=== PATIENT | female | born 1970 | race Hispanic/Latino ===

== ENCOUNTER 2017-06-07 16:38 | Emergency (ER) | payer MEDICAID, OTHER ==
[2017-06-07 16:46] VITALS: BMI 33.3
[2017-06-07 16:51] VITALS: BP 142/89; PULSE 97; TEMP 98.2; O2SAT 99
--- NOTE | 2017-06-07 17:06 | C.PDOC ---
History Of Present Illness 47 y/o female presents to the ED stating she thinks a tampon is stuck in her vagina. Pt has been on her period x5 days. Denies fever, chills, abdominal/ pelvic pain or any other complaints. Time Seen by Provider: 06/07/17 16:56 Chief Complaint (Nursing): Female Genitourinary History Per: Patient History/Exam Limitations: no limitations Onset/Duration Of Symptoms: Hrs Current Symptoms Are (Timing): Still Present Severity: Mild Quality Of Discomfort: denies: "Pain" Associated Symptoms: denies: Fever, Chills Recent travel outside of the [place]: No Past Medical History Reviewed: Historical Data, Nursing Documentation, Vital Signs Vital Signs: Last Vital Signs Temp 98.2 F 06/07/17 16:46 Pulse 97 H 06/07/17 16:46 Resp 18 06/07/17 17:27 BP 142/89 06/07/17 16:46 Pulse Ox 99 06/07/17 18:11 - Medical History PMH: Anxiety, Asthma, Bipolar Disorder, Colonic Polyps, Depression, Diverticulitis Surgical History: Appendectomy, Endoscopy - [facility] Procedures OTHER SKIN & SUBQ I D (05/06/13) Family History: States: Unknown Family Hx - Social History Hx Tobacco Use: Yes Hx Alcohol Use: No Hx Substance Use: No - Immunization History Hx Tetanus Toxoid Vaccination: No Hx Influenza Vaccination: No Hx Pneumococcal Vaccination: No Review Of Systems Constitutional: Negative for: Fever, Chills Gastrointestinal: Negative for: Abdominal Pain Genitourinary: Negative for: Pelvic Pain Physical Exam - Physical Exam Appears: Non-toxic, No Acute Distress Skin: Warm, Dry, No Rash Head: Atraumatic, Normacephalic Chest: Symmetrical Cardiovascular: Rhythm Regular Respiratory: Normal Breath Sounds, No Rales, No Rhonchi, No Wheezing Gastrointestinal/Abdominal: Soft, No Tenderness Pelvic: Vaginal Bleeding, No Cervical Motion Tenderness, Other (no foreign body) Neurological/Psych: Oriented x3, Normal Speech ED Course And Treatment O2 Sat by Pulse Oximetry: 99 (room air) Pulse Ox Interpretation: Normal Medical Decision Making Medical Decision Making: Patient with complaint of thinking tampon stuck in her vagina. Exam showed mild blood in vaginal canal, no tampon or foreign body, no CMT. Patient to be discharged Disposition Counseled Patient/Family Regarding: Diagnosis, Need For Followup - [facility]position [facility] Disposition: HOME/ ROUTINE Disposition Time: 17:05 Condition: STABLE Additional Instructions: You have been evaluated and examined with no finding of foreign object in vagina. Please follow up with your placement specialist for any other concern Instructions: Normal Exam (ED) Forms: [employer] (Welsh) - POA Present On Arrival: None - Clinical Impression Clinical Impression: No foreign body found on evaluation - PA / FINANCIAL ASSOCIATE / Resident Statement MD/DO has reviewed & agrees with the documentation as recorded. - Scribe Statement The provider has reviewed the documentation as recorded by the Scribe Horacio Nelson All medical record entries made by the Tona were at my direction and personally dictated by me. I have reviewed the chart and agree that the record accurately reflects my personal performance of the history, physical exam, medical decision making, and the department course for this patient. I have also personally directed, reviewed, and agree with the discharge instructions and disposition.
[2017-06-07 17:28] VITALS: RESP 18
== END 2017-06-07 17:28 | disposition home or self-care (01) ==
LOC: C.ER 16:38
DX: Z03.89 Encounter for observation for other suspected diseases and conditions ruled out (principal)

== ENCOUNTER 2018-11-03 02:46 | Inpatient (IN) | payer MEDICAID ==
[2018-11-03 02:47] VITALS: BMI 33.3
[2018-11-03] MEDS ORDERED: Folic Acid 1 MG, Thiamine 100 MG, Multivitamin (MVI) 10 ML in Dextrose 5% In Water 1,00... IV SCH (04:00)
[2018-11-03 04:27] LABS: SQUAMOUS EPITHIAL 2 /hpf (0-5); URINE BACTERIA RARE (<OCC); URINE BILIRUBIN NEGATIVE (NEGATIVE); URINE BLOOD NEGATIVE (NEGATIVE); URINE CLARITY Clear (Clear); URINE COLOR Yellow (YELLOW); URINE GLUCOSE (UA) NORMAL (Normal); URINE LEUKOCYTE ESTERASE TRACE Leu/uL (Negative); URINE PROTEIN 1+ mg/dL (NEGATIVE)
[2018-11-03 04:30] LABS: BASO # 0.1 K/uL (0.0-0.2); BASO % 0.9 % (0.0-2.0); EOS # 0.1 K/uL (0.0-0.7); EOS % 1.3 % (0.0-4.0); HEMOGLOBIN 15.2 g/dL (11.0-16.0); LYMPH # 1.5 K/uL (1.0-4.3); LYMPH % 21.1 % (20.0-40.0); MEAN CELL VOLUME 97.7 fL (81.0-99.0); MEAN CORPUSCULAR HEMOGLOBIN 33.2 pg (27.0-31.0); MEAN CORPUSCULAR HGB CONC 33.9 g/dL (33.0-37.0); MEAN PLATELET VOLUME 7.2 fL (7.2-11.7); MONO # 0.7 K/uL (0.0-0.8); MONO % 10.1 % (0.0-10.0); NEUT # 4.8 K/uL (1.8-7.0); NEUT % 66.6 % (50.0-75.0); NRBC % 0.5 % (0.0-2.0); RBC 4.59 Mil/uL (3.80-5.20); RED CELL DISTRIBUTION WIDTH 15.2 % (11.5-14.5); WHITE BLOOD COUNT 7.2 K/uL (4.8-10.8)
[2018-11-03 04:33] LABS: HCG,QUALITATIVE URINE NEGATIVE (NEGATIVE)
[2018-11-03 04:38] LABS: BARBITURATES, UR NEGATIVE (NEGATIVE); BENZODIAZEPINES, UR NEGATIVE (NEGATIVE); OPIATES, UR NEGATIVE (NEGATIVE); PHENCYCLIDINE, UR NEGATIVE (NEGATIVE)
[2018-11-03] MEDS: Folic Acid 1 MG, Thiamine 100 MG, Multivitamin (MVI) 10 ML in Dextrose 5% In Water 1,00... IV SCH (04:38)
[2018-11-03 04:46] LABS: ALB/GLOB RATIO 1.3 (1.0-2.1); ALBUMIN 4.1 g/dL (3.5-5.0); ALT/SGPT 110 U/L (9-52); AST/SGOT 191 U/L (14-36); BLOOD UREA NITROGEN 3 mg/dL (7-17); CALCIUM 7.9 mg/dl (8.6-10.4); GFR NON-AFRICAN AMERICAN > 60; LIPASE 516 U/L (23-300)
[2018-11-03] MEDS ORDERED: Iodixanol 320 MG/ML 100 ML BOTTLE IV ONE (05:15)
--- NOTE | 2018-11-03 05:34 | C.PDOC ---
History Of Present Illness 48 y/o F c PMHx alcohol abuse p/w abdominal pain, vomiting x 2 weeks. States has been drinking daily for 2 months. Pain is epigastric, nonradiating, boring in quality, severe. Denies fever, chills, chest pain, dyspnea, dysuria. Time Seen by Provider: 11/03/18 03:01 Chief Complaint (Nursing): Substance Abuse Past Medical History Vital Signs: Last Vital Signs Temp 98.7 F 11/03/18 03:09 Pulse 103 H 11/03/18 03:09 Resp 16 11/03/18 03:09 BP 117/74 11/03/18 03:09 Pulse Ox 97 11/03/18 03:09 - Medical History PMH: Anxiety, Asthma, Bipolar Disorder, Colonic Polyps, Depression, Diverticulitis Denies: Chronic Kidney Disease Surgical History: Appendectomy, Endoscopy - [facility] Procedures OTHER SKIN & SUBQ I D (05/06/13) Family History: States: Unknown Family Hx - Social History Hx Tobacco Use: Yes Hx Alcohol Use: Yes Hx Substance Use: No - Immunization History Hx Tetanus Toxoid Vaccination: No Hx Influenza Vaccination: No Hx Pneumococcal Vaccination: No Review Of Systems Except As Marked, All Systems Reviewed And Found Negative. Constitutional: Negative for: Fever Cardiovascular: Negative for: Chest Pain Physical Exam - Physical Exam Appears: No Acute Distress Skin: Rash (Erythematous face) Head: Normacephalic Eye(s): bilateral: PERRL Oral Mucosa: Moist Neck: Supple Cardiovascular: Rhythm Regular Respiratory: Normal Breath Sounds Gastrointestinal/Abdominal: Tenderness (epigastric) Back: No CVA Tenderness Extremity: No Tenderness Pulses: Left Radial: Normal, Right Radial: Normal Neurological/Psych: Normal Speech Gait: Steady ED Course And Treatment - Laboratory Results Result Diagrams: 11/03/18 04:25 11/03/18 04:25 O2 Sat by Pulse Oximetry: 97 Medical Decision Making Medical Decision Making: CT abd/pel Results: COMMENTS: Small sliding hiatal hernia. Mild diffuse thickening of the wall of the colon. The liver is of decreased attenuation without mass or defect. There is no intra or extrahepatic biliary ductal dilatation. The spleen is normal. The gallbladder is within normal limits. The pancreas is of normal contour and attenuation characteristics. There is no evidence of adrenal mass. Both kidneys demonstrate prompt and equal nephrograms. The kidneys are normal in size, shape and configuration. There is no evidence of renal or ureteral mass. No renal or ureteral calculi are identified. There is no hydroureter or hydronephrosis. No evidence for appendicitis. There is no bowel wall thickening. No evidence for small or large bowel obstruction. There is no evidence of abdominal ascites or lymphadenopathy. There is no evidence of intrinsic or extrinsic bladder mass. There is no pelvic ascites or lymphadenopathy. Mild diffuse thickening of the bladder. Images of the lung bases show no evidence of pleural or parenchymal mass. There are no pleural effusions. The bony structures are free of lytic or blastic lesions. IMPRESSION: Mild diffuse thickening of the colon. Underdistention, spasm versus mild colitis. Mild diffuse thickening of the bladder. Underdistention versus mild cystitis. Crisis evaluated patient, accepted for admission by Dr. Luis. Disposition - Disposition Disposition: HOSPITALIZED Disposition Time: 06:00 Condition: GUARDED Forms: [employer] (Togolese) - Clinical Impression Clinical Impression: Bipolar disorder, Alcohol use disorder, severe, dependence
[2018-11-03] MEDS ORDERED: Albuterol-Ipratrop 3 mg / 0.5 (3 ml) UD IH STA (07:45)
[2018-11-03] MEDS ORDERED: Albuterol-Ipratrop 3 mg / 0.5 (3 ml) UD ONE (07:53)
[2018-11-03] MEDS ORDERED: Albuterol-Ipratrop 3 mg / 0.5 (3 ml) UD INH PRN ×2 (08:58→22:45)
--- NOTE | 2018-11-03 10:23 | CT ---
Date of service: 11/03/2018 PROCEDURE: CT Abdomen and Pelvis with contrast HISTORY: abd pain, vomiting COMPARISON: None. TECHNIQUE: Contrast dose: Radiation dose: Total exam DLP = 1060.15 mGy-cm. This CT exam was performed using one or more of the following dose reduction techniques: Automated exposure control, adjustment of the mA and/or kV according to patient size, and/or use of iterative reconstruction technique. FINDINGS: LOWER THORAX: Unremarkable. LIVER: Severe fatty infiltration of the liver. No gross lesion or ductal dilatation. GALLBLADDER AND BILE DUCTS: Unremarkable. PANCREAS: Unremarkable. No gross lesion or ductal dilatation. SPLEEN: Unremarkable. ADRENALS: Unremarkable. No mass. KIDNEYS AND URETERS: Unremarkable. No hydronephrosis. No solid mass. VASCULATURE: Unremarkable. No aortic aneurysm. No aortic atherosclerotic calcification or mural plaque present. BOWEL: Unremarkable. No obstruction. No gross mural thickening. APPENDIX: Normal appendix. PERITONEUM: Unremarkable. No free fluid. No free air. LYMPH NODES: Unremarkable. No enlarged lymph nodes. BLADDER: Unremarkable. REPRODUCTIVE: Unremarkable. BONES: No acute fracture. OTHER FINDINGS: None. IMPRESSION: Severe fatty liver.
[2018-11-03] MEDS: Multiple Vitamins Tab PO SCH (10:40)
[2018-11-03] MEDS: Pantoprazole 40 mg EC Tab PO SCH (10:40)
--- NOTE | 2018-11-03 10:54 | PCM.PSYCH ---
Initial Psychiatric Evaluation - Initial Psychiatric Evaluation Type of Admission: Voluntary Legal Status: Capacity Chief Complaint (in patient's own words): I was feeling depressed.' History of Present Illness and Precipitating Events: Patient is a 48 yo, female, who came to the ED because of depressed mood and suicidal ideation. Patient reports history of few inpatient psychiatric hospitalizations in the past. She also reports history of follow-up with a psychiatrist at [facility], as well as the methadone program, '[facility].' Patient reports that she is drinking increasing amount of liquor these days. Patient reports of drinking more than a pint of liquor daily. Pt's initial KJC=011. Patient reports that "I've been throwing up even when I do drink" Pt reports symptoms of "bloated" face, "throwing up", and "closing" of the throat. She reports that she is been feeling like that for the past "2 or 3 weeks". She reports that yesterday she became increasingly depressed and developed suicidal ideation with a plan to overdose on her pills. So she came to the hospital to get help. She reports depressed mood, feelings of hopelessness, helplessness and worthlessness. She reports poor sleep and poor appetite. She reports anhedonia and poor energy. She also reports withdrawal symptoms from drinking, including, shakes, tremors, nausea, vomiting, headaches, cramps, sweating and anxiety. However she denies any auditory hallucinations or any paranoia. She denies any other substance abuse. Pt has a prior history of an incomplete suicide attempt, when she stepped on her left arm, few years ago. Patient reports of drinking since age 8. She also reports family history of drinking. She is going to [facility] and her daily methadone dose is 140 mg. Past medical history Asthma Current Medications: Active Medications Generic Name Dose Route Start Last Admin Trade Name Freq PRN Reason Stop Dose Admin Albuterol 1 puff 11/03/18 09:30 Ventolin Hfa 90 Mcg/Actuation (8 G) INH RQ4 PRN SOB Albuterol/Ipratropium 3 ml 11/03/18 08:58 Duoneb 3 Mg/0.5 Mg (3 Ml) Ud INH RQ2 PRN Severe SOB or wheezing Clonidine HCl 0.1 mg 11/03/18 08:56 Catapres PO Q4H PRN Symptoms of alcohol withdrawl Escitalopram Oxalate 10 mg 11/03/18 10:00 11/03/18 10:40 Lexapro PO 10 mg DAILY BRODIE Administration Folic Acid 1 mg 11/03/18 10:00 11/03/18 10:40 Folic Acid PO 1 mg DAILY BRODIE Administration Folic Acid 1 mg/ Thiamine HCl 1,011.2 mls @ 250 mls/hr 11/03/18 04:30 11/03/18 04:38 100 mg/ Multivitamins/Vitamin IV 250 mls/hr C 10 ml/ Dextrose Q24H BRODIE Administration Lorazepam 1 mg 11/03/18 08:56 Ativan PO 11/07/18 08:57 Q4H PRN Symptoms of alcohol withdrawl Lorazepam 1 mg 11/03/18 10:00 11/03/18 10:40 Ativan PO 11/08/18 09:59 1 mg Q4H BRODIE Administration Taper Mirtazapine 15 mg 11/03/18 22:00 Remeron PO HS BRODIE Multivitamins 1 tab 11/03/18 10:00 11/03/18 10:40 Hexavitamin PO 1 tab DAILY BRODIE Administration Pantoprazole Sodium 40 mg 11/03/18 10:00 11/03/18 10:40 Protonix Ec Tab PO 40 mg DAILY BRODIE Administration Thiamine HCl 100 mg 11/03/18 10:00 11/03/18 10:44 Vitamin B1 Tab PO 100 mg DAILY BRODIE Administration Trazodone HCl 50 mg 11/03/18 08:56 Desyrel PO HS PRN Insomnia Past Psychiatric History - Past Psychiatric History Previous Treatment History: Inpatient Pertinent Medical Hx (Current Medical&Sleep Prob, Allergies): Allergies Allergy/AdvReac Type Severity Reaction Status Date / Time ciprofloxacin Allergy Verified 11/03/18 03:14 Escitalopram [Lexapro] 10 mg PO DAILY 08/08/15 Ziprasidone HCl [Geodon] 80 mg PO BID 08/08/15 clonazePAM [clonAZEPAM] 1 mg PO BID 08/08/15 traZODone [Desyrel] 200 mg PO HS 08/08/15 Fluticasone Propionate [Flovent Hfa] 0.22 mg IH DAILY 08/25/15 Pantoprazole Sodium 20 mg PO DAILY 08/25/15 Cyclobenzaprine [Cyclobenzaprine HCl] 10 mg PO TID 06/07/17 Ibuprofen [Motrin] 600 mg PO TID 06/07/17 Review of Systems - Review of Systems All systems: reviewed and no additional remarkable complaints except - Psychiatric Psychiatric: Anxiety, Irritability, Suicidal Ideation Mental Status Examination - Personal Presentation Personal Presentation: Looks stated age - Affect Affect: Constricted, Depressed - Motor Activity Motor Activity: Calm - Reliability in Providing Information Reliability in Providing Information: Fair - Speech Speech: Organized - Mood Mood: Depressed, Anxious - Formal Thought Process Formal Thought Process: No Impairment - Obsessions/Compulsions Obsessions: No Compulsions: No - Cognitive Functions Orientation: Person, Place, Situation, Time Sensorium: Alert Attention/Concentration: Attentive Abstract Thinking: Golf Estimate of Intelligence: Below average Judgement: Imparied, as evidence by: Poor judgement, Imparied, as evidence by: Lack of insight into illness - Risk Risk: Suicidal, Withdrawal, Diminished functioning - Limitations Limitations: Living alone DSM 5 DX - DSM 5 DSM 5 Diagnosis: Major depressive disorder recurrent severe without psychotic features Alcohol use disorder severe Alcohol withdrawal Opioid use disorder severe on Agonist therapy - Recommended/Plan of Treatment Treatment Recommendations and Plan of Treatment: Major depressive disorder recurrent severe without psychotic features Alcohol use disorder severe Alcohol withdrawal Opioid use disorder severe on Agonist therapy CBT Psychoeducation Supportive therapy and group therapy Trazodone 50 mg p.o. nightly Hydroxyzine 25 mg p.o. every 6 hours as needed Lexapro 10 mg p.o. daily Remeron 15 mg p.o. nightly Trazodone 200 mg p.o. nightly Ativan taper Methadone 140 mg p.o. daily
--- NOTE | 2018-11-03 11:16 | RAD ---
Date of service: 11/03/2018 PROCEDURE: CHEST RADIOGRAPH, 1 VIEW HISTORY: wheezing COMPARISON: 04/18/2018. FINDINGS: LUNGS: Clear. PLEURA: No pneumothorax or pleural fluid seen. CARDIOVASCULAR: No aortic atherosclerotic calcification present. Normal. OSSEOUS STRUCTURES: No significant abnormalities. VISUALIZED UPPER ABDOMEN: Normal. OTHER FINDINGS: None. IMPRESSION: No active disease.No significant interval change compared to the prior examination(s). Concordant results with the preliminary interpretation rendered by the emergency department physician procedure.
--- NOTE | 2018-11-03 11:42 | PCM.BM ---
<Gala Barkley - Last Filed: 11/03/18 11:39> Treatment Plan Problems - Problems identified on initial assessmt Bipolar disorder Date Initiated: 11/03/18 Time Initiated: 09:10 Assessment reference: NA Status: Active Alcohol Abuse Date Initiated: 11/03/18 Time Initiated: 09:10 Assessment reference: NA Status: Active Treatment assets and liabiliti Patient Assests: cooperative, resourceful (Pt. informe of the [facility] for methadone), physically healthy, good support system (Live near by mom), financial stabiity (Received social benefit.) Patient Liabilities: live alone ([address] substance abuse, medical problems (Obese) - Milieu Protocol Maintain good personal hygiene: daily Encourage regular showers, daily Remind patient to perform daily oral care, daily Assist patient to perform ADL's Maintain personal safety: every shift Educate patient to report safety concerns to staff, every shift Monitor environment for contraband/sharps Medication safety: Monitor for expected outcome, potential side effects: every shift, Assess barriers to learning: every shift, Assess readiness for medication education: every shift <Sekou Luis - Last Filed: 11/05/18 14:34> - Diagnosis (1) Alcohol use disorder, severe, dependence Status: Acute Interventions: 11/04/18 14:34 * Assess 7x/week regarding severity of withdrawal * Educate regarding risks, benefits, side effects and alternatives of medications * Use Motivational Interviewing for abstinence * Use CBT for relapse prevention * Medication management for withdrawal symptoms * Encourage medication assisted treatment * (2) Bipolar disorder Status: Acute Interventions: 11/04/18 14:34 * Assess/adjust medications daily and /or as needed * See patient on an individual basis 7x/week to assess level of manic behaviors and stability * Discuss risks, benefits, side effects and alternatives of medications *
[2018-11-03] MEDS ORDERED: Methadone 40 mg Tab PO SCH (11:45)
[2018-11-03] MEDS: Albuterol HFA 90 mcg/actuation (8 g) INH PRN (12:29)
[2018-11-03] MEDS ORDERED: Methadone 40 mg Tab PO ONE (13:30)
--- NOTE | 2018-11-03 16:12 | CP.PCM.CON ---
History of Present Illness - History of Present Illness History of Present Illness: PGY1 Consult Note for Dr. Berry Reason for Consult: lower extremity edema b/l Patient has a past medical history of asthma, depression, diverticulitis, bipolar disorder, opioid abuse (on methadone) and alcohol abuse. Medicine consu lted for unilateral R leg edema. Patient states that she noticed swelling of her right foot and ankle about 2-3 days ago which came on suddenly. The pain is 10/10 and does not radiate to proximal leg or foot. Patient notes increased numbness/tingling. States she has an allergy to Cipro, but has not taken recently. She denies any recent trauma to the area including cuts, scrapes, bruises, or walking barefoot. Denies history of DVT/PE. Pt is a 1/2 ppd smoker. Denies OCP use. She is currently unemployed and lives at home with her mother. Patient does also report facial swelling, though states she gets this from drinking. Denies facial pain, does report blurry vision though states she gets this from withdrawal. Denies shortness of breath out of proportion to her usual asthma. PMH: asthma, depression, diverticulitis, bipolar disorder, opioid abuse (on methadone) and alcohol abuse PSH: appendectomy, ovarian cystectomy, partial colectomy, multiple surgeries on R foot (ingrown toenail removal, unknown other) Family: Denies/unknown Social: opioid abuse (on methadone) and alcohol abuse. tobacco use. Denies any current IV drug use. Drinks 2 pints liquor/day. Last drink and cigarette yesterday. Unemployed, lives with mother. Allergies: Ciprofloxacin Meds: trazodone 200mg PO HS, clonazepam 1mg PO BID, geodon 80mg PO BID, Protonix 20mg PO daily, motrin 600mg PO TID, flovent 0.22mg IH daily, Lexapro 10mg PO daily, flexaril 10mg PO TID PMD: Dr. Adair Review of Systems - Constitutional Constitutional: absent: Chills, Fever - EENT Eyes: absent: Blurred Vision, Loss of Vision Ears: Dizziness. absent: Abnormal Hearing Nose/Mouth/Throat: absent: Nasal Congestion, Nasal Discharge - Cardiovascular Cardiovascular: absent: Chest Pain, Chest Pain at Rest, Claudication - Respiratory Respiratory: absent: Dyspnea - Gastrointestinal Gastrointestinal: absent: Constipation, Diarrhea - Musculoskeletal Musculoskeletal: Numbness, Tingling Additional comments: RLE numbnss/tingling - Integumentary Integumentary: absent: Pruritus - Neurological Neurological: Dizziness. absent: Headaches Past Patient History - Past Medical History & Family History Past Medical History?: Yes - Past Social History Smoking Status: Light Smoker < 10 Cigarettes Daily - CARDIAC Hx Cardiac Disorders: No Hx Hypertension: No - PULMONARY Hx Tuberculosis: No - NEUROLOGICAL HX Cerebrovascular Accident: No Hx Seizures: No - HEENT Hx HEENT Problems: No - RENAL Hx Chronic Kidney Disease: No - ENDOCRINE/METABOLIC Hx Endocrine Disorders: No - HEMATOLOGICAL/ONCOLOGICAL Hx Cancer: No Hx Human Immunodeficiency Virus (HIV): No - INTEGUMENTARY Hx Dermatological Problems: No - MUSCULOSKELETAL/RHEUMATOLOGICAL Hx Musculoskeletal Disorders: No - GASTROINTESTINAL Hx Diverticulitis: Yes - GENITOURINARY/GYNECOLOGICAL Hx Sexually Transmitted Disorders: No - PSYCHIATRIC Hx Anxiety: Yes Hx Bipolar Disorder: Yes Hx Depression: Yes Hx Substance Use: No - SURGICAL HISTORY Hx Appendectomy: Yes - ANESTHESIA Hx Anesthesia: Yes Hx Anesthesia Reactions: No Hx Malignant Hyperthermia: No Meds Allergies/Adverse Reactions: Allergies Allergy/AdvReac Type Severity Reaction Status Date / Time ciprofloxacin Allergy Verified 11/03/18 03:14 - Medications Medications: Current Medications Albuterol (Ventolin Hfa 90 Mcg/Actuation (8 G)) 1 puff INH RQ4 PRN PRN Reason: SOB Last Admin: 11/03/18 12:29 Dose: 1 puff Albuterol/Ipratropium (Duoneb 3 Mg/0.5 Mg (3 Ml) Ud) 3 ml INH RQ2 PRN PRN Reason: Severe SOB or wheezing Clonidine HCl (Catapres) 0.1 mg PO Q4H PRN PRN Reason: Symptoms of alcohol withdrawl Escitalopram Oxalate (Lexapro) 10 mg PO DAILY [facility] Last Admin: 11/03/18 10:40 Dose: 10 mg Folic Acid (Folic Acid) 1 mg PO DAILY [facility] Last Admin: 11/03/18 10:40 Dose: 1 mg Folic Acid 1 mg/ Thiamine HCl 100 mg/ Multivitamins/Vitamin C 10 ml/ Dextrose 1,011.2 mls @ 250 mls/hr IV Q24H [facility] Last Admin: 11/03/18 04:38 Dose: 250 mls/hr Lorazepam (Ativan) 1 mg PO Q4H PRN PRN Reason: Symptoms of alcohol withdrawl Stop: 11/07/18 08:57 Last Admin: 11/03/18 15:29 Dose: 1 mg Lorazepam (Ativan) 1 mg PO Q4H [facility]; Taper Stop: 11/08/18 09:59 Last Admin: 11/03/18 14:36 Dose: 1 mg Mirtazapine (Remeron) 15 mg PO HS [facility] Multivitamins (Hexavitamin) 1 tab PO DAILY [facility] Last Admin: 11/03/18 10:40 Dose: 1 tab Pantoprazole Sodium (Protonix Ec Tab) 40 mg PO DAILY [facility] Last Admin: 11/03/18 10:40 Dose: 40 mg Thiamine HCl (Vitamin B1 Tab) 100 mg PO DAILY [facility] Last Admin: 11/03/18 10:44 Dose: 100 mg Trazodone HCl (Desyrel) 50 mg PO HS PRN PRN Reason: Insomnia Physical Exam - Head Exam Head Exam: ATRAUMATIC Additional comments: mild facial erythema/swelling - Eye Exam Eye Exam: EOMI, Normal appearance - ENT Exam ENT Exam: Mucous Membranes Moist - Respiratory Exam Respiratory Exam: Clear to Auscultation Bilateral, NORMAL BREATHING PATTERN. absent: Rhonchi, Wheezes - Cardiovascular Exam Cardiovascular Exam: REGULAR RHYTHM, +S1, +S2 - GI/Abdominal Exam GI & Abdominal Exam: Normal Bowel Sounds, Soft. absent: Tenderness - Extremities Exam Extremities exam: Positive for: pedal edema Additional comments: B/l pitting edema. R lower extremity erythema and tenderness. Tenderness with calf squeeze. Healed scar 2/2 told foot surgery. - Back Exam Back exam: absent: vertebral tenderness - Neurological Exam Neurological exam: Alert, CN II-XII Intact, Normal Gait, Oriented x3 - Psychiatric Exam Psychiatric exam: Normal Affect - Skin Skin Exam: Dry, Intact Additional comments: Erythematic RLE near ankle/calf Results - Vital Signs Recent Vital Signs: Last Vital Signs Temp 98.4 F 11/03/18 14:56 Pulse 103 H 11/03/18 14:56 Resp 19 11/03/18 14:56 BP 112/66 11/03/18 14:56 Pulse Ox 95 11/03/18 08:14 - Labs Result Diagrams: 11/03/18 04:25 11/03/18 04:25 Labs: Laboratory Results - last 24 hr 11/03/18 11/03/18 11/03/18 04:18 04:18 04:25 WBC 7.2 D RBC 4.59 Hgb 15.2 Hct 44.9 MCV 97.7 D MCH 33.2 H MCHC 33.9 RDW 15.2 H Plt Count 169 MPV 7.2 Neut % (Auto) 66.6 Lymph % (Auto) 21.1 [place] % (Auto) 10.1 H Eos % (Auto) 1.3 Baso % (Auto) 0.9 Neut # (Auto) 4.8 Lymph # (Auto) 1.5 [place] # (Auto) 0.7 Eos # (Auto) 0.1 Baso # (Auto) 0.1 Sodium Potassium Chloride Carbon Dioxide Anion Gap BUN Creatinine Est GFR ( Amer) Est GFR (Non-Af Amer) Random Glucose Calcium Phosphorus Magnesium Total Bilirubin AST ALT Alkaline Phosphatase Total Protein Albumin Globulin Albumin/Globulin Ratio Lipase Urine Color Yellow Urine Clarity Clear Urine pH 8.0 Ur Specific [place] 1.006 Urine Protein 1+ H Urine Glucose (UA) Normal Urine Ketones Negative Urine Blood Negative Urine Nitrate Negative Urine Bilirubin Negative Urine Urobilinogen 2.0 H Ur Leukocyte Esterase Trace Urine WBC (Auto) 1 Urine RBC (Auto) 1 Ur Squamous Epith Cells 2 Urine Bacteria Rare Urine HCG, Qual Negative Urine Opiates Screen Negative Urine Methadone Screen Positive H Ur Barbiturates Screen Negative Ur Phencyclidine Scrn Negative Ur Amphetamines Screen Negative U Benzodiazepines Scrn Negative U Oth Cocaine Metabols Negative U Cannabinoids Screen Negative Alcohol, Quantitative 11/03/18 04:25 WBC RBC Hgb Hct MCV MCH MCHC RDW Plt Count MPV Neut % (Auto) Lymph % (Auto) [place] % (Auto) Eos % (Auto) Baso % (Auto) Neut # (Auto) Lymph # (Auto) [place] # (Auto) Eos # (Auto) Baso # (Auto) Sodium 138 Potassium 3.9 Chloride 95 L Carbon Dioxide 34 H Anion Gap 13 BUN 3 L Creatinine 0.5 L Est GFR ( Amer) > 60 Est GFR (Non-Af Amer) > 60 Random Glucose 107 H Calcium 7.9 L Phosphorus 2.7 Magnesium 1.4 L Total Bilirubin 0.4 AST 191 H ALT 110 H Alkaline Phosphatase 120 Total Protein 7.1 Albumin 4.1 Globulin 3.0 Albumin/Globulin Ratio 1.3 Lipase 516 H Urine Color Urine Clarity Urine pH Ur Specific [place] Urine Protein Urine Glucose (UA) Urine Ketones Urine Blood Urine Nitrate Urine Bilirubin Urine Urobilinogen Ur Leukocyte Esterase Urine WBC (Auto) Urine RBC (Auto) Ur Squamous Epith Cells Urine Bacteria Urine HCG, Qual Urine Opiates Screen Urine Methadone Screen Ur Barbiturates Screen Ur Phencyclidine Scrn Ur Amphetamines Screen U Benzodiazepines Scrn U Oth Cocaine Metabols U Cannabinoids Screen Alcohol, Quantitative 212 H Assessment & Plan - Assessment and Plan (Free Text) Assessment: 48 yo F with past medical history of asthma, depression, diverticulitis, bipolar disorder, opioid abuse (on methadone) and alcohol abuse, admitted to psychiatry unit for bipolar disorder and alcohol abuse. Medicine consulted for evaluation of b/l lower extremity edema. Plan: Lower Extremity Edema, r/o DVT - follow up b/l LE dopplers - f/u D Dimer - R foot Xray -f/u Asthma - continue duonebs 3ml INH q2h PRN - continue ventolin 1 puff q2h PRN - Mucinex PO prn - Duoneb Q2 prn Bipolar Disorder Management per Primary Team - continue lexapro 10mg PO daily - continue mirtazapine 15mg PO HS - continue trazodone 50mg PO HS PRN Alcohol Use Disorder Management per Primary Team - continue clonidine 0.1mg PO q4h PRN - continue folic acid 1mg PO daily - continue ativan 1mg PO q4h PRN - continue multivitamin 1 tab PO daily - continue thiamine 100mg PO daily - F/u echo r/o alcoholic cardiomyopathy - F/u pro-BNP - F/u abd US assess cirrhosis/ascites Anxiety/ Depression Management per Primary Team - continue lexapro 10mg PO daily - continue mirtazapine 15mg PO HS - continue trazodone 50mg PO HS PRN PPX GI: continue protonix Patient seen and case reviewed with Dr. Kristi White, PGY-1
--- NOTE | 2018-11-03 18:09 | US ---
Date of service: 11/03/2018 HISTORY: assess for cirrhosis/ascites COMPARISON: 11/03/2018 CT abdomen and pelvis TECHNIQUE: Sonographic evaluation of the abdomen. FINDINGS: LIVER: Measures 22.8 cm. Hepatopedal blood flow. Fatty infiltration manifest ultrasonographically as increased echogenicity of the liver parenchyma. No mass. No intrahepatic bile duct dilatation. GALLBLADDER: Unremarkable. No gallstones. COMMON BILE DUCT: Measures 5.1 mm. No stones. No dilatation. PANCREAS: Unremarkable as visualized. No mass. No ductal dilatation. RIGHT KIDNEY: Measures 4.4 x 12.0cm. Normal echogenicity. No calculus, mass, or hydronephrosis. LEFT KIDNEY: Measures 5.5 x 12.5cm. Normal echogenicity. No calculus, mass, or hydronephrosis. SPLEEN: Normal in size and contour. No mass. AORTA: No aneurysmal dilatation. IVC: Unremarkable. OTHER FINDINGS: None. IMPRESSION: Hepatomegaly/hepatic steatosis. This confirms findings identified on concurrent CT of the abdomen and pelvis. Otherwise unremarkable study.
[2018-11-03] MEDS: guaiFENesin 600 mg ER Tab PO SCH (18:30)
[2018-11-04] MEDS: Folic Acid 1 MG, Thiamine 100 MG, Multivitamin (MVI) 10 ML in Dextrose 5% In Water 1,00... IV SCH (05:25)
[2018-11-04] MEDS: Albuterol HFA 90 mcg/actuation (8 g) INH PRN (06:57)
--- NOTE | 2018-11-04 08:33 | RAD ---
Date of service: 11/03/2018 PROCEDURE: Right Foot Radiographs. HISTORY: foot swelling COMPARISON: None. FINDINGS: BONES: No acute fracture or destructive bony lesion identified. Postoperative changes are appreciated likely from prior bunionectomy at the distal 1st metatarsal bone. Navicular accessory ossicles are identified. JOINTS: No subluxation or dislocation. Advanced degenerative changes seen at the 1st metatarsophalangeal joint as well as the interphalangeal joint of the great toe lesser degenerative changes appreciated in the remaining interphalangeal joints diffusely. SOFT TISSUES: Moderate forefoot/midfoot dorsal soft tissue edema appreciated without emphysematous change or retained radiodense foreign body evident. Ossification of the insertion of the Achilles tendon is appreciated minimally. OTHER FINDINGS: None. IMPRESSION: No acute fracture dislocation right foot. Moderate edema is seen at the forefoot/midfoot dorsal soft tissues. Prior post bunionectomy changes are suspected at the 1st metatarsal bone with advanced degenerative joint disease at the great toe and 1st metatarsophalangeal joint. Lesser degenerative changes are seen throughout the remaining digits.
[2018-11-04] MEDS: Multiple Vitamins Tab PO SCH (09:10)
[2018-11-04] MEDS: Pantoprazole 40 mg EC Tab PO SCH (09:10)
[2018-11-04] MEDS: guaiFENesin 600 mg ER Tab PO SCH ×2 (09:10→17:56)
[2018-11-04] MEDS ORDERED: Iodixanol 320 MG/ML 100 ML BOTTLE IV ONE (10:26)
[2018-11-04] MEDS ORDERED: Methadone 40 mg Tab PO ONE (11:45)
--- NOTE | 2018-11-04 14:18 | CT ---
Date of service: 11/04/2018 PROCEDURE: CT Chest with contrast (Pulmonary Angiogram) HISTORY: SOB with elevatged d-dimer r/o PE COMPARISON: None available. TECHNIQUE: Axial computed tomography images were obtained of the chest in the pulmonary arterial phase of enhancement. Coronal and sagittal reformatted images were created and reviewed. Intravenous contrast dose: Visipaque 320, 100 cc Radiation dose: Total exam DLP = 628.99 mGy-cm. This CT exam was performed using one or more of the following dose reduction techniques: Automated exposure control, adjustment of the mA and/or kV according to patient size, and/or use of iterative reconstruction technique. FINDINGS: PULMONARY ARTERIES: Unremarkable. No pulmonary embolism. AORTA: No acute findings. No thoracic aortic aneurysm. No aortic atherosclerotic calcification or mural plaque present. LUNGS: No infiltrate or central airway mass is identified. No suspicious parenchymal mass bilaterally. Trace linear atelectasis or fibrosis seen at the bilateral lung bases at the lower lobes and in a couple of calcified granulomata are seen at the left upper and right middle lobes. PLEURAL SPACES: Unremarkable. No effusion or pneumothorax. HEART: Unremarkable thoracic inlet. Unremarkable. No cardiomegaly. No significant pericardial effusion. LYMPH NODES: No significant lymphadenopathy. BONES, CHEST WALL: Unremarkable. No fracture or destructive lesion OTHER FINDINGS: A mild amount of fluid is seen in the mid to distal esophagus with limited mural thickening seen distally. Clinically correlate for potential esophagitis. IMPRESSION: 1. No CT evidence of pulmonary embolus as per above. 2. No acute infiltrate, pleural or pericardial effusion. No pulmonary vascular congestion or cardiomegaly. 3. Minimal post granulomatous change right middle and upper lobes with linear atelectasis or fibrosis bilateral lower lobe bases. 4. Incidental prominent hepatic steatosis reiterated as demonstrated in prior abdomen pelvis CT 11/03/2018.
--- NOTE | 2018-11-04 15:37 | CP.PCM.PN ---
Subjective - Date & Time of Evaluation Date of Evaluation: 11/04/18 Time of Evaluation: 15:40 - Subjective Subjective: PGY-[address] Berry Patient seen and examined on . Overnight resident was paged because patient was desaturating when off 02 nasal canula. On NC patient is satting in low 90s but in no acute distress. Nursing asking for patient to be transferred to [facility] because of need for 02 nasal canula. Psych has arranged to patient transfer to [facility] Objective - Vital Signs/Intake and Output Vital Signs (last 24 hours): Temp Pulse Resp BP Pulse Ox 98.4 F 81 18 129/84 88 L 11/04/18 06:51 11/04/18 06:58 11/04/18 06:58 11/04/18 06:58 11/04/18 06:58 - Medications Medications: Current Medications Albuterol (Ventolin Hfa 90 Mcg/Actuation (8 G)) 1 puff INH RQ4 PRN PRN Reason: SOB Last Admin: 11/04/18 06:57 Dose: 1 puff Albuterol/Ipratropium (Duoneb 3 Mg/0.5 Mg (3 Ml) Ud) 3 ml INH RQ2 PRN PRN Reason: Severe SOB or wheezing Clonidine HCl (Catapres) 0.1 mg PO Q4H PRN PRN Reason: Symptoms of alcohol withdrawl Escitalopram Oxalate (Lexapro) 10 mg PO DAILY [facility] Last Admin: 11/04/18 09:10 Dose: 10 mg Folic Acid (Folic Acid) 1 mg PO DAILY [facility] Last Admin: 11/04/18 09:11 Dose: 1 mg Guaifenesin (Mucinex La) 600 mg PO BID [facility] Last Admin: 11/04/18 09:10 Dose: 600 mg Heparin Sodium (Porcine) (Heparin) 5,000 units SC Q8 [facility] Last Admin: 11/04/18 13:59 Dose: 5,000 units Folic Acid 1 mg/ Thiamine HCl 100 mg/ Multivitamins/Vitamin C 10 ml/ Dextrose 1,011.2 mls @ 250 mls/hr IV Q24H [facility] Last Admin: 11/04/18 05:25 Dose: Not Given Ibuprofen (Motrin Tab) 600 mg PO Q6H PRN PRN Reason: Pain, moderate (4-7) Last Admin: 11/04/18 06:56 Dose: 600 mg Lorazepam (Ativan) 1 mg PO Q4H PRN PRN Reason: Symptoms of alcohol withdrawl Stop: 11/07/18 08:57 Last Admin: 11/03/18 15:29 Dose: 1 mg Lorazepam (Ativan) 1 mg PO Q6H [facility]; Taper Stop: 11/08/18 09:59 Last Admin: 11/04/18 09:11 Dose: Not Given Methadone HCl (Methadose) 120 mg PO DAILY [facility] Methadone HCl (Methadone) 20 mg PO DAILY [facility] Mirtazapine (Remeron) 15 mg PO HS [facility] Last Admin: 11/03/18 22:28 Dose: 15 mg Multivitamins (Hexavitamin) 1 tab PO DAILY [facility] Last Admin: 11/04/18 09:10 Dose: 1 tab Ondansetron HCl (Zofran Inj) 4 mg IM Q6H PRN PRN Reason: Nausea/Vomiting Last Admin: 11/03/18 21:52 Dose: 4 mg Pantoprazole Sodium (Protonix Ec Tab) 40 mg PO DAILY [facility] Last Admin: 11/04/18 09:10 Dose: 40 mg Thiamine HCl (Vitamin B1 Tab) 100 mg PO DAILY [facility] Last Admin: 11/04/18 09:10 Dose: 100 mg Trazodone HCl (Desyrel) 200 mg PO HS PRN PRN Reason: Insomnia - Labs Labs: 11/03/18 04:25 11/03/18 04:25 - Constitutional Appears: Non-toxic, No Acute Distress, Other (drowsy) - Head Exam Head Exam: ATRAUMATIC Additional comments: mild facial erythema/swelling - Eye Exam Eye Exam: EOMI, Normal appearance - ENT Exam ENT Exam: Mucous Membranes Moist - Respiratory Exam Respiratory Exam: Clear to Ausculation Bilateral, NORMAL BREATHING PATTERN. absent: Rhonchi, Wheezes Additional comments: Coughing productive with mucous - Cardiovascular Exam Cardiovascular Exam: REGULAR RHYTHM - GI/Abdominal Exam GI & Abdominal Exam: Soft, Normal Bowel Sounds. absent: Tenderness - Extremities Exam Additional comments: B/l pitting edema. R lower extremity erythema and tenderness. Tenderness with calf squeeze. Healed scar 2/2 told foot surgery. - Neurological Exam Neurological Exam: Alert, Awake, Oriented x3 - Psychiatric Exam Psychiatric exam: Agitated (Agitated asking for methadone), Normal Affect - Skin Skin Exam: Dry, Intact Assessment and Plan - Assessment and Plan (Free Text) Assessment: 48 yo F with past medical history of asthma, depression, diverticulitis, bipolar disorder, opioid abuse (on methadone) and alcohol abuse, admitted to psychiatry unit for bipolar disorder and alcohol abuse. Medicine consulted for evaluation of b/l lower extremity edema. Plan: Lower Extremity Edema with Elevated D-dimer - follow up b/l LE dopplers - Mildly elevated D-Dimer - 302 - R foot Xray - 11/03: NO acute fracture or dislocation of right foot. Moderate edema is seen at the forefoot/midfoot dorsal soft tissues. Prior post bunionectomy changes are suspected at the 1st metatarsal bone with advanced degenerative joint disease at the great toe and 1st metatarsophalangeal joint. Lesser degenerative changes are seen throughout the remaining digits. Oxygen desaturation in presence of elevated D-dimer with LE dopplers pending - CT angio ordered for SOB and O2 de-saturation when off NC while dopplers are pending. No evidence of PE as below: - --CT angiogram 11/04: No CT evidence of PE. No acute infiltrate, pleural or pericardial effusion. No pulmonary vascular congestion or cardiomegaly. Minimal post granulomatous change right middle and upper lobes with linear atelectasis or fibrosis bilateral lower lobe bases. Incidental prominent hepatic steatosis reiterated as demonstrated in prior abdomen pelvis CT . Asthma - Duonebs 3ml INH q2h PRN - Ventolin 1 puff q2h PRN - Mucinex PO prn Bipolar Disorder Management per Primary Team - Continue home meds - Lexapro 10mg PO daily - Mirtazapine 15mg PO HS - Trazodone 50mg PO HS PRN Alcohol Use Disorder Management per Primary Team - CT abdomen and pelvis 11/03: Severe fatty liver - Abdominal US 11/03: Hepatomegal/hepatic steatosis. This confirms findings identified on concurrent CT of the abdomen and pelvis. Otherwise unremarkable study - Clonidine 0.1mg PO q4h PRN - Folic acid 1mg PO daily - Ativan 1mg PO q4h PRN - Multivitamin 1 tab PO daily - Thiamine 100mg PO daily - F/u echo r/o alcoholic cardiomyopathy - pro-BNP WNL Anxiety/ Depression Management per Primary Team - Lexapro 10mg PO daily - Mirtazapine 15mg PO HS - Trazodone 50mg PO HS PRN PPX GI: Protonix DVT: Heparin 5000 U SC Q8 Patient seen and case reviewed with Dr. Kristi White, PGY-1
--- NOTE | 2018-11-04 16:18 | PCM.PYCHPN ---
Psychiatric Progress Note - Psychiatric Progress Note Patient seen today, length of contact: 15 min Patient Chief Complaint: I was feeling depressed.' Problems Identified/Issues Discussed: Patient seen and evaluated, chart reviewed and discussed the staff. Patient still reports depressed mood and at times feelings of hopelessness and helplessness. She still reports withdrawal symptoms from drinking drinking including sweating, headaches, shakes. She also reports nausea and vomiting. She reports poor sleep and poor appetite. Denies any auditory hallucination or any paranoia. She is taking medication but denies any side effects. Supportive therapy was given PN: Per staff her pulse ox is low and she is on continuous oxygen monitoring Medication Change: Yes Medical Record Reviewed: Yes Mental Status Examination - Cognitive Function Orientation: Person, Place, Situation, Time Memory: Intact Attention: WNL Concentration: Poor Association: Loose Fund of Knowledge: Poor - Mood Mood: Depressed, Anxious - Affect Affect: Constricted, Depressed - Speech Speech: Soft - Formal Thought Process Formal Thought Process: No Impairment - Suicidal Ideation Suicidal Ideation: No - Homicidal Ideation Homicidal Ideation: No Goal/Treatment Plan - Goal/Treatment Plan Need for Continued Stay: Severe depression anxiety, Severe functional impairment Progress Toward Problem(s) and Goals/Treatment Plan: Major depressive disorder recurrent severe without psychotic features Alcohol use disorder severe Alcohol withdrawal Opioid use disorder severe on Agonist therapy CBT Psychoeducation Supportive therapy and group therapy Trazodone 50 mg p.o. nightly Hydroxyzine 25 mg p.o. every 6 hours as needed Lexapro 10 mg p.o. daily Remeron 15 mg p.o. nightly Trazodone 200 mg p.o. nightly Ativan taper Methadone 140 mg p.o. daily Medicine consulted because of low pulse ox, and leg swellings.
[2018-11-05] MEDS: Folic Acid 1 MG, Thiamine 100 MG, Multivitamin (MVI) 10 ML in Dextrose 5% In Water 1,00... IV SCH (05:30)
[2018-11-05 07:30] LABS: URIC ACID 6.9 mg/dL (2.2-7.5)
[2018-11-05] MEDS: Methadone 40 mg Tab PO SCH (09:58)
[2018-11-05] MEDS: Pantoprazole 40 mg EC Tab PO SCH (10:00)
[2018-11-05] MEDS: Multiple Vitamins Tab PO SCH (10:00)
[2018-11-05] MEDS: guaiFENesin 600 mg ER Tab PO SCH ×2 (10:01→18:00)
--- NOTE | 2018-11-05 10:02 | CP.PCM.PN ---
<Pam Gaming - Last Filed: 11/05/18 16:54> Subjective - Date & Time of Evaluation Date of Evaluation: 11/05/18 Time of Evaluation: 10:00 - Subjective Subjective: PGY-1 Medicine Progress Note for Dr. Phuong Mckeon Patient was seen and examined today at bedside in no acute distress. Nurse reports no overnight events. Patient has no new complaints. Patient still requires O2 via NC for security. Denies chest pain, headache, n/v/c/d. Objective - Vital Signs/Intake and Output Vital Signs (last 24 hours): Temp Pulse Resp BP Pulse Ox 98.5 F 79 20 123/79 95 11/05/18 07:00 11/05/18 07:00 11/05/18 07:00 11/05/18 07:00 11/05/18 07:00 - Medications Medications: Current Medications Albuterol (Ventolin Hfa 90 Mcg/Actuation (8 G)) 1 puff INH RQ4 PRN PRN Reason: SOB Last Admin: 11/04/18 06:57 Dose: 1 puff Albuterol/Ipratropium (Duoneb 3 Mg/0.5 Mg (3 Ml) Ud) 3 ml INH RQ2 PRN PRN Reason: Severe SOB or wheezing Clonidine HCl (Catapres) 0.1 mg PO Q4H PRN PRN Reason: Symptoms of alcohol withdrawl Escitalopram Oxalate (Lexapro) 10 mg PO DAILY [facility] Last Admin: 11/04/18 09:10 Dose: 10 mg Folic Acid (Folic Acid) 1 mg PO DAILY [facility] Last Admin: 11/04/18 09:11 Dose: 1 mg Guaifenesin (Mucinex La) 600 mg PO BID [facility] Last Admin: 11/04/18 17:56 Dose: 600 mg Heparin Sodium (Porcine) (Heparin) 5,000 units SC Q8 [facility] Last Admin: 11/05/18 05:55 Dose: 5,000 units Ibuprofen (Motrin Tab) 600 mg PO Q6H PRN PRN Reason: Pain, moderate (4-7) Last Admin: 11/04/18 06:56 Dose: 600 mg Influenza Virus Vaccine (Fluzone Quad [id number]) 60 mcg IM .ONCE ONE Stop: 11/06/18 10:01 Lorazepam (Ativan) 1 mg PO Q4H PRN PRN Reason: Symptoms of alcohol withdrawl Stop: 11/07/18 08:57 Last Admin: 11/03/18 15:29 Dose: 1 mg Lorazepam (Ativan) 1 mg PO Q6H [facility]; Taper Stop: 11/08/18 09:59 Last Admin: 11/05/18 04:41 Dose: 1 mg Methadone HCl (Methadose) 120 mg PO DAILY [facility] Methadone HCl (Methadone) 20 mg PO DAILY [facility] Mirtazapine (Remeron) 15 mg PO HS [facility] Last Admin: 11/04/18 22:13 Dose: 15 mg Multivitamins (Hexavitamin) 1 tab PO DAILY [facility] Last Admin: 11/04/18 09:10 Dose: 1 tab Ondansetron HCl (Zofran Inj) 4 mg IM Q6H PRN PRN Reason: Nausea/Vomiting Last Admin: 11/03/18 21:52 Dose: 4 mg Pantoprazole Sodium (Protonix Ec Tab) 40 mg PO DAILY [facility] Last Admin: 11/04/18 09:10 Dose: 40 mg Pneumococcal Polyvalent Vaccine (Pneumovax 23 Vaccine) 0.5 ml IM .ONCE ONE Stop: 11/06/18 10:01 Thiamine HCl (Vitamin B1 Tab) 100 mg PO DAILY [facility] Last Admin: 11/04/18 09:10 Dose: 100 mg Trazodone HCl (Desyrel) 200 mg PO HS PRN PRN Reason: Insomnia - Labs Labs: 11/03/18 04:25 11/03/18 04:25 - Constitutional Appears: Non-toxic, No Acute Distress - Head Exam Head Exam: ATRAUMATIC Additional comments: generalized erythema - Eye Exam Eye Exam: EOMI - ENT Exam ENT Exam: Mucous Membranes Moist - Respiratory Exam Respiratory Exam: Clear to Ausculation Bilateral, NORMAL BREATHING PATTERN. absent: Rales, Rhonchi, Wheezes Additional comments: productive cough with mucus - Cardiovascular Exam Cardiovascular Exam: REGULAR RHYTHM, +S1, +S2 - GI/Abdominal Exam GI & Abdominal Exam: Soft, Normal Bowel Sounds. absent: Tenderness - Extremities Exam Extremities Exam: Normal Capillary Refill. absent: Calf Tenderness Additional comments: bilateral 1+ pitting edema. bilateral LE erythema. no tenderness to palpation or calf squeeze today. Healed scar 2/2 to old foot surgery. - Back Exam Back Exam: absent: CVA tenderness (L), CVA tenderness (R) - Neurological Exam Neurological Exam: Alert, Awake, Oriented x3 - Psychiatric Exam Psychiatric exam: Agitated, Normal Affect - Skin Skin Exam: Dry, Intact, Normal Color, Warm Assessment and Plan - Assessment and Plan (Free Text) Assessment: 48 yo F with past medical history of asthma, depression, diverticulitis, bipolar disorder, opioid abuse (on methadone) and alcohol abuse, admitted to psychiatry unit for bipolar disorder and alcohol abuse. Medicine consulted for evaluation of b/l lower extremity edema. Plan: Lower Extremity Edema with Elevated D-dimer - follow up b/l LE dopplers. prelim read neg - Mildly elevated D-Dimer - 302 - R foot Xray - 11/03: NO acute fracture or dislocation of right foot. Moderate edema is seen at the forefoot/midfoot dorsal soft tissues. Prior post bunionectomy changes are suspected at the 1st metatarsal bone with advanced degenerative joint disease at the great toe and 1st metatarsophalangeal joint. Lesser degenerative changes are seen throughout the remaining digits. Oxygen desaturation in presence of elevated D-dimer with LE dopplers pending - CT angio ordered for SOB and O2 de-saturation when off NC while dopplers are pending. No evidence of PE as below: - --CT angiogram 11/04: No CT evidence of PE. No acute infiltrate, pleural or pericardial effusion. No pulmonary vascular congestion or cardiomegaly. Minimal post granulomatous change right middle and upper lobes with linear atelectasis or fibrosis bilateral lower lobe bases. Incidental prominent hepatic steatosis reiterated as demonstrated in prior abdomen pelvis CT . - patient failed 6 min pre- post- walk. Was 95% pre-walk, Desat down to 77% after 4.5 min walk. Patient will require supplemental O2 for the time being. - Pulm consulted: Dr. Krueger - help appreciated - d/c with home O2? Asthma - Duonebs 3ml INH q2h PRN - Ventolin 1 puff q2h PRN - Mucinex PO prn Bipolar Disorder Management per Primary Team - Continue home meds - Lexapro 10mg PO daily - Mirtazapine 15mg PO HS - Trazodone 50mg PO HS PRN Alcohol Use Disorder Management per Primary Team - CT abdomen and pelvis 11/03: Severe fatty liver - Abdominal US 11/03: Hepatomegal/hepatic steatosis. This confirms findings identified on concurrent CT of the abdomen and pelvis. Otherwise unremarkable study - Clonidine 0.1mg PO q4h PRN - Folic acid 1mg PO daily - Ativan 1mg PO q4h PRN - Multivitamin 1 tab PO daily - Thiamine 100mg PO daily - F/u echo r/o alcoholic cardiomyopathy: done, pending read - pro-BNP WNL Anxiety/ Depression Management per Primary Team - Lexapro 10mg PO daily - Mirtazapine 15mg PO HS - Trazodone 50mg PO HS PRN PPX GI: Protonix DVT: Heparin 5000 U SC Q8 d/w Dr. Phuong Gaming PGY-1 <Waldemar Mckeon - Last Filed: 11/12/18 02:05> Objective - Vital Signs/Intake and Output Vital Signs (last 24 hours): Temp Pulse Resp BP Pulse Ox 98.0 F 62 20 111/63 96 11/12/18 00:00 11/12/18 00:00 11/12/18 00:00 11/12/18 00:00 11/12/18 00:00 Intake and Output: 11/11/18 11/12/18 18:59 06:59 Intake Total 300 Balance 300 - Medications Medications: Current Medications Albuterol (Ventolin Hfa 90 Mcg/Actuation (8 G)) 1 puff INH RQ4 PRN PRN Reason: SOB Last Admin: 11/04/18 06:57 Dose: 1 puff Albuterol/Ipratropium (Duoneb 3 Mg/0.5 Mg (3 Ml) Ud) 3 ml INH RQ2 PRN PRN Reason: Severe SOB or wheezing Last Admin: 11/07/18 08:20 Dose: 3 ml Clonazepam (Klonopin) 1 mg PO BID [facility] Clonidine HCl (Catapres) 0.1 mg PO Q4H PRN PRN Reason: Symptoms of alcohol withdrawl Last Admin: 11/11/18 09:58 Dose: 0.1 mg Escitalopram Oxalate (Lexapro) 10 mg PO DAILY [facility] Last Admin: 11/11/18 09:37 Dose: 10 mg Fluticasone/Vilanterol (Breo Ellipta 100-25 Mcg Inh) 1 puff INH RQD [facility] Last Admin: 11/11/18 08:54 Dose: Not Given Folic Acid (Folic Acid) 1 mg PO DAILY [facility] Last Admin: 11/11/18 09:37 Dose: 1 mg Guaifenesin (Mucinex La) 600 mg PO BID [facility] Last Admin: 11/11/18 19:36 Dose: 600 mg Guaifenesin (Robitussin) 100 mg PO Q4H PRN PRN Reason: Cough Last Admin: 11/09/18 10:05 Dose: 100 mg Heparin Sodium (Porcine) (Heparin) 5,000 units SC Q8 [facility] Last Admin: 11/11/18 22:03 Dose: 5,000 units Ibuprofen (Motrin Tab) 600 mg PO Q6H PRN PRN Reason: Pain, moderate (4-7) Last Admin: 11/05/18 10:00 Dose: 600 mg Methadone HCl (Methadose) 120 mg PO DAILY [facility] Last Admin: 11/11/18 09:36 Dose: 120 mg Methadone HCl (Methadone) 20 mg PO DAILY [facility] Last Admin: 11/11/18 09:37 Dose: 20 mg Mirtazapine (Remeron) 30 mg PO HS [facility] Last Admin: 11/11/18 22:07 Dose: 30 mg Multivitamins (Hexavitamin) 1 tab PO DAILY [facility] Last Admin: 11/11/18 09:37 Dose: 1 tab Nicotine (Nicoderm Cq) 1 patch TD DAILY [facility] Last Admin: 11/11/18 09:59 Dose: 1 patch Ondansetron HCl (Zofran Inj) 4 mg IM Q6H PRN PRN Reason: Nausea/Vomiting Last Admin: 11/09/18 09:45 Dose: 4 mg Pantoprazole Sodium (Protonix Ec Tab) 40 mg PO DAILY [facility] Last Admin: 11/11/18 09:37 Dose: 40 mg Thiamine HCl (Vitamin B1 Tab) 100 mg PO DAILY [facility] Last Admin: 11/11/18 09:37 Dose: 100 mg Trazodone HCl (Desyrel) 200 mg PO HS PRN PRN Reason: Insomnia Last Admin: 11/11/18 22:07 Dose: 200 mg - Labs Labs: 11/11/18 07:40 11/11/18 07:40 Attending/Attestation - Attestation I have personally seen and examined this patient.: Yes I have fully participated in the care of the patient.: Yes I have reviewed all pertinent clinical information, including history, physical exam and plan: Yes Notes (Text): 11/12/18 02:05 This is a late entry. Care of this patient was gone over with resident Dr. Luh Gaming. Jose LawsonO
[2018-11-05 10:03] LABS: HEMOGLOBIN 14.2 g/dL (11.0-16.0); MEAN CORPUSCULAR HEMOGLOBIN 33.6 pg (27.0-31.0)
[2018-11-05 10:08] LABS: MEAN CORPUSCULAR HGB CONC 33.5 g/dL (33.0-37.0); MEAN PLATELET VOLUME 8.4 fL (7.2-11.7); RBC 4.21 Mil/uL (3.80-5.20); RED CELL DISTRIBUTION WIDTH 15.4 % (11.5-14.5); WHITE BLOOD COUNT 5.5 K/uL (4.8-10.8)
[2018-11-05 10:10] LABS: MEAN CELL VOLUME 100.3 fL (81.0-99.0)
[2018-11-05 10:27] LABS: ALB/GLOB RATIO 1.2 (1.0-2.1); ALBUMIN 3.3 g/dL (3.5-5.0); ALT/SGPT 118 U/L (9-52); AST/SGOT 205 U/L (14-36); BLOOD UREA NITROGEN 9 mg/dL (7-17); CALCIUM 7.3 mg/dl (8.6-10.4); GFR NON-AFRICAN AMERICAN > 60
[2018-11-05] MEDS ORDERED: Potassium Chloride 20 mEq ER Tab PO ONE (13:30)
[2018-11-05] MEDS: Magnesium Sulfate 1 gm in D5W 1 GM/100 ML BAG IVPB SCH ×4 (16:00→18:30)
--- NOTE | 2018-11-05 20:37 | CARD ---
APPROVED REPORT Date of service: 11/05/2018 EXAM: Two-dimensional and M-mode echocardiogram with Doppler and color Doppler. INDICATION COPD R/o alcoholic cardiomyopathy 2D DIMENSIONS IVSd0.7 (0.7-1.1cm)LVDd5.1 (3.9-5.9cm) PWd0.7 (0.7-1.1cm)LA Vdimer18 (18-58mL) LVDs3.5 (2.5-4.0cm)FS (%) 31.8 % LVEF (%)59.5 (>50%)LVEF (Tavares's)60.59 % IVC0.00 cm M-Mode DIMENSIONS RVDd2.91 (2.1-3.2cm)Left Atrium (MM)3.87 (2.5-4.0cm) IVSd0.64 (0.7-1.1cm)Aortic Root3.66 (2.2-3.7cm) LVDd5.08 (4.0-5.6cm)Aortic Cusp Exc.2.43 (1.5-2.0cm) PWd0.77 (0.7-1.1cm)FS (%) 35 % LVDs3.30 (2.0-3.8cm)TAPSE27.90 cm LVEF (%)64 (>50%) Mitral Valve MV E Igdpmuev77.5cm/sMV A Votxjzei09.3cm/sE/A ratio1.3 TDI Lateral E' Peak V12.35cm/sMedial E' Peak V7.71cm/sE/Lateral E'7.4 E/Medial E'11.9 Tricuspid Valve TR Peak [id number]/sTR Peak Gr.[id number] LEFT VENTRICLE The left ventricle is normal size. There is normal left ventricular wall thickness. The left ventricular function is normal. The left ventricular ejection fraction is within the normal range. 61% No regional wall motion abnormalities noted. The left ventricular diastolic function is normal. No left ventricle thrombus noted on this study. There is no ventricular septal defect visualized. There is no left ventricular aneurysm. There is no mass noted in the left ventricle. RIGHT VENTRICLE The right ventricle is normal size. There is normal right ventricular wall thickness. The right ventricular systolic function is normal. ATRIA The left atrium size is normal. The right atrium size is normal. The interatrial septum is intact with no evidence for an atrial septal defect. AORTIC VALVE The aortic valve is normal in structure and function. No aortic regurgitation is present. There is no aortic valvular stenosis. There is no aortic valvular vegetation. MITRAL VALVE The mitral valve is normal in structure and function. There is no evidence of mitral valve prolapse. There is no mitral valve stenosis. There is mild mitral valve regurgitation noted. TRICUSPID VALVE The tricuspid valve is normal in structure and function. There is mild tricuspid valve regurgitation noted. Estimated PA systolic pressure is 33 mm Hg. There is no tricuspid valve prolapse or vegetation. There is no tricuspid valve stenosis. PULMONIC VALVE The pulmonary valve is normal in structure and function. There is no pulmonic valvular regurgitation. There is no pulmonic valvular stenosis. GREAT VESSELS The aortic root is normal in size. The ascending aorta is normal in size. The pulmonary artery is normal. The IVC is normal in size and collapses ,50% with inspiration. PERICARDIAL EFFUSION The pericardium appears normal. There is no pleural effusion. <Conclusion> Normal LV systolic function. Normal Doppler.
[2018-11-06 07:34] LABS: HEMOGLOBIN 14.4 g/dL (11.0-16.0); MEAN CELL VOLUME 101.3 fL (81.0-99.0); MEAN CORPUSCULAR HEMOGLOBIN 33.5 pg (27.0-31.0); MEAN CORPUSCULAR HGB CONC 33.1 g/dL (33.0-37.0); MEAN PLATELET VOLUME 7.9 fL (7.2-11.7); RBC 4.3 Mil/uL (3.80-5.20); RED CELL DISTRIBUTION WIDTH 15.7 % (11.5-14.5); WHITE BLOOD COUNT 4.8 K/uL (4.8-10.8)
[2018-11-06 08:49] LABS: ALB/GLOB RATIO 1.3 (1.0-2.1); ALBUMIN 3.4 g/dL (3.5-5.0); ALT/SGPT 110 U/L (9-52); AST/SGOT 161 U/L (14-36); BLOOD UREA NITROGEN 6 mg/dL (7-17); CALCIUM 7.6 mg/dl (8.6-10.4); GFR NON-AFRICAN AMERICAN > 60
[2018-11-06] MEDS: Pantoprazole 40 mg EC Tab PO SCH (09:36)
[2018-11-06] MEDS: Multiple Vitamins Tab PO SCH (09:36)
[2018-11-06] MEDS: Methadone 40 mg Tab PO SCH (09:36)
[2018-11-06] MEDS: guaiFENesin 600 mg ER Tab PO SCH ×2 (09:37→17:41)
[2018-11-06] MEDS ORDERED: Pneumococcal 23-Valent Vaccine IM ONE (10:00)
[2018-11-06] MEDS ORDERED: Influenza Vaccine 60 MCG/0.5 ML SYR (3 yr & up) IM ONE (10:00)
--- NOTE | 2018-11-06 14:25 | CP.PCM.PN ---
<Pam Gaming Y - Last Filed: 11/06/18 15:40> Subjective - Date & Time of Evaluation Date of Evaluation: 11/06/18 Time of Evaluation: 09:45 - Subjective Subjective: PGY-1 Medicine Progress Note for Dr. Phuong Mckeon Patient was seen and examined today sitting up at bedside in no acute distress. Nurse reports no overnight events. Patient has no new complaints. Continues to want NC for supplemental O2 since she becomes SOB within minutes without it. Denies chest pain, n/v/c/d, abdominal pain, headache. Requested permission to go outside to smoke, and seemed amendable to nicotine patch instead. Objective - Vital Signs/Intake and Output Vital Signs (last 24 hours): Temp Pulse Resp BP Pulse Ox 98.6 F 68 20 134/77 95 11/06/18 08:00 11/06/18 08:00 11/06/18 08:00 11/06/18 08:00 11/06/18 08:00 Intake and Output: 11/06/18 11/06/18 06:59 18:59 Intake Total 600 Balance 600 - Medications Medications: Current Medications Albuterol (Ventolin Hfa 90 Mcg/Actuation (8 G)) 1 puff INH RQ4 PRN PRN Reason: SOB Last Admin: 11/04/18 06:57 Dose: 1 puff Albuterol/Ipratropium (Duoneb 3 Mg/0.5 Mg (3 Ml) Ud) 3 ml INH RQ2 PRN PRN Reason: Severe SOB or wheezing Clonidine HCl (Catapres) 0.1 mg PO Q4H PRN PRN Reason: Symptoms of alcohol withdrawl Escitalopram Oxalate (Lexapro) 10 mg PO DAILY [facility] Last Admin: 11/06/18 09:36 Dose: 10 mg Fluticasone/Vilanterol (Breo Ellipta 100-25 Mcg Inh) 1 puff INH RQD [facility] Folic Acid (Folic Acid) 1 mg PO DAILY [facility] Last Admin: 11/06/18 09:37 Dose: 1 mg Guaifenesin (Mucinex La) 600 mg PO BID [facility] Last Admin: 11/06/18 09:37 Dose: 600 mg Heparin Sodium (Porcine) (Heparin) 5,000 units SC Q8 [facility] Last Admin: 11/06/18 13:35 Dose: 5,000 units Ibuprofen (Motrin Tab) 600 mg PO Q6H PRN PRN Reason: Pain, moderate (4-7) Last Admin: 11/05/18 10:00 Dose: 600 mg Lorazepam (Ativan) 1 mg PO Q4H PRN PRN Reason: Symptoms of alcohol withdrawl Stop: 11/07/18 08:57 Last Admin: 11/03/18 15:29 Dose: 1 mg Lorazepam (Ativan) 1 mg PO Q12H [facility]; Taper Stop: 11/08/18 09:59 Last Admin: 11/06/18 09:37 Dose: 1 mg Methadone HCl (Methadose) 120 mg PO DAILY [facility] Last Admin: 11/06/18 09:36 Dose: 120 mg Methadone HCl (Methadone) 20 mg PO DAILY [facility] Last Admin: 11/06/18 09:37 Dose: 20 mg Mirtazapine (Remeron) 15 mg PO HS [facility] Last Admin: 11/05/18 21:46 Dose: 15 mg Multivitamins (Hexavitamin) 1 tab PO DAILY [facility] Last Admin: 11/06/18 09:36 Dose: 1 tab Nicotine (Nicoderm Cq) 1 patch TD DAILY [facility] Last Admin: 11/06/18 10:21 Dose: 1 patch Ondansetron HCl (Zofran Inj) 4 mg IVP Q6H PRN PRN Reason: Nausea/Vomiting Pantoprazole Sodium (Protonix Ec Tab) 40 mg PO DAILY [facility] Last Admin: 11/06/18 09:36 Dose: 40 mg Thiamine HCl (Vitamin B1 Tab) 100 mg PO DAILY [facility] Last Admin: 11/06/18 09:37 Dose: 100 mg Trazodone HCl (Desyrel) 200 mg PO HS PRN PRN Reason: Insomnia - Labs Labs: 11/06/18 07:25 11/06/18 07:25 - Constitutional Appears: Non-toxic, No Acute Distress - Head Exam Head Exam: ATRAUMATIC, NORMOCEPHALIC - Eye Exam Eye Exam: EOMI - ENT Exam ENT Exam: Mucous Membranes Moist - Respiratory Exam Respiratory Exam: Clear to Ausculation Bilateral, NORMAL BREATHING PATTERN. absent: Rales, Rhonchi, Wheezes - Cardiovascular Exam Cardiovascular Exam: REGULAR RHYTHM, +S1, +S2 - GI/Abdominal Exam GI & Abdominal Exam: Soft, Normal Bowel Sounds. absent: Tenderness - Extremities Exam Extremities Exam: Normal Capillary Refill. absent: Calf Tenderness Additional comments: bilateral LE erythema. no tenderness to palpation or calf squeeze today. Healed scar 2/2 to old foot surgery. - Neurological Exam Neurological Exam: Alert, Awake, Normal Gait, Oriented x3 - Psychiatric Exam Psychiatric exam: Anxious - Skin Skin Exam: Dry, Intact, Normal Color, Warm Assessment and Plan - Assessment and Plan (Free Text) Assessment: 48 yo F with past medical history of asthma, depression, diverticulitis, bipolar disorder, opioid abuse (on methadone) and alcohol abuse, admitted to psychiatry unit for bipolar disorder and alcohol abuse. Medicine consulted for evaluation of b/l lower extremity edema, which has now resolved. She is still having SOB and desaturating when not on supplemental O2. Plan: Oxygen desaturation with elevated d-dimer likely bilateral pulmonary fibrosis - patient snorted heroin for years prior to quitting. continues to smoke tobacco daily - CTA (11/04): neg for PE - patient failed 6 min pre- post- walk on 11/05. Was 95% pre-walk, Desat down to 77% after 4.5 min walk. - patient again failed on 11/06. Was taken off oxygen and interviewed. Desat down to 76% prior to walk. - Patient will require supplemental O2 for the time being. - Pulm consulted: Dr. Pond - recs appreciated - agree to d/c with home O2 LE Edema with elevated d-dimer - resolved - d-dimer: 302 - LE Doppler (11/03): neg for DVT - XR R Foot (11/03): No acute Fx or dislocation Asthma - Duonebs 3ml INH q2h PRN - Ventolin 1 puff q4h PRN - Mucinex 600mg po bid - Breo Ellipta 1 puff daily Mood Disorder: Bipolar Depression with Anxiety - management per Psych - Lexapro 10mg PO daily - Mirtazapine 15mg PO HS - Trazodone 200mg PO HS PRN Alcohol Use Disorder - management per Psych - CT A/P (11/03): severe fatty liver - US Abd (11/03): hepatomegaly/hepatic steatosis - ECHO (11/03): LVEF: 59.5% - ProBNP 37.7 - Clonidine 0.1mg PO q4h PRN - Folic acid 1mg PO daily - Ativan 1mg PO q12 [facility] with q4h PRN - Multivitamin 1 tab PO daily - Thiamine 100mg PO daily - Zofran 1mg IVP q6 prn Opioid Use Disorder - management per Psych - Methadone 140mg po daily Nicotine Use Disorder - Nicotine patch 14mg/day td daily PPX - DVT: Heparin 5000 U SC Q8 - GI: Protonix 40mg po daily - Diet: Regular - Ibuprofen 600mg po q6 prn d/w Dr. Phuong Gaming PGY-1 <Waldemar Mckeon - Last Filed: 11/12/18 02:04> Objective - Vital Signs/Intake and Output Vital Signs (last 24 hours): Temp Pulse Resp BP Pulse Ox 98.0 F 62 20 111/63 96 11/12/18 00:00 11/12/18 00:00 11/12/18 00:00 11/12/18 00:00 11/12/18 00:00 Intake and Output: 11/11/18 11/12/18 18:59 06:59 Intake Total 300 Balance 300 - Medications Medications: Current Medications Albuterol (Ventolin Hfa 90 Mcg/Actuation (8 G)) 1 puff INH RQ4 PRN PRN Reason: SOB Last Admin: 11/04/18 06:57 Dose: 1 puff Albuterol/Ipratropium (Duoneb 3 Mg/0.5 Mg (3 Ml) Ud) 3 ml INH RQ2 PRN PRN Reason: Severe SOB or wheezing Last Admin: 11/07/18 08:20 Dose: 3 ml Clonazepam (Klonopin) 1 mg PO BID [facility] Clonidine HCl (Catapres) 0.1 mg PO Q4H PRN PRN Reason: Symptoms of alcohol withdrawl Last Admin: 11/11/18 09:58 Dose: 0.1 mg Escitalopram Oxalate (Lexapro) 10 mg PO DAILY [facility] Last Admin: 11/11/18 09:37 Dose: 10 mg Fluticasone/Vilanterol (Breo Ellipta 100-25 Mcg Inh) 1 puff INH RQD [facility] Last Admin: 11/11/18 08:54 Dose: Not Given Folic Acid (Folic Acid) 1 mg PO DAILY [facility] Last Admin: 11/11/18 09:37 Dose: 1 mg Guaifenesin (Mucinex La) 600 mg PO BID [facility] Last Admin: 11/11/18 19:36 Dose: 600 mg Guaifenesin (Robitussin) 100 mg PO Q4H PRN PRN Reason: Cough Last Admin: 11/09/18 10:05 Dose: 100 mg Heparin Sodium (Porcine) (Heparin) 5,000 units SC Q8 [facility] Last Admin: 11/11/18 22:03 Dose: 5,000 units Ibuprofen (Motrin Tab) 600 mg PO Q6H PRN PRN Reason: Pain, moderate (4-7) Last Admin: 11/05/18 10:00 Dose: 600 mg Methadone HCl (Methadose) 120 mg PO DAILY [facility] Last Admin: 11/11/18 09:36 Dose: 120 mg Methadone HCl (Methadone) 20 mg PO DAILY [facility] Last Admin: 11/11/18 09:37 Dose: 20 mg Mirtazapine (Remeron) 30 mg PO HS [facility] Last Admin: 11/11/18 22:07 Dose: 30 mg Multivitamins (Hexavitamin) 1 tab PO DAILY [facility] Last Admin: 11/11/18 09:37 Dose: 1 tab Nicotine (Nicoderm Cq) 1 patch TD DAILY [facility] Last Admin: 11/11/18 09:59 Dose: 1 patch Ondansetron HCl (Zofran Inj) 4 mg IM Q6H PRN PRN Reason: Nausea/Vomiting Last Admin: 11/09/18 09:45 Dose: 4 mg Pantoprazole Sodium (Protonix Ec Tab) 40 mg PO DAILY [facility] Last Admin: 11/11/18 09:37 Dose: 40 mg Thiamine HCl (Vitamin B1 Tab) 100 mg PO DAILY [facility] Last Admin: 11/11/18 09:37 Dose: 100 mg Trazodone HCl (Desyrel) 200 mg PO HS PRN PRN Reason: Insomnia Last Admin: 11/11/18 22:07 Dose: 200 mg - Labs Labs: 11/11/18 07:40 11/11/18 07:40 Attending/Attestation - Attestation I have personally seen and examined this patient.: Yes I have fully participated in the care of the patient.: Yes I have reviewed all pertinent clinical information, including history, physical exam and plan: Yes Notes (Text): 11/12/18 02:04 This is a late entry. Care of this patient was gone over with resident Dr. Luh Gaming. Waldemar Mckeon D.O
--- NOTE | 2018-11-06 14:35 | VASCLAB ---
Date of service: 11/05/2018 PROCEDURE: Lower Extremity Venous Duplex Exam. HISTORY: b/l leg swelling PRIORS: None. TECHNIQUE: Bilateral common femoral, femoral, popliteal and posterior tibial, peroneal and great saphenous veins were evaluated. Flow was assessed with color Doppler, compressibility, assessment of phasic flow and augmentation response. Report prepared by Kalyan Gardiner, BS, RVT FINDINGS: RIGHT: 1. Common Femoral Vein: 1.1. Compressibility - Fully compressible: Thrombus - None : Flow - Phasic: Augmentation -Normal: Reflux - None. 2. Femoral Vein: 2.1. Compressibility - Fully compressible: Thrombus - None : Flow - Phasic: Augmentation -Normal: Reflux - None. 3. Popliteal Vein: 3.1. Compressibility - Fully compressible: Thrombus - None : Flow - Phasic: Augmentation -Normal: Reflux - None. 4. Posterior Tibial Vein: 4.1. Compressibility - Fully compressible: Thrombus - None: Flow - Phasic: Augmentation -Normal: Reflux - None. 5. Peroneal Vein: 5.1. Compressibility - Fully compressible: Thrombus - None: Flow - Phasic: Augmentation -Normal: Reflux - None. 6. Great Saphenous Vein: 6.1. Compressibility - Fully compressible: Thrombus - None: Flow - Phasic: Augmentation - Normal: Reflux - None. LEFT: 1. Common Femoral Vein: 1.1. Compressibility - Fully compressible: Thrombus - None: Flow - Phasic: Augmentation -Normal: Reflux - None. 2. Femoral Vein: 2.1. Compressibility - Fully compressible: Thrombus - None: Flow - Phasic: Augmentation -Normal: Reflux - None. 3. Popliteal Vein: 3.1. Compressibility - Fully compressible: Thrombus - None : Flow - Phasic: Augmentation -Normal: Reflux - None. 4. Posterior Tibial Vein: 4.1. Compressibility - Fully compressible: Thrombus - None: Flow - Phasic: Augmentation -Normal: Reflux - None. 5. Peroneal Vein: 5.1. Compressibility - Fully compressible: Thrombus - None: Flow - Phasic: Augmentation -Normal: Reflux - None. 6. Great Saphenous Vein: 6.1. Compressibility - Fully compressible: Thrombus - None: Flow - Phasic: Augmentation - Normal: Reflux - None. OTHER FINDINGS: Right: None significant. Left: None significant. IMPRESSION: Right: No evidence of deep or superficial vein thrombosis of the right lower extremity. Normal valve function noted of the right side. Left: No evidence of deep or superficial vein thrombosis of the left lower extremity. Normal valve function noted of the left side.
[2018-11-06] MEDS: Fluticasone-Vilanterol 100/25mcg Diskus INH SCH (21:47)
--- NOTE | 2018-11-06 23:04 | CP.PCM.CON ---
History of Present Illness - History of Present Illness History of Present Illness: Pulmonary Consult, Covering Dr Damon The patient was Seen/interviewed and examined by me at the bedside, Medical records reviewed and Management issues were discussed and formulated with the house staff. 48 year old female with PMH asthma, bipolar, anxiety, depression, GERD, diverticulitis. Initially presented to ED with epigastric pain and vomiting x2 weeks and daily alcohol use x2 months, admitted to psychiatric inpatient for bipolar and alcohol abuse. Patient had shortness of breath and lower leg swelling that was evaluated by medicine team. Swelling resolved, SOB and desaturations continue. Patient states that she has had cough for the last month with some yellow, green, and white sputum. No hemoptysis. No fever, chills, chest pain, palpitations, syncope. PSH- endoscopy 2 years ago Medications- trazodone 200mg, clonazepam 1mg bid, ziprasidone 80mg bid, pantoprazole 20mg, ibuprofen 600 tid, flovent 0.22mg IH dialy, Lexapro 10mg daily, cyclobenzaprine 10mg po tid Allergies- ciprofloxacin and seafood- anaphylaxis social- smoked 1/2ppd [id number], history of alcohol, heroin, marijuana, and pcp use. ROS- positive for sweating (day and night, attributed to menopause), muscle aches, fatigue, dysphagia (on liquid diet) Patient sitting on bed, no acute distress breathing comfortably on 2LPM NC lungs CTA bilaterally, no wheeze, rales, or rhonchi 11/06 WBC 4.8, Cl 95, CO2 40 11/03 d-dimer 302 11/03 UDS positive for methadone, alcohol quantitative 212 11/[address] angiogram- no PE, no acute infiltrates,minimal post granulomatous changes in right middle and upper lobes with trace atelectasis or fibrosis Pulmonary fibrosis Asthma Continue supplemental oxygen Continue nebulizer Continue ventolin Continue medical management Past Patient History - Past Medical History & Family History Past Medical History?: Yes - Past Social History Smoking Status: Heavy Smoker > 10 Cigarettes Daily - CARDIAC Hx Cardiac Disorders: No Hx Hypertension: No - PULMONARY Hx Tuberculosis: No - NEUROLOGICAL HX Cerebrovascular Accident: No Hx Seizures: No - HEENT Hx HEENT Problems: No - RENAL Hx Chronic Kidney Disease: No - ENDOCRINE/METABOLIC Hx Endocrine Disorders: No - HEMATOLOGICAL/ONCOLOGICAL Hx Cancer: No Hx Human Immunodeficiency Virus (HIV): No - INTEGUMENTARY Hx Dermatological Problems: No - MUSCULOSKELETAL/RHEUMATOLOGICAL Hx Falls: No - GASTROINTESTINAL Hx Diverticulitis: Yes - GENITOURINARY/GYNECOLOGICAL Hx Sexually Transmitted Disorders: No - PSYCHIATRIC Hx Substance Use: No - SURGICAL HISTORY Hx Appendectomy: Yes - ANESTHESIA Hx Anesthesia: Yes Hx Anesthesia Reactions: No Hx Malignant Hyperthermia: No Meds Home Medications: Home Medication List Medication Instructions Recorded Confirmed Type RX: Escitalopram [Lexapro] 10 mg PO DAILY #30 tab 11/07/18 Rx RX: Mirtazapine [Remeron] 30 mg PO HS #30 tab 11/07/18 Rx RX: traZODone [Desyrel] 100 mg PO HS PRN #60 tab 11/07/18 Rx Allergies/Adverse Reactions: Allergies Allergy/AdvReac Type Severity Reaction Status Date / Time ciprofloxacin Allergy Verified 11/03/18 03:14 - Medications Medications: Current Medications Albuterol (Ventolin Hfa 90 Mcg/Actuation (8 G)) 1 puff INH RQ4 PRN PRN Reason: SOB Last Admin: 11/04/18 06:57 Dose: 1 puff Albuterol/Ipratropium (Duoneb 3 Mg/0.5 Mg (3 Ml) Ud) 3 ml INH RQ2 PRN PRN Reason: Severe SOB or wheezing Clonidine HCl (Catapres) 0.1 mg PO Q4H PRN PRN Reason: Symptoms of alcohol withdrawl Escitalopram Oxalate (Lexapro) 10 mg PO DAILY [facility] Last Admin: 11/06/18 09:36 Dose: 10 mg Fluticasone/Vilanterol (Breo Ellipta 100-25 Mcg Inh) 1 puff INH RQD [facility] Last Admin: 11/06/18 21:47 Dose: Not Given Folic Acid (Folic Acid) 1 mg PO DAILY [facility] Last Admin: 11/06/18 09:37 Dose: 1 mg Guaifenesin (Mucinex La) 600 mg PO BID [facility] Last Admin: 11/06/18 17:41 Dose: 600 mg Heparin Sodium (Porcine) (Heparin) 5,000 units SC Q8 [facility] Last Admin: 11/06/18 21:34 Dose: 5,000 units Ibuprofen (Motrin Tab) 600 mg PO Q6H PRN PRN Reason: Pain, moderate (4-7) Last Admin: 11/05/18 10:00 Dose: 600 mg Lorazepam (Ativan) 1 mg PO Q4H PRN PRN Reason: Symptoms of alcohol withdrawl Stop: 11/07/18 08:57 Last Admin: 11/06/18 17:41 Dose: 1 mg Lorazepam (Ativan) 1 mg PO Q12H [facility]; Taper Stop: 11/08/18 09:59 Last Admin: 11/06/18 21:39 Dose: 1 mg Methadone HCl (Methadose) 120 mg PO DAILY [facility] Last Admin: 11/06/18 09:36 Dose: 120 mg Methadone HCl (Methadone) 20 mg PO DAILY [facility] Last Admin: 11/06/18 09:37 Dose: 20 mg Mirtazapine (Remeron) 15 mg PO HS [facility] Last Admin: 11/06/18 21:33 Dose: 15 mg Multivitamins (Hexavitamin) 1 tab PO DAILY [facility] Last Admin: 11/06/18 09:36 Dose: 1 tab Nicotine (Nicoderm Cq) 1 patch TD DAILY [facility] Last Admin: 11/06/18 10:21 Dose: 1 patch Ondansetron HCl (Zofran Inj) 4 mg IVP Q6H PRN PRN Reason: Nausea/Vomiting Pantoprazole Sodium (Protonix Ec Tab) 40 mg PO DAILY [facility] Last Admin: 11/06/18 09:36 Dose: 40 mg Thiamine HCl (Vitamin B1 Tab) 100 mg PO DAILY [facility] Last Admin: 11/06/18 09:37 Dose: 100 mg Trazodone HCl (Desyrel) 200 mg PO HS PRN PRN Reason: Insomnia Last Admin: 11/06/18 21:32 Dose: 200 mg Physical Exam - Constitutional Appears: Well, No Acute Distress - Head Exam Head Exam: ATRAUMATIC, NORMAL INSPECTION - Eye Exam Eye Exam: absent: Conjunctival injection - ENT Exam ENT Exam: Mucous Membranes Moist - Neck Exam Neck exam: Positive for: Full Rom - Respiratory Exam Respiratory Exam: Prolonged Expiratory Phase, Wheezes. absent: Chest Wall Ten derness, Clear to Auscultation Bilateral, Rhonchi, Respiratory Distress - Cardiovascular Exam Cardiovascular Exam: REGULAR RHYTHM Results - Vital Signs Recent Vital Signs: Last Vital Signs Temp 98.6 F 11/06/18 17:27 Pulse 75 11/06/18 17:27 Resp 20 11/06/18 17:27 BP 124/83 11/06/18 17:27 Pulse Ox 94 L 12/27/18 17:27 - Labs Result Diagrams: 11/11/18 07:40 11/11/18 07:40 Labs: Laboratory Results - last 24 hr 11/06/18 11/06/18 07:25 07:25 WBC 4.8 RBC 4.30 Hgb 14.4 Hct 43.6 MCV 101.3 H MCH 33.5 H MCHC 33.1 RDW 15.7 H Plt Count 133 MPV 7.9 Sodium 139 Potassium 3.8 Chloride 95 L Carbon Dioxide 40 H* Anion Gap 8 L BUN 6 L Creatinine 0.5 L Est GFR ( Amer) > 60 Est GFR (Non-Af Amer) > 60 Random Glucose 91 D Calcium 7.6 L Phosphorus 2.7 Magnesium 2.0 Total Bilirubin 0.6 AST 161 H D ALT 110 H Alkaline Phosphatase 124 Total Protein 6.0 L Albumin 3.4 L Globulin 2.7 Albumin/Globulin Ratio 1.3
--- NOTE | 2018-11-07 00:10 | PCM.PYCHPN ---
Psychiatric Progress Note - Psychiatric Progress Note Patient seen today, length of contact: 15 min Patient Chief Complaint: I m feeling better.' Problems Identified/Issues Discussed: Patient seen and evaluated, chart reviewed and discussed the staff. Pt was seen on a medical floor. Patient reports improvement in the depressed mood and improvement in the feelings of hopelessness and helplessness. She reports improvement in the withdrawal symptoms. She denies any auditory hallucination or any paranoia. She is taking medication but denies any side effects. Supportive therapy was given Medication Change: Yes Medical Record Reviewed: Yes Mental Status Examination - Cognitive Function Orientation: Person, Place, Situation, Time Memory: Intact Attention: WNL Concentration: WNL Association: WNL Fund of Knowledge: WNL - Mood Mood: Anxious - Affect Affect: Constricted, Depressed - Speech Speech: Soft - Formal Thought Process Formal Thought Process: No Impairment - Suicidal Ideation Suicidal Ideation: No - Homicidal Ideation Homicidal Ideation: No Goal/Treatment Plan - Goal/Treatment Plan Need for Continued Stay: Other Progress Toward Problem(s) and Goals/Treatment Plan: Major depressive disorder recurrent severe without psychotic features Alcohol use disorder severe Alcohol withdrawal Opioid use disorder severe on Agonist therapy CBT Psychoeducation Supportive therapy and group therapy Trazodone 50 mg p.o. nightly Hydroxyzine 25 mg p.o. every 6 hours as needed Lexapro 10 mg p.o. daily Remeron 15 mg p.o. nightly Trazodone 200 mg p.o. nightly Ativan taper Methadone 140 mg p.o. daily Pt psychiatrically stable and cleared - Smoking Cessation Smoking Cessation Initiated: No
[2018-11-07 07:19] LABS: HEMOGLOBIN 14.7 g/dL (11.0-16.0); MEAN CELL VOLUME 99.9 fL (81.0-99.0); MEAN CORPUSCULAR HEMOGLOBIN 33.6 pg (27.0-31.0); MEAN CORPUSCULAR HGB CONC 33.7 g/dL (33.0-37.0); MEAN PLATELET VOLUME 7.5 fL (7.2-11.7); RBC 4.37 Mil/uL (3.80-5.20); RED CELL DISTRIBUTION WIDTH 15.2 % (11.5-14.5); WHITE BLOOD COUNT 4.8 K/uL (4.8-10.8)
[2018-11-07] MEDS: Fluticasone-Vilanterol 100/25mcg Diskus INH SCH (08:20)
[2018-11-07 08:32] LABS: ALB/GLOB RATIO 1.2 (1.0-2.1); ALBUMIN 3.5 g/dL (3.5-5.0); ALT/SGPT 122 U/L (9-52); AST/SGOT 190 U/L (14-36); BLOOD UREA NITROGEN 5 mg/dL (7-17); CALCIUM 7.8 mg/dl (8.6-10.4); GFR NON-AFRICAN AMERICAN > 60
[2018-11-07] MEDS ORDERED: Potassium Chloride 20 mEq ER Tab PO ONE (08:52)
[2018-11-07] MEDS: Methadone 40 mg Tab PO SCH (09:14)
[2018-11-07] MEDS: Multiple Vitamins Tab PO SCH (09:15)
[2018-11-07] MEDS: guaiFENesin 600 mg ER Tab PO SCH ×2 (09:15→17:26)
[2018-11-07] MEDS: Pantoprazole 40 mg EC Tab PO SCH (09:15)
--- NOTE | 2018-11-07 18:20 | CP.PCM.PN ---
<Pam Gaming Y - Last Filed: 11/07/18 18:03> Subjective - Date & Time of Evaluation Date of Evaluation: 11/07/18 Time of Evaluation: 10:30 - Subjective Subjective: PGY-1 Medicine Progress Note for Dr. Phuong Mckeon Patient was seen and examined today at bedside in no acute distress. Patient did vomit after co-administration of Methadone and K-dur. She was given another dose of Methadone to supplement the whole pill that was noted in the vomitus. Patient was also threatening to AMA but decided to stay after explaining her need for home O2 as she immediately desaturates upon exertion or prolonged talking. It was noted that she is going through withdrawals and she admits that it may be a cause for her anxiety to go home. Denies chest pain, shortness of breath, abdominal pain, c/d, fever, chills. Objective - Vital Signs/Intake and Output Vital Signs (last 24 hours): Temp Pulse Resp BP Pulse Ox 98.2 F 66 20 120/66 94 L 11/07/18 16:00 11/07/18 16:00 11/07/18 16:00 11/07/18 16:00 11/07/18 16:00 Intake and Output: 11/07/18 11/07/18 06:59 18:59 Intake Total 300 Balance 300 - Medications Medications: Current Medications Albuterol (Ventolin Hfa 90 Mcg/Actuation (8 G)) 1 puff INH RQ4 PRN PRN Reason: SOB Last Admin: 11/04/18 06:57 Dose: 1 puff Albuterol/Ipratropium (Duoneb 3 Mg/0.5 Mg (3 Ml) Ud) 3 ml INH RQ2 PRN PRN Reason: Severe SOB or wheezing Last Admin: 11/07/18 08:20 Dose: 3 ml Clonidine HCl (Catapres) 0.1 mg PO Q4H PRN PRN Reason: Symptoms of alcohol withdrawl Escitalopram Oxalate (Lexapro) 10 mg PO DAILY [facility] Last Admin: 11/07/18 09:15 Dose: 10 mg Fluticasone/Vilanterol (Breo Ellipta 100-25 Mcg Inh) 1 puff INH RQD [facility] Last Admin: 11/07/18 08:20 Dose: 1 puff Folic Acid (Folic Acid) 1 mg PO DAILY [facility] Last Admin: 11/07/18 09:15 Dose: 1 mg Guaifenesin (Mucinex La) 600 mg PO BID [facility] Last Admin: 11/07/18 17:26 Dose: 600 mg Heparin Sodium (Porcine) (Heparin) 5,000 units SC Q8 [facility] Last Admin: 11/07/18 13:10 Dose: 5,000 units Ibuprofen (Motrin Tab) 600 mg PO Q6H PRN PRN Reason: Pain, moderate (4-7) Last Admin: 11/05/18 10:00 Dose: 600 mg Lorazepam (Ativan) 1 mg PO Q24H [facility]; Taper Stop: 11/08/18 09:59 Last Admin: 11/07/18 10:06 Dose: 1 mg Methadone HCl (Methadose) 120 mg PO DAILY [facility] Last Admin: 11/07/18 09:14 Dose: 120 mg Methadone HCl (Methadone) 20 mg PO DAILY [facility] Last Admin: 11/07/18 09:15 Dose: 20 mg Mirtazapine (Remeron) 30 mg PO HS [facility] Multivitamins (Hexavitamin) 1 tab PO DAILY [facility] Last Admin: 11/07/18 09:15 Dose: 1 tab Nicotine (Nicoderm Cq) 1 patch TD DAILY [facility] Last Admin: 11/07/18 09:14 Dose: 1 patch Ondansetron HCl (Zofran Inj) 4 mg IVP Q6H PRN PRN Reason: Nausea/Vomiting Pantoprazole Sodium (Protonix Ec Tab) 40 mg PO DAILY [facility] Last Admin: 11/07/18 09:15 Dose: 40 mg Thiamine HCl (Vitamin B1 Tab) 100 mg PO DAILY [facility] Last Admin: 11/07/18 09:14 Dose: 100 mg Trazodone HCl (Desyrel) 200 mg PO HS PRN PRN Reason: Insomnia Last Admin: 11/06/18 21:32 Dose: 200 mg - Labs Labs: 11/07/18 07:10 11/07/18 07:10 - Constitutional Appears: Non-toxic, No Acute Distress - Head Exam Head Exam: ATRAUMATIC, NORMOCEPHALIC - Eye Exam Eye Exam: EOMI - ENT Exam ENT Exam: Mucous Membranes Moist - Respiratory Exam Respiratory Exam: Clear to Ausculation Bilateral, NORMAL BREATHING PATTERN. absent: Rales, Rhonchi, Wheezes Additional comments: 2L O2 via NC - Cardiovascular Exam Cardiovascular Exam: REGULAR RHYTHM, +S1, +S2 - GI/Abdominal Exam GI & Abdominal Exam: Soft, Normal Bowel Sounds. absent: Tenderness - Extremities Exam Extremities Exam: Normal Capillary Refill. absent: Calf Tenderness, Pedal Edema Additional comments: bilateral LE erythema. no tenderness to palpation or calf squeeze today. Healed scar 2/2 to old foot surgery. - Neurological Exam Neurological Exam: Alert, Awake, Normal Gait, Oriented x3 - Psychiatric Exam Psychiatric exam: Anxious - Skin Skin Exam: Dry, Intact, Normal Color, Warm Additional comments: generalized rubor Assessment and Plan - Assessment and Plan (Free Text) Assessment: 48 yo F with past medical history of asthma, depression, diverticulitis, bipolar disorder, opioid abuse (on methadone) and alcohol abuse, admitted to psychiatry unit for bipolar disorder and alcohol abuse. Medicine consulted for evaluation of b/l lower extremity edema, which has now resolved. She is still having SOB and desaturating when not on supplemental O2. Plan: Oxygen desaturation with elevated d-dimer likely bilateral pulmonary fibrosis - patient snorted heroin for years prior to quitting. continues to smoke tobacco daily - CTA (11/04): neg for PE - patient failed 6 min pre- post- walk on 11/05. Was 95% pre-walk, Desat down to 77% after 4.5 min walk. - patient again failed on 11/06. Was taken off oxygen and interviewed. Desat d own to 76% prior to walk. - Pulm consulted: Dr. Pond - recs appreciated - agree to d/c with home O2 LE Edema with elevated d-dimer - resolved - d-dimer: 302 - LE Doppler (11/03): neg for DVT - XR R Foot (11/03): No acute Fx or dislocation Asthma - Duonebs 3ml INH q2h PRN - Ventolin 1 puff q4h PRN - Mucinex 600mg po bid - Breo Ellipta 1 puff daily Mood Disorder: Bipolar Depression with Anxiety - management per Psych - Lexapro 10mg PO daily - Mirtazapine 15mg PO HS - Trazodone 200mg PO HS PRN Alcohol Use Disorder - management per Psych - CT A/P (11/03): severe fatty liver - US Abd (11/03): hepatomegaly/hepatic steatosis - ECHO (11/03): LVEF: 59.5% - ProBNP 37.7 - Clonidine 0.1mg PO q4h PRN - Folic acid 1mg PO daily - Ativan 1mg PO q12 [facility] - Multivitamin 1 tab PO daily - Thiamine 100mg PO daily - Zofran 1mg IVP q6 prn Opioid Use Disorder - management per Psych - Methadone 140mg po daily Nicotine Use Disorder - Nicotine patch 14mg/day td daily PPX - DVT: Heparin 5000 U SC Q8 - GI: Protonix 40mg po daily - Diet: Regular - Ibuprofen 600mg po q6 prn Dispo: Patient will require home O2 upon discharge. SW/CM is on the case. Patient is clear for discharge per Psych and Pulm (once obtaining home O2). d/w Dr. Phuong Gaming PGY-1 <Waldemar Mckeon - Last Filed: 11/12/18 02:04> Objective - Vital Signs/Intake and Output Vital Signs (last 24 hours): Temp Pulse Resp BP Pulse Ox 98.0 F 62 20 111/63 96 11/12/18 00:00 11/12/18 00:00 11/12/18 00:00 11/12/18 00:00 11/12/18 00:00 Intake and Output: 11/11/18 11/12/18 18:59 06:59 Intake Total 300 Balance 300 - Medications Medications: Current Medications Albuterol (Ventolin Hfa 90 Mcg/Actuation (8 G)) 1 puff INH RQ4 PRN PRN Reason: SOB Last Admin: 11/04/18 06:57 Dose: 1 puff Albuterol/Ipratropium (Duoneb 3 Mg/0.5 Mg (3 Ml) Ud) 3 ml INH RQ2 PRN PRN Reason: Severe SOB or wheezing Last Admin: 11/07/18 08:20 Dose: 3 ml Clonazepam (Klonopin) 1 mg PO BID [facility] Clonidine HCl (Catapres) 0.1 mg PO Q4H PRN PRN Reason: Symptoms of alcohol withdrawl Last Admin: 11/11/18 09:58 Dose: 0.1 mg Escitalopram Oxalate (Lexapro) 10 mg PO DAILY [facility] Last Admin: 11/11/18 09:37 Dose: 10 mg Fluticasone/Vilanterol (Breo Ellipta 100-25 Mcg Inh) 1 puff INH RQD [facility] Last Admin: 11/11/18 08:54 Dose: Not Given Folic Acid (Folic Acid) 1 mg PO DAILY [facility] Last Admin: 11/11/18 09:37 Dose: 1 mg Guaifenesin (Mucinex La) 600 mg PO BID [facility] Last Admin: 11/11/18 19:36 Dose: 600 mg Guaifenesin (Robitussin) 100 mg PO Q4H PRN PRN Reason: Cough Last Admin: 11/09/18 10:05 Dose: 100 mg Heparin Sodium (Porcine) (Heparin) 5,000 units SC Q8 [facility] Last Admin: 11/11/18 22:03 Dose: 5,000 units Ibuprofen (Motrin Tab) 600 mg PO Q6H PRN PRN Reason: Pain, moderate (4-7) Last Admin: 11/05/18 10:00 Dose: 600 mg Methadone HCl (Methadose) 120 mg PO DAILY [facility] Last Admin: 11/11/18 09:36 Dose: 120 mg Methadone HCl (Methadone) 20 mg PO DAILY [facility] Last Admin: 11/11/18 09:37 Dose: 20 mg Mirtazapine (Remeron) 30 mg PO HS [facility] Last Admin: 11/11/18 22:07 Dose: 30 mg Multivitamins (Hexavitamin) 1 tab PO DAILY [facility] Last Admin: 11/11/18 09:37 Dose: 1 tab Nicotine (Nicoderm Cq) 1 patch TD DAILY [facility] Last Admin: 11/11/18 09:59 Dose: 1 patch Ondansetron HCl (Zofran Inj) 4 mg IM Q6H PRN PRN Reason: Nausea/Vomiting Last Admin: 11/09/18 09:45 Dose: 4 mg Pantoprazole Sodium (Protonix Ec Tab) 40 mg PO DAILY [facility] Last Admin: 11/11/18 09:37 Dose: 40 mg Thiamine HCl (Vitamin B1 Tab) 100 mg PO DAILY [facility] Last Admin: 11/11/18 09:37 Dose: 100 mg Trazodone HCl (Desyrel) 200 mg PO HS PRN PRN Reason: Insomnia Last Admin: 11/11/18 22:07 Dose: 200 mg - Labs Labs: 11/11/18 07:40 11/11/18 07:40 Attending/Attestation - Attestation I have personally seen and examined this patient.: Yes I have fully participated in the care of the patient.: Yes I have reviewed all pertinent clinical information, including history, physical exam and plan: Yes Notes (Text): 11/12/18 02:04 This is a late entry. Care of this patient was gone over with resident Dr. Luh Gaming. Waldemar Mckeon D.O.
--- NOTE | 2018-11-08 00:20 | CP.PCM.PN ---
<Sudeep Ling - Last Filed: 11/08/18 00:18> Subjective - Date & Time of Evaluation Date of Evaluation: 11/08/18 Time of Evaluation: 00:18 - Subjective Subjective: Sudeep Ling PGY1 Progress Note for Dr. Mckeon Pt was examined at bedside. She has no complaints. She denies any chest pain, shortness of breath, abdominal pain, nausea, vomiting, diarrhea, dysuria. Objective - Vital Signs/Intake and Output Vital Signs (last 24 hours): Temp Pulse Resp BP Pulse Ox 98.2 F 66 20 120/66 94 L 11/07/18 16:00 11/07/18 16:00 11/07/18 16:00 11/07/18 16:00 11/07/18 16:00 Intake and Output: 11/07/18 11/08/18 18:59 06:59 Intake Total 300 Balance 300 - Medications Medications: Current Medications Albuterol (Ventolin Hfa 90 Mcg/Actuation (8 G)) 1 puff INH RQ4 PRN PRN Reason: SOB Last Admin: 11/04/18 06:57 Dose: 1 puff Albuterol/Ipratropium (Duoneb 3 Mg/0.5 Mg (3 Ml) Ud) 3 ml INH RQ2 PRN PRN Reason: Severe SOB or wheezing Last Admin: 11/07/18 08:20 Dose: 3 ml Clonidine HCl (Catapres) 0.1 mg PO Q4H PRN PRN Reason: Symptoms of alcohol withdrawl Escitalopram Oxalate (Lexapro) 10 mg PO DAILY [facility] Last Admin: 11/07/18 09:15 Dose: 10 mg Fluticasone/Vilanterol (Breo Ellipta 100-25 Mcg Inh) 1 puff INH RQD [facility] Last Admin: 11/07/18 08:20 Dose: 1 puff Folic Acid (Folic Acid) 1 mg PO DAILY [facility] Last Admin: 11/07/18 09:15 Dose: 1 mg Guaifenesin (Mucinex La) 600 mg PO BID [facility] Last Admin: 11/07/18 17:26 Dose: 600 mg Heparin Sodium (Porcine) (Heparin) 5,000 units SC Q8 [facility] Last Admin: 11/07/18 21:21 Dose: 5,000 units Ibuprofen (Motrin Tab) 600 mg PO Q6H PRN PRN Reason: Pain, moderate (4-7) Last Admin: 11/05/18 10:00 Dose: 600 mg Lorazepam (Ativan) 1 mg PO Q24H [facility]; Taper Stop: 11/08/18 09:59 Last Admin: 11/07/18 10:06 Dose: 1 mg Methadone HCl (Methadose) 120 mg PO DAILY [facility] Last Admin: 11/07/18 09:14 Dose: 120 mg Methadone HCl (Methadone) 20 mg PO DAILY [facility] Last Admin: 11/07/18 09:15 Dose: 20 mg Mirtazapine (Remeron) 30 mg PO HS [facility] Last Admin: 11/07/18 21:22 Dose: 30 mg Multivitamins (Hexavitamin) 1 tab PO DAILY [facility] Last Admin: 11/07/18 09:15 Dose: 1 tab Nicotine (Nicoderm Cq) 1 patch TD DAILY [facility] Last Admin: 11/07/18 09:14 Dose: 1 patch Ondansetron HCl (Zofran Inj) 4 mg IVP Q6H PRN PRN Reason: Nausea/Vomiting Pantoprazole Sodium (Protonix Ec Tab) 40 mg PO DAILY [facility] Last Admin: 11/07/18 09:15 Dose: 40 mg Thiamine HCl (Vitamin B1 Tab) 100 mg PO DAILY [facility] Last Admin: 11/07/18 09:14 Dose: 100 mg Trazodone HCl (Desyrel) 200 mg PO HS PRN PRN Reason: Insomnia Last Admin: 11/07/18 21:32 Dose: 200 mg - Labs Labs: 11/07/18 07:10 11/07/18 07:10 - Additional Findings Additional findings: - Constitutional Appears: Non-toxic, No Acute Distress - Head Exam Head Exam: ATRAUMATIC, NORMOCEPHALIC - Eye Exam Eye Exam: EOMI - ENT Exam ENT Exam: Mucous Membranes Moist - Respiratory Exam Respiratory Exam: Clear to Ausculation Bilateral, NORMAL BREATHING PATTERN. absent: Rales, Rhonchi, Wheezes Additional comments: 2L O2 via NC - Cardiovascular Exam Cardiovascular Exam: REGULAR RHYTHM, +S1, +S2 - GI/Abdominal Exam GI & Abdominal Exam: Soft, Normal Bowel Sounds. absent: Tenderness - Extremities Exam Extremities Exam: Normal Capillary Refill. absent: Calf Tenderness, Pedal Edema Additional comments: bilateral LE erythema. no tenderness to palpation or calf squeeze today. Healed scar 2/2 to old foot surgery. - Neurological Exam Neurological Exam: Alert, Awake, Normal Gait, Oriented x3 - Psychiatric Exam Psychiatric exam: Anxious - Skin Skin Exam: Dry, Intact, Normal Color, Warm Additional comments: generalized rubor Assessment and Plan - Assessment and Plan (Free Text) Assessment: Assessment: 48 yo F with past medical history of asthma, depression, diverticulitis, bipolar disorder, opioid abuse (on methadone) and alcohol abuse, admitted to psychiatry unit for bipolar disorder and alcohol abuse. Medicine consulted for evaluation of b/l lower extremity edema, which has now resolved. She is still having SOB and desaturating when not on supplemental O2. Plan: Oxygen desaturation with elevated d-dimer likely bilateral pulmonary fibrosis - patient snorted heroin for years prior to quitting. continues to smoke tobacco daily - CTA (11/04): neg for PE - patient failed 6 min pre- post- walk on 11/05. Was 95% pre-walk, Desat down to 77% after 4.5 min walk. - patient again failed on 11/06. Was taken off oxygen and interviewed. Desat down to 76% prior to walk. - Pulm consulted: Dr. Pond - recs appreciated - agree to d/c with home O2 LE Edema with elevated d-dimer - resolved - d-dimer: 302 - LE Doppler (11/03): neg for DVT - XR R Foot (11/03): No acute Fx or dislocation Asthma - Duonebs 3ml INH q2h PRN - Ventolin 1 puff q4h PRN - Mucinex 600mg po bid - Breo Ellipta 1 puff daily Mood Disorder: Bipolar Depression with Anxiety - management per Psych - Lexapro 10mg PO daily - Mirtazapine 15mg PO HS - Trazodone 200mg PO HS PRN Alcohol Use Disorder - management per Psych - CT A/P (11/03): severe fatty liver - US Abd (11/03): hepatomegaly/hepatic steatosis - ECHO (11/03): LVEF: 59.5% - ProBNP 37.7 - Clonidine 0.1mg PO q4h PRN - Folic acid 1mg PO daily - Ativan 1mg PO q12 [facility] - Multivitamin 1 tab PO daily - Thiamine 100mg PO daily - Zofran 1mg IVP q6 prn Opioid Use Disorder - management per Psych - Methadone 140mg po daily Nicotine Use Disorder - Nicotine patch 14mg/day td daily PPX - DVT: Heparin 5000 U SC Q8 - GI: Protonix 40mg po daily - Diet: Regular - Ibuprofen 600mg po q6 prn Dispo: Patient will require home O2 upon discharge. SW/CM is on the case. Patient is clear for discharge per Psych and Pulm (once obtaining home O2). <Waldemar Mckeon - Last Filed: 11/12/18 02:03> Objective - Vital Signs/Intake and Output Vital Signs (last 24 hours): Temp Pulse Resp BP Pulse Ox 98.0 F 62 20 111/63 96 11/12/18 00:00 11/12/18 00:00 11/12/18 00:00 11/12/18 00:00 11/12/18 00:00 Intake and Output: 11/11/18 11/12/18 18:59 06:59 Intake Total 300 Balance 300 - Medications Medications: Current Medications Albuterol (Ventolin Hfa 90 Mcg/Actuation (8 G)) 1 puff INH RQ4 PRN PRN Reason: SOB Last Admin: 11/04/18 06:57 Dose: 1 puff Albuterol/Ipratropium (Duoneb 3 Mg/0.5 Mg (3 Ml) Ud) 3 ml INH RQ2 PRN PRN Reason: Severe SOB or wheezing Last Admin: 11/07/18 08:20 Dose: 3 ml Clonazepam (Klonopin) 1 mg PO BID [facility] Clonidine HCl (Catapres) 0.1 mg PO Q4H PRN PRN Reason: Symptoms of alcohol withdrawl Last Admin: 11/11/18 09:58 Dose: 0.1 mg Escitalopram Oxalate (Lexapro) 10 mg PO DAILY [facility] Last Admin: 11/11/18 09:37 Dose: 10 mg Fluticasone/Vilanterol (Breo Ellipta 100-25 Mcg Inh) 1 puff INH RQD [facility] Last Admin: 11/11/18 08:54 Dose: Not Given Folic Acid (Folic Acid) 1 mg PO DAILY [facility] Last Admin: 11/11/18 09:37 Dose: 1 mg Guaifenesin (Mucinex La) 600 mg PO BID [facility] Last Admin: 11/11/18 19:36 Dose: 600 mg Guaifenesin (Robitussin) 100 mg PO Q4H PRN PRN Reason: Cough Last Admin: 11/09/18 10:05 Dose: 100 mg Heparin Sodium (Porcine) (Heparin) 5,000 units SC Q8 [facility] Last Admin: 11/11/18 22:03 Dose: 5,000 units Ibuprofen (Motrin Tab) 600 mg PO Q6H PRN PRN Reason: Pain, moderate (4-7) Last Admin: 11/05/18 10:00 Dose: 600 mg Methadone HCl (Methadose) 120 mg PO DAILY [facility] Last Admin: 11/11/18 09:36 Dose: 120 mg Methadone HCl (Methadone) 20 mg PO DAILY [facility] Last Admin: 11/11/18 09:37 Dose: 20 mg Mirtazapine (Remeron) 30 mg PO HS [facility] Last Admin: 11/11/18 22:07 Dose: 30 mg Multivitamins (Hexavitamin) 1 tab PO DAILY [facility] Last Admin: 11/11/18 09:37 Dose: 1 tab Nicotine (Nicoderm Cq) 1 patch TD DAILY [facility] Last Admin: 11/11/18 09:59 Dose: 1 patch Ondansetron HCl (Zofran Inj) 4 mg IM Q6H PRN PRN Reason: Nausea/Vomiting Last Admin: 11/09/18 09:45 Dose: 4 mg Pantoprazole Sodium (Protonix Ec Tab) 40 mg PO DAILY [facility] Last Admin: 11/11/18 09:37 Dose: 40 mg Thiamine HCl (Vitamin B1 Tab) 100 mg PO DAILY [facility] Last Admin: 11/11/18 09:37 Dose: 100 mg Trazodone HCl (Desyrel) 200 mg PO HS PRN PRN Reason: Insomnia Last Admin: 11/11/18 22:07 Dose: 200 mg - Labs Labs: 11/11/18 07:40 11/11/18 07:40 Attending/Attestation - Attestation I have personally seen and examined this patient.: Yes I have fully participated in the care of the patient.: Yes I have reviewed all pertinent clinical information, including history, physical exam and plan: Yes
[2018-11-08 08:03] LABS: HEMOGLOBIN 14.6 g/dL (11.0-16.0); MEAN CELL VOLUME 100.2 fL (81.0-99.0); MEAN CORPUSCULAR HEMOGLOBIN 33.6 pg (27.0-31.0); MEAN CORPUSCULAR HGB CONC 33.5 g/dL (33.0-37.0); MEAN PLATELET VOLUME 7.9 fL (7.2-11.7); RBC 4.36 Mil/uL (3.80-5.20); RED CELL DISTRIBUTION WIDTH 15.6 % (11.5-14.5)
[2018-11-08 08:18] LABS: ALB/GLOB RATIO 1.2 (1.0-2.1); ALBUMIN 3.3 g/dL (3.5-5.0); ALT/SGPT 119 U/L (9-52); AST/SGOT 138 U/L (14-36); BLOOD UREA NITROGEN 8 mg/dL (7-17); CALCIUM 8.2 mg/dl (8.6-10.4); GFR NON-AFRICAN AMERICAN > 60
[2018-11-08] MEDS: Fluticasone-Vilanterol 100/25mcg Diskus INH SCH (08:24)
[2018-11-08] MEDS: Methadone 40 mg Tab PO SCH (09:19)
[2018-11-08] MEDS: guaiFENesin 600 mg ER Tab PO SCH ×2 (09:21→17:17)
[2018-11-08] MEDS: Multiple Vitamins Tab PO SCH (09:21)
[2018-11-08] MEDS: Pantoprazole 40 mg EC Tab PO SCH (09:21)
--- NOTE | 2018-11-09 00:06 | CP.PCM.PN ---
<Sudeep Ling - Last Filed: 11/09/18 00:04> Subjective - Date & Time of Evaluation Date of Evaluation: 11/09/18 Time of Evaluation: 00:04 - Subjective Subjective: Sudeep Ling PGY1 Progress Note for Dr. Mckeon Pt was examined at bedside. She has no complaints. She denies any chest pain, shortness of breath, abdominal pain, nausea, vomiting, diarrhea, dysuria. Of note, PCP reported overhearing pt's speak to her about bringing unknown "substance" tomorrow morning. Objective - Vital Signs/Intake and Output Vital Signs (last 24 hours): Temp Pulse Resp BP Pulse Ox 98.3 F 76 20 105/68 95 11/08/18 15:00 11/08/18 15:00 11/08/18 15:00 11/08/18 15:00 11/08/18 15:00 Intake and Output: 11/08/18 11/09/18 18:59 06:59 Intake Total 480 400 Balance 480 400 - Medications Medications: Current Medications Albuterol (Ventolin Hfa 90 Mcg/Actuation (8 G)) 1 puff INH RQ4 PRN PRN Reason: SOB Last Admin: 11/04/18 06:57 Dose: 1 puff Albuterol/Ipratropium (Duoneb 3 Mg/0.5 Mg (3 Ml) Ud) 3 ml INH RQ2 PRN PRN Reason: Severe SOB or wheezing Last Admin: 11/07/18 08:20 Dose: 3 ml Clonidine HCl (Catapres) 0.1 mg PO Q4H PRN PRN Reason: Symptoms of alcohol withdrawl Last Admin: 11/08/18 21:50 Dose: 0.1 mg Escitalopram Oxalate (Lexapro) 10 mg PO DAILY [facility] Last Admin: 11/08/18 09:21 Dose: 10 mg Fluticasone/Vilanterol (Breo Ellipta 100-25 Mcg Inh) 1 puff INH RQD [facility] Last Admin: 11/08/18 08:24 Dose: 1 puff Folic Acid (Folic Acid) 1 mg PO DAILY [facility] Last Admin: 11/08/18 09:21 Dose: 1 mg Guaifenesin (Mucinex La) 600 mg PO BID [facility] Last Admin: 11/08/18 17:17 Dose: 600 mg Heparin Sodium (Porcine) (Heparin) 5,000 units SC Q8 [facility] Last Admin: 11/08/18 21:50 Dose: 5,000 units Ibuprofen (Motrin Tab) 600 mg PO Q6H PRN PRN Reason: Pain, moderate (4-7) Last Admin: 11/05/18 10:00 Dose: 600 mg Methadone HCl (Methadose) 120 mg PO DAILY [facility] Last Admin: 11/08/18 09:19 Dose: 120 mg Methadone HCl (Methadone) 20 mg PO DAILY [facility] Last Admin: 11/08/18 09:20 Dose: 20 mg Mirtazapine (Remeron) 30 mg PO HS [facility] Last Admin: 11/08/18 21:50 Dose: 30 mg Multivitamins (Hexavitamin) 1 tab PO DAILY [facility] Last Admin: 11/08/18 09:21 Dose: 1 tab Nicotine (Nicoderm Cq) 1 patch TD DAILY [facility] Last Admin: 11/08/18 09:22 Dose: 1 patch Ondansetron HCl (Zofran Inj) 4 mg IM Q6H PRN PRN Reason: Nausea/Vomiting Last Admin: 11/08/18 19:15 Dose: 4 mg Pantoprazole Sodium (Protonix Ec Tab) 40 mg PO DAILY [facility] Last Admin: 11/08/18 09:21 Dose: 40 mg Thiamine HCl (Vitamin B1 Tab) 100 mg PO DAILY [facility] Last Admin: 11/08/18 09:21 Dose: 100 mg Trazodone HCl (Desyrel) 200 mg PO HS PRN PRN Reason: Insomnia Last Admin: 11/07/18 21:32 Dose: 200 mg - Labs Labs: 11/08/18 07:50 11/08/18 07:50 - Additional Findings Additional findings: - Constitutional Appears: Non-toxic, No Acute Distress - Head Exam Head Exam: ATRAUMATIC, NORMOCEPHALIC - Eye Exam Eye Exam: EOMI - ENT Exam ENT Exam: Mucous Membranes Moist - Respiratory Exam Respiratory Exam: Clear to Ausculation Bilateral, NORMAL BREATHING PATTERN. absent: Rales, Rhonchi, Wheezes Additional comments: 2L O2 via NC - Cardiovascular Exam Cardiovascular Exam: REGULAR RHYTHM, +S1, +S2 - GI/Abdominal Exam GI & Abdominal Exam: Soft, Normal Bowel Sounds. absent: Tenderness - Extremities Exam Extremities Exam: Normal Capillary Refill. absent: Calf Tenderness, Pedal Edema Additional comments: bilateral LE erythema. no tenderness to palpation or calf squeeze today. Healed scar 2/2 to old foot surgery. - Neurological Exam Neurological Exam: Alert, Awake, Normal Gait, Oriented x3 - Psychiatric Exam Psychiatric exam: Anxious - Skin Skin Exam: Dry, Intact, Normal Color, Warm Additional comments: generalized rubor Assessment and Plan - Assessment and Plan (Free Text) Assessment: 48 yo F with past medical history of asthma, depression, diverticulitis, bipolar disorder, opioid abuse (on methadone) and alcohol abuse, admitted to psychiatry unit for bipolar disorder and alcohol abuse. Medicine consulted for evaluation of b/l lower extremity edema, which has now resolved. She is still having SOB and desaturating when not on supplemental O2. Plan: Oxygen desaturation with elevated d-dimer likely bilateral pulmonary fibrosis - patient snorted heroin for years prior to quitting. continues to smoke tobacco daily - CTA (11/04): neg for PE - patient failed 6 min pre- post- walk on 11/05. Was 95% pre-walk, Desat down to 77% after 4.5 min walk. - patient again failed on 11/06. Was taken off oxygen and interviewed. Desat down to 76% prior to walk. - Pulm consulted: Dr. Pond - recs appreciated - agree to d/c with home O2 LE Edema with elevated d-dimer - resolved - d-dimer: 302 - LE Doppler (11/03): neg for DVT - XR R Foot (11/03): No acute Fx or dislocation Asthma - Duonebs 3ml INH q2h PRN - Ventolin 1 puff q4h PRN - Mucinex 600mg po bid - Breo Ellipta 1 puff daily Mood Disorder: Bipolar Depression with Anxiety - management per Psych - Lexapro 10mg PO daily - Mirtazapine 15mg PO HS - Trazodone 200mg PO HS PRN Alcohol Use Disorder - management per Psych - CT A/P (11/03): severe fatty liver - US Abd (11/03): hepatomegaly/hepatic steatosis - ECHO (11/03): LVEF: 59.5% - ProBNP 37.7 - Clonidine 0.1mg PO q4h PRN - Folic acid 1mg PO daily - Ativan 1mg PO q12 [facility] - Multivitamin 1 tab PO daily - Thiamine 100mg PO daily - Zofran 1mg IVP q6 prn Opioid Use Disorder - management per Psych - Methadone 140mg po daily - f/u UDS Nicotine Use Disorder - Nicotine patch 14mg/day td daily PPX - DVT: Heparin 5000 U SC Q8 - GI: Protonix 40mg po daily - Diet: Regular - Ibuprofen 600mg po q6 prn Dispo: Patient will require home O2 upon discharge. SW/CM is on the case. Patient is clear for discharge per Psych and Pulm (once obtaining home O2). <Waldemar Mckeon - Last Filed: 11/12/18 02:03> Objective - Vital Signs/Intake and Output Vital Signs (last 24 hours): Temp Pulse Resp BP Pulse Ox 98.0 F 62 20 111/63 96 11/12/18 00:00 11/12/18 00:00 11/12/18 00:00 11/12/18 00:00 11/12/18 00:00 Intake and Output: 11/11/18 11/12/18 18:59 06:59 Intake Total 300 Balance 300 - Medications Medications: Current Medications Albuterol (Ventolin Hfa 90 Mcg/Actuation (8 G)) 1 puff INH RQ4 PRN PRN Reason: SOB Last Admin: 11/04/18 06:57 Dose: 1 puff Albuterol/Ipratropium (Duoneb 3 Mg/0.5 Mg (3 Ml) Ud) 3 ml INH RQ2 PRN PRN Reason: Severe SOB or wheezing Last Admin: 11/07/18 08:20 Dose: 3 ml Clonazepam (Klonopin) 1 mg PO BID [facility] Clonidine HCl (Catapres) 0.1 mg PO Q4H PRN PRN Reason: Symptoms of alcohol withdrawl Last Admin: 11/11/18 09:58 Dose: 0.1 mg Escitalopram Oxalate (Lexapro) 10 mg PO DAILY [facility] Last Admin: 11/11/18 09:37 Dose: 10 mg Fluticasone/Vilanterol (Breo Ellipta 100-25 Mcg Inh) 1 puff INH RQD [facility] Last Admin: 11/11/18 08:54 Dose: Not Given Folic Acid (Folic Acid) 1 mg PO DAILY [facility] Last Admin: 11/11/18 09:37 Dose: 1 mg Guaifenesin (Mucinex La) 600 mg PO BID [facility] Last Admin: 11/11/18 19:36 Dose: 600 mg Guaifenesin (Robitussin) 100 mg PO Q4H PRN PRN Reason: Cough Last Admin: 11/09/18 10:05 Dose: 100 mg Heparin Sodium (Porcine) (Heparin) 5,000 units SC Q8 [facility] Last Admin: 11/11/18 22:03 Dose: 5,000 units Ibuprofen (Motrin Tab) 600 mg PO Q6H PRN PRN Reason: Pain, moderate (4-7) Last Admin: 11/05/18 10:00 Dose: 600 mg Methadone HCl (Methadose) 120 mg PO DAILY [facility] Last Admin: 11/11/18 09:36 Dose: 120 mg Methadone HCl (Methadone) 20 mg PO DAILY [facility] Last Admin: 11/11/18 09:37 Dose: 20 mg Mirtazapine (Remeron) 30 mg PO HS [facility] Last Admin: 11/11/18 22:07 Dose: 30 mg Multivitamins (Hexavitamin) 1 tab PO DAILY [facility] Last Admin: 11/11/18 09:37 Dose: 1 tab Nicotine (Nicoderm Cq) 1 patch TD DAILY [facility] Last Admin: 11/11/18 09:59 Dose: 1 patch Ondansetron HCl (Zofran Inj) 4 mg IM Q6H PRN PRN Reason: Nausea/Vomiting Last Admin: 11/09/18 09:45 Dose: 4 mg Pantoprazole Sodium (Protonix Ec Tab) 40 mg PO DAILY [facility] Last Admin: 11/11/18 09:37 Dose: 40 mg Thiamine HCl (Vitamin B1 Tab) 100 mg PO DAILY [facility] Last Admin: 11/11/18 09:37 Dose: 100 mg Trazodone HCl (Desyrel) 200 mg PO HS PRN PRN Reason: Insomnia Last Admin: 11/11/18 22:07 Dose: 200 mg - Labs Labs: 11/11/18 07:40 11/11/18 07:40 Attending/Attestation - Attestation I have personally seen and examined this patient.: Yes I have fully participated in the care of the patient.: Yes I have reviewed all pertinent clinical information, including history, physical exam and plan: Yes
[2018-11-09] MEDS: guaiFENesin 100 mg/5 ml Syrup UD PO PRN ×2 (05:10→10:05)
[2018-11-09 08:08] LABS: HEMOGLOBIN 14.5 g/dL (11.0-16.0); MEAN CELL VOLUME 100.3 fL (81.0-99.0); MEAN CORPUSCULAR HEMOGLOBIN 33.9 pg (27.0-31.0); MEAN CORPUSCULAR HGB CONC 33.8 g/dL (33.0-37.0); MEAN PLATELET VOLUME 8.2 fL (7.2-11.7); RBC 4.26 Mil/uL (3.80-5.20); RED CELL DISTRIBUTION WIDTH 15.7 % (11.5-14.5); WHITE BLOOD COUNT 5.2 K/uL (4.8-10.8)
[2018-11-09 08:20] LABS: ALB/GLOB RATIO 1.2 (1.0-2.1); ALBUMIN 3.5 g/dL (3.5-5.0); ALT/SGPT 139 U/L (9-52); AST/SGOT 224 U/L (14-36); BLOOD UREA NITROGEN 5 mg/dL (7-17); CALCIUM 8.3 mg/dl (8.6-10.4); GFR NON-AFRICAN AMERICAN > 60
[2018-11-09 08:25] LABS: BARBITURATES, UR NEGATIVE (NEGATIVE); BENZODIAZEPINES, UR NEGATIVE (NEGATIVE); OPIATES, UR NEGATIVE (NEGATIVE); PHENCYCLIDINE, UR NEGATIVE (NEGATIVE)
[2018-11-09] MEDS: guaiFENesin 600 mg ER Tab PO SCH ×2 (10:04→17:48)
[2018-11-09] MEDS: Pantoprazole 40 mg EC Tab PO SCH (10:05)
[2018-11-09] MEDS: Methadone 40 mg Tab PO SCH (10:05)
[2018-11-09] MEDS: Multiple Vitamins Tab PO SCH (10:05)
[2018-11-09] MEDS: Fluticasone-Vilanterol 100/25mcg Diskus INH SCH (11:12)
[2018-11-09] MEDS ORDERED: Potassium Chloride 20 mEq/15 ml LIQ UD PO ONE ×2 (13:00→18:00)
[2018-11-10 07:57] LABS: HEMOGLOBIN 14.6 g/dL (11.0-16.0); MEAN CELL VOLUME 100.5 fL (81.0-99.0); MEAN CORPUSCULAR HEMOGLOBIN 33.5 pg (27.0-31.0); MEAN CORPUSCULAR HGB CONC 33.4 g/dL (33.0-37.0); MEAN PLATELET VOLUME 8.7 fL (7.2-11.7); RBC 4.35 Mil/uL (3.80-5.20); RED CELL DISTRIBUTION WIDTH 15.8 % (11.5-14.5); WHITE BLOOD COUNT 5.6 K/uL (4.8-10.8)
[2018-11-10 08:23] LABS: ALB/GLOB RATIO 1.3 (1.0-2.1); ALBUMIN 3.4 g/dL (3.5-5.0); ALT/SGPT 172 U/L (9-52); AST/SGOT 240 U/L (14-36); BLOOD UREA NITROGEN 9 mg/dL (7-17); CALCIUM 8.4 mg/dl (8.6-10.4); GFR NON-AFRICAN AMERICAN > 60
--- NOTE | 2018-11-10 09:08 | CP.PCM.PN ---
<Ras White - Last Filed: 11/10/18 17:31> Subjective - Date & Time of Evaluation Date of Evaluation: 11/10/18 Time of Evaluation: 09:05 - Subjective Subjective: PGY-[address] Waldemar Mckeon Patient seen and examined at bedside. She denies shortness of breath at rest. Patient still reports shakes from withdrawal. Patient ready to be discharged once home 02 can be arranged. Denies chest pain, nausea, vomiting, headache, dizziness. 6 minute walk test: -O2 sat prior to walkin% with nasal canula oxygen and 96% with nasal canula removed -Post-walk patient desaturated to 88% without nasal canula oxygen. Saturation went back to 96% with nasal canula re-applied. Objective - Vital Signs/Intake and Output Vital Signs (last 24 hours): Temp Pulse Resp BP Pulse Ox 98.0 F 75 20 117/75 96 11/10/18 00:00 11/10/18 00:00 11/10/18 00:00 11/10/18 00:00 11/10/18 00:00 Intake and Output: 11/10/18 11/10/18 06:59 18:59 Intake Total 650 Balance 650 - Medications Medications: Current Medications Albuterol (Ventolin Hfa 90 Mcg/Actuation (8 G)) 1 puff INH RQ4 PRN PRN Reason: SOB Last Admin: 11/04/18 06:57 Dose: 1 puff Albuterol/Ipratropium (Duoneb 3 Mg/0.5 Mg (3 Ml) Ud) 3 ml INH RQ2 PRN PRN Reason: Severe SOB or wheezing Last Admin: 11/07/18 08:20 Dose: 3 ml Clonidine HCl (Catapres) 0.1 mg PO Q4H PRN PRN Reason: Symptoms of alcohol withdrawl Last Admin: 11/09/18 21:15 Dose: 0.1 mg Escitalopram Oxalate (Lexapro) 10 mg PO DAILY [facility] Last Admin: 11/09/18 10:05 Dose: 10 mg Fluticasone/Vilanterol (Breo Ellipta 100-25 Mcg Inh) 1 puff INH RQD [facility] Last Admin: 11/09/18 11:12 Dose: 1 puff Folic Acid (Folic Acid) 1 mg PO DAILY [facility] Last Admin: 11/09/18 10:05 Dose: 1 mg Guaifenesin (Mucinex La) 600 mg PO BID [facility] Last Admin: 11/09/18 17:48 Dose: 600 mg Guaifenesin (Robitussin) 100 mg PO Q4H PRN PRN Reason: Cough Last Admin: 11/09/18 10:05 Dose: 100 mg Heparin Sodium (Porcine) (Heparin) 5,000 units SC Q8 [facility] Last Admin: 11/10/18 05:51 Dose: 5,000 units Ibuprofen (Motrin Tab) 600 mg PO Q6H PRN PRN Reason: Pain, moderate (4-7) Last Admin: 11/05/18 10:00 Dose: 600 mg Methadone HCl (Methadose) 120 mg PO DAILY [facility] Last Admin: 11/09/18 10:05 Dose: 120 mg Methadone HCl (Methadone) 20 mg PO DAILY [facility] Last Admin: 11/09/18 10:05 Dose: 20 mg Mirtazapine (Remeron) 30 mg PO HS [facility] Last Admin: 11/09/18 21:15 Dose: 30 mg Multivitamins (Hexavitamin) 1 tab PO DAILY [facility] Last Admin: 11/09/18 10:05 Dose: 1 tab Nicotine (Nicoderm Cq) 1 patch TD DAILY [facility] Last Admin: 11/09/18 10:06 Dose: 1 patch Ondansetron HCl (Zofran Inj) 4 mg IM Q6H PRN PRN Reason: Nausea/Vomiting Last Admin: 11/09/18 09:45 Dose: 4 mg Pantoprazole Sodium (Protonix Ec Tab) 40 mg PO DAILY [facility] Last Admin: 11/09/18 10:05 Dose: 40 mg Thiamine HCl (Vitamin B1 Tab) 100 mg PO DAILY [facility] Last Admin: 11/09/18 10:05 Dose: 100 mg Trazodone HCl (Desyrel) 200 mg PO HS PRN PRN Reason: Insomnia Last Admin: 11/09/18 21:16 Dose: 200 mg - Labs Labs: 11/10/18 07:53 11/10/18 07:53 - Constitutional Appears: Non-toxic - Head Exam Head Exam: ATRAUMATIC, NORMOCEPHALIC Additional comments: Facial swelling improved - Eye Exam Eye Exam: EOMI, Normal appearance - ENT Exam ENT Exam: Mucous Membranes Moist - Respiratory Exam Respiratory Exam: Decreased Breath Sounds. absent: Rhonchi, Wheezes Additional comments: Productive cough - Cardiovascular Exam Cardiovascular Exam: REGULAR RHYTHM, +S1, +S2 - GI/Abdominal Exam GI & Abdominal Exam: Soft, Normal Bowel Sounds. absent: Tenderness - Extremities Exam Extremities Exam: absent: Pedal Edema, Tenderness - Neurological Exam Neurological Exam: Alert, Awake, Oriented x3 - Psychiatric Exam Psychiatric exam: Normal Affect, Normal Mood - Skin Skin Exam: Dry, Intact Assessment and Plan - Assessment and Plan (Free Text) Assessment: 48 yo F with past medical history of asthma, depression, diverticulitis, bipolar disorder, opioid abuse (on methadone) and alcohol abuse, admitted to psychiatry unit for bipolar disorder and alcohol abuse. Medicine consulted for evaluation of b/l lower extremity edema, which has now resolved. She is still having SOB and desaturating when not on supplemental O2. Plan: Oxygen desaturation with elevated d-dimer likely bilateral pulmonary fibrosis - patient snorted heroin for years prior to quitting. continues to smoke tobacco daily - CTA (11/04): neg for PE - patient failed 6 min pre- post- walk on 11/05. Was 95% pre-walk, Desat down to 77% after 4.5 min walk. - patient again failed on 11/06. Was taken off oxygen and interviewed. Desat down to 76% prior to walk. - Pulm consulted: Dr. Pond - recs appreciated - agree to d/c with home O2 - 6 minute walk: desatted to 88% --> see subjective portion of note LE Edema with elevated d-dimer - resolved - d-dimer: 302 - LE Doppler (11/03): neg for DVT - XR R Foot (11/03): No acute Fx or dislocation Asthma - Duonebs 3ml INH q2h PRN - Ventolin 1 puff q4h PRN - Mucinex 600mg po bid - Breo Ellipta 1 puff daily Mood Disorder: Bipolar Depression with Anxiety - management per Psych - Lexapro 10mg PO daily - Mirtazapine 15mg PO HS - Trazodone 200mg PO HS PRN Alcohol Use Disorder - management per Psych - CT A/P (11/03): severe fatty liver - US Abd (11/03): hepatomegaly/hepatic steatosis - ECHO (11/03): LVEF: 59.5% - ProBNP 37.7 - Clonidine 0.1mg PO q4h PRN - Folic acid 1mg PO daily - Ativan 1mg PO q12 [facility] - Multivitamin 1 tab PO daily - Thiamine 100mg PO daily - Zofran 1mg IVP q6 prn Opioid Use Disorder - management per Psych - Methadone 140mg po daily - f/u UDS Nicotine Use Disorder - Nicotine patch 14mg/day td daily PPX - DVT: Heparin 5000 U SC Q8 - GI: Protonix 40mg po daily - Diet: Regular - Ibuprofen 600mg po q6 prn Dispo: Patient will require home O2 upon discharge. SW/CM is on the case. Patient is clear for discharge per Psych and Pulm (once obtaining home O2). Assessment and Plan discussed with Dr. Alexander White, PGY-1 <Waldemar Mckeon - Last Filed: 11/12/18 02:03> Objective - Vital Signs/Intake and Output Vital Signs (last 24 hours): Temp Pulse Resp BP Pulse Ox 98.0 F 62 20 111/63 96 11/12/18 00:00 11/12/18 00:00 11/12/18 00:00 11/12/18 00:00 11/12/18 00:00 Intake and Output: 11/11/18 11/12/18 18:59 06:59 Intake Total 300 Balance 300 - Medications Medications: Current Medications Albuterol (Ventolin Hfa 90 Mcg/Actuation (8 G)) 1 puff INH RQ4 PRN PRN Reason: SOB Last Admin: 11/04/18 06:57 Dose: 1 puff Albuterol/Ipratropium (Duoneb 3 Mg/0.5 Mg (3 Ml) Ud) 3 ml INH RQ2 PRN PRN Reason: Severe SOB or wheezing Last Admin: 11/07/18 08:20 Dose: 3 ml Clonazepam (Klonopin) 1 mg PO BID [facility] Clonidine HCl (Catapres) 0.1 mg PO Q4H PRN PRN Reason: Symptoms of alcohol withdrawl Last Admin: 11/11/18 09:58 Dose: 0.1 mg Escitalopram Oxalate (Lexapro) 10 mg PO DAILY [facility] Last Admin: 11/11/18 09:37 Dose: 10 mg Fluticasone/Vilanterol (Breo Ellipta 100-25 Mcg Inh) 1 puff INH RQD [facility] Last Admin: 11/11/18 08:54 Dose: Not Given Folic Acid (Folic Acid) 1 mg PO DAILY [facility] Last Admin: 11/11/18 09:37 Dose: 1 mg Guaifenesin (Mucinex La) 600 mg PO BID [facility] Last Admin: 11/11/18 19:36 Dose: 600 mg Guaifenesin (Robitussin) 100 mg PO Q4H PRN PRN Reason: Cough Last Admin: 11/09/18 10:05 Dose: 100 mg Heparin Sodium (Porcine) (Heparin) 5,000 units SC Q8 [facility] Last Admin: 11/11/18 22:03 Dose: 5,000 units Ibuprofen (Motrin Tab) 600 mg PO Q6H PRN PRN Reason: Pain, moderate (4-7) Last Admin: 11/05/18 10:00 Dose: 600 mg Methadone HCl (Methadose) 120 mg PO DAILY [facility] Last Admin: 11/11/18 09:36 Dose: 120 mg Methadone HCl (Methadone) 20 mg PO DAILY [facility] Last Admin: 11/11/18 09:37 Dose: 20 mg Mirtazapine (Remeron) 30 mg PO HS [facility] Last Admin: 11/11/18 22:07 Dose: 30 mg Multivitamins (Hexavitamin) 1 tab PO DAILY [facility] Last Admin: 11/11/18 09:37 Dose: 1 tab Nicotine (Nicoderm Cq) 1 patch TD DAILY [facility] Last Admin: 11/11/18 09:59 Dose: 1 patch Ondansetron HCl (Zofran Inj) 4 mg IM Q6H PRN PRN Reason: Nausea/Vomiting Last Admin: 11/09/18 09:45 Dose: 4 mg Pantoprazole Sodium (Protonix Ec Tab) 40 mg PO DAILY [facility] Last Admin: 11/11/18 09:37 Dose: 40 mg Thiamine HCl (Vitamin B1 Tab) 100 mg PO DAILY [facility] Last Admin: 11/11/18 09:37 Dose: 100 mg Trazodone HCl (Desyrel) 200 mg PO HS PRN PRN Reason: Insomnia Last Admin: 11/11/18 22:07 Dose: 200 mg - Labs Labs: 11/11/18 07:40 11/11/18 07:40 Attending/Attestation - Attestation I have personally seen and examined this patient.: Yes I have fully participated in the care of the patient.: Yes I have reviewed all pertinent clinical information, including history, physical exam and plan: Yes Notes (Text): 11/12/18 02:02 This is a late entry. Care of this patient was gone over with resident Dr. White. Waldemar Mckeon D.O.
[2018-11-10] MEDS: Pantoprazole 40 mg EC Tab PO SCH (09:37)
[2018-11-10] MEDS: Methadone 40 mg Tab PO SCH (09:37)
[2018-11-10] MEDS: Multiple Vitamins Tab PO SCH (09:37)
[2018-11-10] MEDS: guaiFENesin 600 mg ER Tab PO SCH ×2 (09:37→17:55)
[2018-11-10] MEDS: Fluticasone-Vilanterol 100/25mcg Diskus INH SCH (11:08)
--- NOTE | 2018-11-11 03:38 | CP.PCM.PN ---
<Shauna Apple - Last Filed: 11/11/18 06:52> Subjective - Date & Time of Evaluation Date of Evaluation: 11/11/18 Time of Evaluation: 04:50 - Subjective Subjective: Patient examined at bedside. No acute overnight events. Patient reports shortness of breath with activity, but denies at rest. Denies chest pain, nausea, diarrhea. Objective - Vital Signs/Intake and Output Vital Signs (last 24 hours): Temp Pulse Resp BP Pulse Ox 98.2 F 58 L 20 130/83 97 11/10/18 23:19 11/10/18 23:19 11/10/18 23:19 11/10/18 23:19 11/10/18 23:19 - Medications Medications: Current Medications Albuterol (Ventolin Hfa 90 Mcg/Actuation (8 G)) 1 puff INH RQ4 PRN PRN Reason: SOB Last Admin: 11/04/18 06:57 Dose: 1 puff Albuterol/Ipratropium (Duoneb 3 Mg/0.5 Mg (3 Ml) Ud) 3 ml INH RQ2 PRN PRN Reason: Severe SOB or wheezing Last Admin: 11/07/18 08:20 Dose: 3 ml Clonidine HCl (Catapres) 0.1 mg PO Q4H PRN PRN Reason: Symptoms of alcohol withdrawl Last Admin: 11/10/18 22:43 Dose: 0.1 mg Escitalopram Oxalate (Lexapro) 10 mg PO DAILY [facility] Last Admin: 11/10/18 09:37 Dose: 10 mg Fluticasone/Vilanterol (Breo Ellipta 100-25 Mcg Inh) 1 puff INH RQD [facility] Last Admin: 11/10/18 11:08 Dose: 1 puff Folic Acid (Folic Acid) 1 mg PO DAILY [facility] Last Admin: 11/10/18 09:37 Dose: 1 mg Guaifenesin (Mucinex La) 600 mg PO BID [facility] Last Admin: 11/10/18 17:55 Dose: 600 mg Guaifenesin (Robitussin) 100 mg PO Q4H PRN PRN Reason: Cough Last Admin: 11/09/18 10:05 Dose: 100 mg Heparin Sodium (Porcine) (Heparin) 5,000 units SC Q8 [facility] Last Admin: 11/10/18 21:09 Dose: 5,000 units Ibuprofen (Motrin Tab) 600 mg PO Q6H PRN PRN Reason: Pain, moderate (4-7) Last Admin: 11/05/18 10:00 Dose: 600 mg Methadone HCl (Methadose) 120 mg PO DAILY [facility] Last Admin: 11/10/18 09:37 Dose: 120 mg Methadone HCl (Methadone) 20 mg PO DAILY [facility] Last Admin: 11/10/18 09:37 Dose: 20 mg Mirtazapine (Remeron) 30 mg PO HS [facility] Last Admin: 11/10/18 21:59 Dose: 30 mg Multivitamins (Hexavitamin) 1 tab PO DAILY [facility] Last Admin: 11/10/18 09:37 Dose: 1 tab Nicotine (Nicoderm Cq) 1 patch TD DAILY [facility] Last Admin: 11/10/18 09:37 Dose: 1 patch Ondansetron HCl (Zofran Inj) 4 mg IM Q6H PRN PRN Reason: Nausea/Vomiting Last Admin: 11/09/18 09:45 Dose: 4 mg Pantoprazole Sodium (Protonix Ec Tab) 40 mg PO DAILY [facility] Last Admin: 11/10/18 09:37 Dose: 40 mg Thiamine HCl (Vitamin B1 Tab) 100 mg PO DAILY [facility] Last Admin: 11/10/18 09:37 Dose: 100 mg Trazodone HCl (Desyrel) 200 mg PO HS PRN PRN Reason: Insomnia Last Admin: 11/10/18 21:08 Dose: 200 mg - Labs Labs: 11/10/18 07:53 11/10/18 07:53 Assessment and Plan - Assessment and Plan (Free Text) Assessment: 48 yo F with past medical history of asthma, depression, diverticulitis, bipolar disorder, opioid abuse (on methadone) and alcohol abuse, admitted to psychiatry unit for bipolar disorder and alcohol abuse. Medicine consulted for evaluation of b/l lower extremity edema, which has now resolved. She is still having SOB and desaturating when not on supplemental O2. Plan: Oxygen desaturation with elevated d-dimer likely bilateral pulmonary fibrosis - patient snorted heroin for years prior to quitting. continues to smoke tobacco daily - CTA (11/04): neg for PE - patient failed 6 min pre- post- walk on 11/05. Was 95% pre-walk, Desat down to 77% after 4.5 min walk. - patient again failed on 11/06. Was taken off oxygen and interviewed. Desat down to 76% prior to walk. - Pulm consulted: Dr. Pond - recs appreciated - agree to d/c with home O2 - 6 minute walk: desatted to 88% --> see subjective portion of note LE Edema with elevated d-dimer - resolved - d-dimer: 302 - LE Doppler (11/03): neg for DVT - XR R Foot (11/03): No acute Fx or dislocation Asthma - Duonebs 3ml INH q2h PRN - Ventolin 1 puff q4h PRN - Mucinex 600mg po bid - Breo Ellipta 1 puff daily Mood Disorder: Bipolar Depression with Anxiety - management per Psych - Lexapro 10mg PO daily - Mirtazapine 30mg PO HS - Trazodone 200mg PO HS PRN Alcohol Use Disorder - management per Psych - US Abd (11/03): hepatomegaly/hepatic steatosis; - CT A/P (11/03): severe fatty liver - ECHO (11/03): LVEF: 59.5% - Clonidine 0.1mg PO q4h PRN - Folic acid 1mg PO daily - Multivitamin 1 tab PO daily - Thiamine 100mg PO daily - Zofran 1mg IM q6 prn Opioid Use Disorder - management per Psych - Methadone 20mg po daily - f/u UDS Nicotine Use Disorder - Nicotine patch 14mg/day td daily PPX - DVT: Heparin 5000 U SC Q8 - GI: Protonix 40mg po daily - Diet: Regular - Ibuprofen 600mg po q6 prn Dispo: Patient will require home O2 upon discharge. SW/CM is on the case. Patient is clear for discharge per Psych and Pulm (once obtaining home O2). Discussed w/ discussed with Dr. Mike Apple, PGY-1 <Waldemar Mckeon - Last Filed: 11/12/18 02:02> Objective - Vital Signs/Intake and Output Vital Signs (last 24 hours): Temp Pulse Resp BP Pulse Ox 98.0 F 62 20 111/63 96 11/12/18 00:00 11/12/18 00:00 11/12/18 00:00 11/12/18 00:00 11/12/18 00:00 Intake and Output: 11/11/18 11/12/18 18:59 06:59 Intake Total 300 Balance 300 - Medications Medications: Current Medications Albuterol (Ventolin Hfa 90 Mcg/Actuation (8 G)) 1 puff INH RQ4 PRN PRN Reason: SOB Last Admin: 11/04/18 06:57 Dose: 1 puff Albuterol/Ipratropium (Duoneb 3 Mg/0.5 Mg (3 Ml) Ud) 3 ml INH RQ2 PRN PRN Reason: Severe SOB or wheezing Last Admin: 11/07/18 08:20 Dose: 3 ml Clonazepam (Klonopin) 1 mg PO BID [facility] Clonidine HCl (Catapres) 0.1 mg PO Q4H PRN PRN Reason: Symptoms of alcohol withdrawl Last Admin: 11/11/18 09:58 Dose: 0.1 mg Escitalopram Oxalate (Lexapro) 10 mg PO DAILY [facility] Last Admin: 11/11/18 09:37 Dose: 10 mg Fluticasone/Vilanterol (Breo Ellipta 100-25 Mcg Inh) 1 puff INH RQD [facility] Last Admin: 11/11/18 08:54 Dose: Not Given Folic Acid (Folic Acid) 1 mg PO DAILY [facility] Last Admin: 11/11/18 09:37 Dose: 1 mg Guaifenesin (Mucinex La) 600 mg PO BID [facility] Last Admin: 11/11/18 19:36 Dose: 600 mg Guaifenesin (Robitussin) 100 mg PO Q4H PRN PRN Reason: Cough Last Admin: 11/09/18 10:05 Dose: 100 mg Heparin Sodium (Porcine) (Heparin) 5,000 units SC Q8 [facility] Last Admin: 11/11/18 22:03 Dose: 5,000 units Ibuprofen (Motrin Tab) 600 mg PO Q6H PRN PRN Reason: Pain, moderate (4-7) Last Admin: 11/05/18 10:00 Dose: 600 mg Methadone HCl (Methadose) 120 mg PO DAILY [facility] Last Admin: 11/11/18 09:36 Dose: 120 mg Methadone HCl (Methadone) 20 mg PO DAILY [facility] Last Admin: 11/11/18 09:37 Dose: 20 mg Mirtazapine (Remeron) 30 mg PO HS [facility] Last Admin: 11/11/18 22:07 Dose: 30 mg Multivitamins (Hexavitamin) 1 tab PO DAILY [facility] Last Admin: 11/11/18 09:37 Dose: 1 tab Nicotine (Nicoderm Cq) 1 patch TD DAILY [facility] Last Admin: 11/11/18 09:59 Dose: 1 patch Ondansetron HCl (Zofran Inj) 4 mg IM Q6H PRN PRN Reason: Nausea/Vomiting Last Admin: 11/09/18 09:45 Dose: 4 mg Pantoprazole Sodium (Protonix Ec Tab) 40 mg PO DAILY [facility] Last Admin: 11/11/18 09:37 Dose: 40 mg Thiamine HCl (Vitamin B1 Tab) 100 mg PO DAILY [facility] Last Admin: 11/11/18 09:37 Dose: 100 mg Trazodone HCl (Desyrel) 200 mg PO HS PRN PRN Reason: Insomnia Last Admin: 11/11/18 22:07 Dose: 200 mg - Labs Labs: 11/11/18 07:40 11/11/18 07:40 Attending/Attestation - Attestation I have personally seen and examined this patient.: Yes I have fully participated in the care of the patient.: Yes I have reviewed all pertinent clinical information, including history, physical exam and plan: Yes
[2018-11-11 07:45] LABS: BASO # 0.1 K/uL (0.0-0.2); BASO % 1.5 % (0.0-2.0); EOS # 0.3 K/uL (0.0-0.7); EOS % 3.9 % (0.0-4.0); HEMOGLOBIN 14.7 g/dL (11.0-16.0); LYMPH # 1.8 K/uL (1.0-4.3); LYMPH % 26.8 % (20.0-40.0); MEAN CELL VOLUME 99.3 fL (81.0-99.0); MEAN CORPUSCULAR HGB CONC 33.3 g/dL (33.0-37.0); MEAN PLATELET VOLUME 8.5 fL (7.2-11.7); MONO # 1.1 K/uL (0.0-0.8); MONO % 16.7 % (0.0-10.0); NEUT # 3.4 K/uL (1.8-7.0); NEUT % 51.1 % (50.0-75.0); RBC 4.44 Mil/uL (3.80-5.20); RED CELL DISTRIBUTION WIDTH 15.4 % (11.5-14.5); WHITE BLOOD COUNT 6.6 K/uL (4.8-10.8)
[2018-11-11 08:13] LABS: ALB/GLOB RATIO 1.2 (1.0-2.1); ALBUMIN 3.5 g/dL (3.5-5.0); ALT/SGPT 160 U/L (9-52); AST/SGOT 169 U/L (14-36); BLOOD UREA NITROGEN 8 mg/dL (7-17); CALCIUM 8.5 mg/dl (8.6-10.4); GFR NON-AFRICAN AMERICAN > 60
[2018-11-11] MEDS: Fluticasone-Vilanterol 100/25mcg Diskus INH SCH (08:54)
[2018-11-11] MEDS: Methadone 40 mg Tab PO SCH (09:36)
[2018-11-11] MEDS: Multiple Vitamins Tab PO SCH (09:37)
[2018-11-11] MEDS: guaiFENesin 600 mg ER Tab PO SCH ×2 (09:37→19:36)
[2018-11-11] MEDS: Pantoprazole 40 mg EC Tab PO SCH (09:37)
[2018-11-11 22:47] LABS: BARBITURATES, UR NEGATIVE (NEGATIVE); BENZODIAZEPINES, UR NEGATIVE (NEGATIVE); OPIATES, UR NEGATIVE (NEGATIVE); PHENCYCLIDINE, UR NEGATIVE (NEGATIVE)
--- NOTE | 2018-11-12 01:46 | CP.PCM.PCO ---
Physician Communication Note - Physician Communication Note Physician Communication Note: Please see above
[2018-11-12 07:11] LABS: BASO # 0.1 K/uL (0.0-0.2); BASO % 1.5 % (0.0-2.0); EOS # 0.2 K/uL (0.0-0.7); EOS % 3.9 % (0.0-4.0); HEMOGLOBIN 14.9 g/dL (11.0-16.0); LYMPH # 1.9 K/uL (1.0-4.3); LYMPH % 29.9 % (20.0-40.0); MEAN CELL VOLUME 100.5 fL (81.0-99.0); MEAN CORPUSCULAR HGB CONC 32.9 g/dL (33.0-37.0); MEAN PLATELET VOLUME 9.2 fL (7.2-11.7); MONO % 15.5 % (0.0-10.0); NEUT # 3.1 K/uL (1.8-7.0); NEUT % 49.2 % (50.0-75.0); RBC 4.51 Mil/uL (3.80-5.20); RED CELL DISTRIBUTION WIDTH 15.6 % (11.5-14.5); WHITE BLOOD COUNT 6.4 K/uL (4.8-10.8)
[2018-11-12] MEDS: Fluticasone-Vilanterol 100/25mcg Diskus INH SCH (07:45)
[2018-11-12 07:57] LABS: ALB/GLOB RATIO 1.2 (1.0-2.1); ALBUMIN 3.5 g/dL (3.5-5.0); ALT/SGPT 147 U/L (9-52); AST/SGOT 138 U/L (14-36); BLOOD UREA NITROGEN 12 mg/dL (7-17); CALCIUM 8.8 mg/dl (8.6-10.4); GFR NON-AFRICAN AMERICAN > 60
[2018-11-12 08:40] LABS: HEPATITIS B SURFACE AG Negative (NEGATIVE)
[2018-11-12 08:45] LABS: HEPATITIS A IGM NEGATIVE (NEGATIVE); HEPATITIS B CORE AB NEGATIVE (NEGATIVE)
[2018-11-12] MEDS: Pantoprazole 40 mg EC Tab PO SCH (09:32)
[2018-11-12] MEDS: Methadone 40 mg Tab PO SCH (09:32)
[2018-11-12] MEDS: Multiple Vitamins Tab PO SCH (09:33)
[2018-11-12] MEDS: guaiFENesin 600 mg ER Tab PO SCH ×2 (09:33→17:36)
[2018-11-12 10:08] LABS: HEPATITIS C ANTIBODY REACTIVE (NEGATIVE)
--- NOTE | 2018-11-12 11:52 | CP.PCM.PN ---
Subjective - Date & Time of Evaluation Date of Evaluation: 11/12/18 Time of Evaluation: 10:30 - Subjective Subjective: PGY-1 Medicine Progress Note for Dr. Berry Patient was seen and examined today at bedside in no acute distress. Nurse reports no overnight events. Patient report feeling great improvement after receiving Klonopin dose yesterday. She is overall feeling better, but is anxious to leave the hospital but understands why she must stay since she needs the supplemental oxygen. She was amendable to a pre- post- walk today, but got tired and short of breath after 3 min. Denies headache, chest pain, abdominal pain, fever, numbness, tingling, nausea, vomiting, constipation, diarrhea. Her appetite is improving but she is still not eating 3 full meals daily. At least one meal a day goes mostly untouched from lack of appetite. Objective - Vital Signs/Intake and Output Vital Signs (last 24 hours): Temp Pulse Resp BP Pulse Ox 97.7 F 61 20 97/68 L 96 11/12/18 08:00 11/12/18 08:00 11/12/18 08:00 11/12/18 08:00 11/12/18 08:00 Intake and Output: 11/12/18 11/12/18 06:59 18:59 Intake Total 240 Balance 240 - Medications Medications: Current Medications Albuterol (Ventolin Hfa 90 Mcg/Actuation (8 G)) 1 puff INH RQ4 PRN PRN Reason: SOB Last Admin: 11/04/18 06:57 Dose: 1 puff Albuterol/Ipratropium (Duoneb 3 Mg/0.5 Mg (3 Ml) Ud) 3 ml INH RQ2 PRN PRN Reason: Severe SOB or wheezing Last Admin: 11/07/18 08:20 Dose: 3 ml Clonazepam (Klonopin) 1 mg PO BID [facility] Last Admin: 11/12/18 09:33 Dose: 1 mg Clonidine HCl (Catapres) 0.1 mg PO Q4H PRN PRN Reason: Symptoms of alcohol withdrawl Last Admin: 11/11/18 09:58 Dose: 0.1 mg Escitalopram Oxalate (Lexapro) 10 mg PO DAILY [facility] Last Admin: 11/12/18 09:34 Dose: 10 mg Fluticasone/Vilanterol (Breo Ellipta 100-25 Mcg Inh) 1 puff INH RQD [facility] Last Admin: 11/12/18 07:45 Dose: 1 puff Folic Acid (Folic Acid) 1 mg PO DAILY [facility] Last Admin: 11/12/18 09:33 Dose: 1 mg Guaifenesin (Mucinex La) 600 mg PO BID [facility] Last Admin: 11/12/18 09:33 Dose: 600 mg Guaifenesin (Robitussin) 100 mg PO Q4H PRN PRN Reason: Cough Last Admin: 11/09/18 10:05 Dose: 100 mg Ibuprofen (Motrin Tab) 600 mg PO Q6H PRN PRN Reason: Pain, moderate (4-7) Last Admin: 11/05/18 10:00 Dose: 600 mg Methadone HCl (Methadose) 120 mg PO DAILY [facility] Last Admin: 11/12/18 09:32 Dose: 120 mg Methadone HCl (Methadone) 20 mg PO DAILY [facility] Last Admin: 11/12/18 09:33 Dose: 20 mg Mirtazapine (Remeron) 30 mg PO HS [facility] Last Admin: 11/11/18 22:07 Dose: 30 mg Multivitamins (Hexavitamin) 1 tab PO DAILY [facility] Last Admin: 11/12/18 09:33 Dose: 1 tab Nicotine (Nicoderm Cq) 1 patch TD DAILY [facility] Last Admin: 11/12/18 09:35 Dose: 1 patch Ondansetron HCl (Zofran Inj) 4 mg IM Q6H PRN PRN Reason: Nausea/Vomiting Last Admin: 11/09/18 09:45 Dose: 4 mg Pantoprazole Sodium (Protonix Ec Tab) 40 mg PO DAILY [facility] Last Admin: 11/12/18 09:32 Dose: 40 mg Thiamine HCl (Vitamin B1 Tab) 100 mg PO DAILY [facility] Last Admin: 11/12/18 09:32 Dose: 100 mg Trazodone HCl (Desyrel) 200 mg PO HS PRN PRN Reason: Insomnia Last Admin: 11/11/18 22:07 Dose: 200 mg - Labs Labs: 11/12/18 07:00 11/12/18 07:00 - Constitutional Appears: Non-toxic, No Acute Distress - Head Exam Head Exam: ATRAUMATIC, NORMOCEPHALIC - Eye Exam Eye Exam: EOMI, Normal appearance - ENT Exam ENT Exam: Mucous Membranes Moist - Respiratory Exam Respiratory Exam: Decreased Breath Sounds, Clear to Ausculation Bilateral, NORMAL BREATHING PATTERN. absent: Rales, Rhonchi, Wheezes Additional comments: 3L O2 via NC - Cardiovascular Exam Cardiovascular Exam: REGULAR RHYTHM, +S1, +S2. absent: Gallop, Rubs, Murmur - GI/Abdominal Exam GI & Abdominal Exam: Soft, Normal Bowel Sounds. absent: Tenderness - Extremities Exam Extremities Exam: Normal Capillary Refill. absent: Calf Tenderness Additional comments: peripheral pulses intact (radial, PT) - Neurological Exam Neurological Exam: Alert, Awake, Normal Gait, Oriented x3 - Psychiatric Exam Psychiatric exam: Anxious - Skin Skin Exam: Dry, Warm Additional comments: rubor Assessment and Plan - Assessment and Plan (Free Text) Assessment: 48yo F with past medical history of asthma, depression, diverticulitis, bipolar disorder, opioid abuse (on methadone) and alcohol abuse, admitted to psychiatry unit for bipolar disorder and alcohol abuse. Medicine consulted then transferred for evaluation of b/l lower extremity edema, which has now resolved. She is still having SOB and desaturating when not on supplemental O2. Plan: Oxygen desaturation with elevated d-dimer likely bilateral pulmonary fibrosis - patient snorted heroin for years prior to quitting. continues to smoke tobacco daily - CTA (11/04): neg for PE - patient failed 6 min pre- post- walk on 11/05. Was 95% pre-walk, Desat down to 77% after 4.5 min walk. - patient again failed on 11/06. Was taken off oxygen and interviewed. Desat down to 76% prior to walk. - Pulm consulted: Dr. Pond - recs appreciated - agree to d/c with home O2 - 6 minute walk today: went from 95% to 92% when NC taken off during interview. desatted to 87% and felt increaingly short of breath after three minute walk LE Edema with elevated d-dimer - resolved - d-dimer: 302 - LE Doppler (11/03): neg for DVT - XR R Foot (11/03): No acute Fx or dislocation Asthma - Duonebs 3ml INH q2h PRN - Ventolin 1 puff q4h PRN - Mucinex 600mg po bid - Guaifenesin 600mg po bid, 100mg po q4 prn - Breo Ellipta 1 puff daily Mood Disorder: Bipolar Depression with Anxiety - Lexapro 10mg PO daily - Mirtazapine 30mg PO HS - Trazodone 200mg PO HS PRN - Klonopin 1mg po BID Alcohol Use Disorder - US Abd (11/03): hepatomegaly/hepatic steatosis; - CT A/P (11/03): severe fatty liver - ECHO (11/03): LVEF: 59.5% - Clonidine 0.1mg PO q4h PRN - Folic acid 1mg PO daily - Multivitamin 1 tab PO daily - Thiamine 100mg PO daily - Zofran 1mg IM q6 prn Opioid Use Disorder - Methadone 140mg po daily - UDS and repeat UDS pos only for Methadone Nicotine Use Disorder - Nicotine patch 14mg/day td daily PPX - DVT: Heparin 5000 U SC Q8 - GI: Protonix 40mg po daily - Diet: Regular - Ibuprofen 600mg po q6 prn Dispo: Patient will require home O2 upon discharge. SW/CM is on the case. Patient is clear for discharge per Psych and Pulm (once obtaining home O2).
[2018-11-13 07:55] LABS: BASO # 0.1 K/uL (0.0-0.2); BASO % 1.1 % (0.0-2.0); EOS # 0.2 K/uL (0.0-0.7); EOS % 3.6 % (0.0-4.0); HEMOGLOBIN 14.8 g/dL (11.0-16.0); LYMPH # 1.9 K/uL (1.0-4.3); MEAN CELL VOLUME 99.3 fL (81.0-99.0); MEAN CORPUSCULAR HEMOGLOBIN 33.4 pg (27.0-31.0); MEAN CORPUSCULAR HGB CONC 33.7 g/dL (33.0-37.0); MEAN PLATELET VOLUME 8.9 fL (7.2-11.7); MONO # 1.1 K/uL (0.0-0.8); MONO % 15.4 % (0.0-10.0); NEUT # 3.6 K/uL (1.8-7.0); NEUT % 51.9 % (50.0-75.0); RBC 4.44 Mil/uL (3.80-5.20); RED CELL DISTRIBUTION WIDTH 15.6 % (11.5-14.5); WHITE BLOOD COUNT 6.9 K/uL (4.8-10.8)
[2018-11-13] MEDS: Fluticasone-Vilanterol 100/25mcg Diskus INH SCH (07:55)
[2018-11-13 08:07] LABS: ALB/GLOB RATIO 1.2 (1.0-2.1); ALBUMIN 3.5 g/dL (3.5-5.0); ALT/SGPT 130 U/L (9-52); AST/SGOT 112 U/L (14-36); BLOOD UREA NITROGEN 14 mg/dL (7-17); CALCIUM 8.8 mg/dl (8.6-10.4); GFR NON-AFRICAN AMERICAN > 60
[2018-11-13] MEDS: Multiple Vitamins Tab PO SCH (10:04)
[2018-11-13] MEDS: Pantoprazole 40 mg EC Tab PO SCH (10:04)
[2018-11-13] MEDS: guaiFENesin 600 mg ER Tab PO SCH (10:04)
[2018-11-13] MEDS: Methadone 40 mg Tab PO SCH (10:06)
--- NOTE | 2018-11-13 11:34 | CP.PCM.PN ---
Subjective - Date & Time of Evaluation Date of Evaluation: 11/13/18 Time of Evaluation: 10:15 - Subjective Subjective: PGY-1 Medicine Progress Note for Dr. Berry Patient was seen and evaluated today sitting up in bed in no acute distress. Nurse reports no overnight events. Patient feels much better today and is feeling motivated to walk and exercise her legs. She felt unchanged when trialed on 2L O2 via NC down from 3L. Denies chest pain, headache, numbness, tingling, fever, chills. Her appetite is improving, but she continues to eat less than normal. Objective - Vital Signs/Intake and Output Vital Signs (last 24 hours): Temp Pulse Resp BP Pulse Ox 98.1 F 81 20 106/61 95 11/13/18 07:00 11/13/18 07:00 11/13/18 07:00 11/13/18 07:00 11/13/18 07:00 Intake and Output: 11/13/18 11/13/18 06:59 18:59 Intake Total 240 Balance 240 - Medications Medications: Current Medications Albuterol (Ventolin Hfa 90 Mcg/Actuation (8 G)) 1 puff INH RQ4 PRN PRN Reason: SOB Last Admin: 11/04/18 06:57 Dose: 1 puff Albuterol/Ipratropium (Duoneb 3 Mg/0.5 Mg (3 Ml) Ud) 3 ml INH RQ2 PRN PRN Reason: Severe SOB or wheezing Last Admin: 11/07/18 08:20 Dose: 3 ml Clonazepam (Klonopin) 1 mg PO BID [facility] Last Admin: 11/13/18 10:04 Dose: 1 mg Clonidine HCl (Catapres) 0.1 mg PO Q4H PRN PRN Reason: Symptoms of alcohol withdrawl Last Admin: 11/11/18 09:58 Dose: 0.1 mg Escitalopram Oxalate (Lexapro) 10 mg PO DAILY [facility] Last Admin: 11/13/18 10:04 Dose: 10 mg Fluticasone/Vilanterol (Breo Ellipta 100-25 Mcg Inh) 1 puff INH RQD [facility] Last Admin: 11/13/18 07:55 Dose: 1 puff Folic Acid (Folic Acid) 1 mg PO DAILY [facility] Last Admin: 11/13/18 10:04 Dose: 1 mg Guaifenesin (Mucinex La) 600 mg PO BID [facility] Last Admin: 11/13/18 10:04 Dose: 600 mg Guaifenesin (Robitussin) 100 mg PO Q4H PRN PRN Reason: Cough Last Admin: 11/09/18 10:05 Dose: 100 mg Ibuprofen (Motrin Tab) 600 mg PO Q6H PRN PRN Reason: Pain, moderate (4-7) Last Admin: 11/05/18 10:00 Dose: 600 mg Methadone HCl (Methadose) 120 mg PO DAILY [facility] Last Admin: 11/13/18 10:06 Dose: 120 mg Methadone HCl (Methadone) 20 mg PO DAILY [facility] Last Admin: 11/13/18 10:04 Dose: 20 mg Mirtazapine (Remeron) 30 mg PO HS [facility] Last Admin: 11/12/18 22:39 Dose: 30 mg Multivitamins (Hexavitamin) 1 tab PO DAILY [facility] Last Admin: 11/13/18 10:04 Dose: 1 tab Nicotine (Nicoderm Cq) 1 patch TD DAILY [facility] Last Admin: 11/13/18 10:05 Dose: 1 patch Ondansetron HCl (Zofran Inj) 4 mg IM Q6H PRN PRN Reason: Nausea/Vomiting Last Admin: 11/09/18 09:45 Dose: 4 mg Pantoprazole Sodium (Protonix Ec Tab) 40 mg PO DAILY [facility] Last Admin: 11/13/18 10:04 Dose: 40 mg Thiamine HCl (Vitamin B1 Tab) 100 mg PO DAILY [facility] Last Admin: 11/13/18 10:04 Dose: 100 mg Trazodone HCl (Desyrel) 200 mg PO HS PRN PRN Reason: Insomnia Last Admin: 11/12/18 22:39 Dose: 200 mg - Labs Labs: 11/13/18 07:36 11/13/18 07:36 - Constitutional Appears: Non-toxic, No Acute Distress - Head Exam Head Exam: ATRAUMATIC, NORMOCEPHALIC - Eye Exam Eye Exam: EOMI, Normal appearance - ENT Exam ENT Exam: Mucous Membranes Moist - Respiratory Exam Respiratory Exam: Decreased Breath Sounds, Clear to Ausculation Bilateral. absent: Rales, Rhonchi, Wheezes Additional comments: 2L O2 via NC - Cardiovascular Exam Cardiovascular Exam: REGULAR RHYTHM, +S1, +S2. absent: Gallop, Rubs, Murmur - GI/Abdominal Exam GI & Abdominal Exam: Soft, Normal Bowel Sounds. absent: Tenderness - Extremities Exam Extremities Exam: Normal Capillary Refill. absent: Calf Tenderness Additional comments: peripheral pulses intact (radial, DP) - Neurological Exam Neurological Exam: Alert, Awake, Normal Gait, Oriented x3 - Psychiatric Exam Psychiatric exam: Anxious - Skin Skin Exam: Dry, Warm Additional comments: rubor Assessment and Plan - Assessment and Plan (Free Text) Assessment: 48yo F with past medical history of asthma, depression, diverticulitis, bipolar disorder, opioid abuse (on methadone) and alcohol abuse, admitted to psychiatry unit for bipolar disorder and alcohol abuse. Medicine consulted then transferred for evaluation of b/l lower extremity edema, which has now resolved. She is still having SOB and desaturating when not on supplemental O2. Plan: Oxygen desaturation with elevated d-dimer likely bilateral pulmonary fibrosis - patient snorted heroin for years prior to quitting. continues to smoke tobacco daily - CTA (11/04): neg for PE - patient failed 6 min pre- post- walk on 11/05. Was 95% pre-walk, Desat down to 77% after 4.5 min walk. - patient again failed on 11/06. Was taken off oxygen and interviewed. Desat down to 76% prior to walk. - Pulm consulted: Dr. Pond - recs appreciated - agree to d/c with home O2 - 6 minute walk today: desatted from 97% on 2L to 94% immediately when removed O2. desatted to 86% after 6 minute walk with increasing shortness of breath and tripoding upon returning to bed LE Edema with elevated d-dimer - resolved - d-dimer: 302 - LE Doppler (11/03): neg for DVT - XR R Foot (11/03): No acute Fx or dislocation Asthma - Duonebs 3ml INH q2h PRN - Ventolin 1 puff q4h PRN - Mucinex 600mg po bid - Guaifenesin 100mg po q4 prn - Breo Ellipta 1 puff daily Mood Disorder: Bipolar Depression with Anxiety - Lexapro 10mg PO daily - Mirtazapine 30mg PO HS - Trazodone 200mg PO HS PRN - Klonopin 1mg po BID Alcohol Use Disorder - US Abd (11/03): hepatomegaly/hepatic steatosis; - CT A/P (11/03): severe fatty liver - ECHO (11/03): LVEF: 59.5% - Clonidine 0.1mg PO q4h PRN - Folic acid 1mg PO daily - Multivitamin 1 tab PO daily - Thiamine 100mg PO daily - Zofran 1mg IM q6 prn Opioid Use Disorder - Methadone 140mg po daily - UDS and repeat UDS pos only for Methadone Nicotine Use Disorder - Nicotine patch 14mg/day td daily PPX - DVT: Heparin 5000 U SC Q8 - GI: Protonix 40mg po daily - Diet: Regular - Ibuprofen 600mg po q6 prn Dispo: Patient will require home O2 upon discharge. SW/CM is on the case. Patient is clear for discharge per Psych and Pulm (once obtaining home O2). d/w Dr. Kristi Gaming PGY-1
[2018-11-14 07:45] LABS: BASO # 0.1 K/uL (0.0-0.2); BASO % 1.2 % (0.0-2.0); EOS # 0.2 K/uL (0.0-0.7); HEMOGLOBIN 14.6 g/dL (11.0-16.0); LYMPH % 26.4 % (20.0-40.0); MEAN CELL VOLUME 99.7 fL (81.0-99.0); MEAN CORPUSCULAR HEMOGLOBIN 33.9 pg (27.0-31.0); MEAN PLATELET VOLUME 9.2 fL (7.2-11.7); MONO # 1.1 K/uL (0.0-0.8); MONO % 13.8 % (0.0-10.0); NEUT # 4.2 K/uL (1.8-7.0); NEUT % 55.6 % (50.0-75.0); RBC 4.32 Mil/uL (3.80-5.20); RED CELL DISTRIBUTION WIDTH 15.6 % (11.5-14.5); WHITE BLOOD COUNT 7.6 K/uL (4.8-10.8)
[2018-11-14] MEDS: Fluticasone-Vilanterol 100/25mcg Diskus INH SCH (07:50)
[2018-11-14 08:05] LABS: ALB/GLOB RATIO 1.2 (1.0-2.1); ALBUMIN 3.6 g/dL (3.5-5.0); ALT/SGPT 129 U/L (9-52); AST/SGOT 110 U/L (14-36); BLOOD UREA NITROGEN 14 mg/dL (7-17); CALCIUM 8.6 mg/dl (8.6-10.4); GFR NON-AFRICAN AMERICAN > 60
[2018-11-14] MEDS: Methadone 40 mg Tab PO SCH (09:23)
[2018-11-14] MEDS: Pantoprazole 40 mg EC Tab PO SCH (09:23)
[2018-11-14] MEDS: Multiple Vitamins Tab PO SCH (09:23)
--- NOTE | 2018-11-14 12:48 | CP.PCM.PN ---
Subjective - Date & Time of Evaluation Date of Evaluation: 11/14/18 Time of Evaluation: 13:00 - Subjective Subjective: PGY-1 Medicine Progress Note for Dr. Berry Patient was seen and evaluated today in bed in no acute distress. Nurse reports no overnight events. Patient has been trying to walk more in the hallways and is comfortable on 2L O2 via NC. Denies chest pain, headache, numbness, tingling, fever, chills. Her appetite is improving, but she continues to eat less than normal. Objective - Vital Signs/Intake and Output Vital Signs (last 24 hours): Temp Pulse Resp BP Pulse Ox 98.2 F 70 20 102/66 93 L 11/14/18 07:19 11/14/18 07:19 11/14/18 07:19 11/14/18 07:19 11/14/18 07:19 Intake and Output: 11/14/18 11/14/18 06:59 18:59 Intake Total 590 Balance 590 - Medications Medications: Current Medications Albuterol (Ventolin Hfa 90 Mcg/Actuation (8 G)) 1 puff INH RQ4 PRN PRN Reason: SOB Last Admin: 11/04/18 06:57 Dose: 1 puff Albuterol/Ipratropium (Duoneb 3 Mg/0.5 Mg (3 Ml) Ud) 3 ml INH RQ2 PRN PRN Reason: Severe SOB or wheezing Last Admin: 11/07/18 08:20 Dose: 3 ml Clonazepam (Klonopin) 1 mg PO BID [facility] Last Admin: 11/14/18 09:23 Dose: 1 mg Clonidine HCl (Catapres) 0.1 mg PO Q4H PRN PRN Reason: Symptoms of alcohol withdrawl Last Admin: 11/11/18 09:58 Dose: 0.1 mg Escitalopram Oxalate (Lexapro) 10 mg PO DAILY [facility] Last Admin: 11/14/18 09:23 Dose: 10 mg Fluticasone/Vilanterol (Breo Ellipta 100-25 Mcg Inh) 1 puff INH RQD [facility] Last Admin: 11/14/18 07:50 Dose: Not Given Folic Acid (Folic Acid) 1 mg PO DAILY [facility] Last Admin: 11/14/18 09:23 Dose: 1 mg Guaifenesin (Robitussin) 100 mg PO Q4H PRN PRN Reason: Cough Last Admin: 12/30/18 10:05 Dose: 100 mg Heparin Sodium (Porcine) (Heparin) 5,000 units SC Q8 [facility] Last Admin: 11/14/18 07:02 Dose: 5,000 units Ibuprofen (Motrin Tab) 600 mg PO Q6H PRN PRN Reason: Pain, moderate (4-7) Last Admin: 11/05/18 10:00 Dose: 600 mg Methadone HCl (Methadose) 120 mg PO DAILY [facility] Last Admin: 11/14/18 09:23 Dose: 120 mg Methadone HCl (Methadone) 20 mg PO DAILY [facility] Last Admin: 11/14/18 09:23 Dose: 20 mg Mirtazapine (Remeron) 30 mg PO HS [facility] Last Admin: 11/13/18 22:04 Dose: 30 mg Multivitamins (Hexavitamin) 1 tab PO DAILY [facility] Last Admin: 11/14/18 09:23 Dose: 1 tab Nicotine (Nicoderm Cq) 1 patch TD DAILY [facility] Last Admin: 11/14/18 09:23 Dose: 1 patch Ondansetron HCl (Zofran Inj) 4 mg IM Q6H PRN PRN Reason: Nausea/Vomiting Last Admin: 11/09/18 09:45 Dose: 4 mg Pantoprazole Sodium (Protonix Ec Tab) 40 mg PO DAILY [facility] Last Admin: 11/14/18 09:23 Dose: 40 mg Simethicone (Mylicon Chew Tab) 80 mg PO QID [facility] Thiamine HCl (Vitamin B1 Tab) 100 mg PO DAILY [facility] Last Admin: 11/14/18 09:23 Dose: 100 mg Trazodone HCl (Desyrel) 200 mg PO HS PRN PRN Reason: Insomnia Last Admin: 11/13/18 22:04 Dose: 200 mg - Labs Labs: 11/14/18 07:38 11/14/18 07:38 - Constitutional Appears: Non-toxic, No Acute Distress - Head Exam Head Exam: ATRAUMATIC, NORMOCEPHALIC - Eye Exam Eye Exam: EOMI, Normal appearance - ENT Exam ENT Exam: Mucous Membranes Moist - Respiratory Exam Respiratory Exam: Clear to Ausculation Bilateral. absent: Rales, Rhonchi, Wheezes Additional comments: 2L O2 via NC - Cardiovascular Exam Cardiovascular Exam: REGULAR RHYTHM, +S1, +S2. absent: Gallop, Rubs, Murmur - GI/Abdominal Exam GI & Abdominal Exam: Soft, Normal Bowel Sounds. absent: Tenderness - Extremities Exam Extremities Exam: Normal Capillary Refill. absent: Calf Tenderness - Neurological Exam Neurological Exam: Alert, Awake, Normal Gait, Oriented x3 - Psychiatric Exam Psychiatric exam: Anxious - Skin Skin Exam: Dry, Warm Additional comments: rubor Assessment and Plan - Assessment and Plan (Free Text) Assessment: 48yo F with past medical history of asthma, depression, diverticulitis, bipolar disorder, opioid abuse (on methadone) and alcohol abuse, admitted to psychiatry unit for bipolar disorder and alcohol abuse. Medicine consulted then transferred for evaluation of b/l lower extremity edema, which has now resolved. She is still having SOB and desaturating when not on supplemental O2. Plan: Oxygen desaturation with elevated d-dimer likely bilateral pulmonary fibrosis - patient snorted heroin for years prior to quitting. continues to smoke tobacco daily - CTA (11/04): neg for PE - patient failed 6 min pre- post- walk on 11/05. Was 95% pre-walk, Desat down to 77% after 4.5 min walk. - patient again failed on 11/06. Was taken off oxygen and interviewed. Desat down to 76% prior to walk. - Pulm consulted: Dr. Pond - recs appreciated - agree to d/c with home O2 - 6 minute walk today: desatted from 98% on 2L to 92% immediately when removed O2. desatted to 91% after 5 minute walk with increasing shortness of breath. Patient asked to stop walking before the 6 minutes were up LE Edema with elevated d-dimer - resolved - d-dimer: 302 - LE Doppler (11/03): neg for DVT - XR R Foot (11/03): No acute Fx or dislocation Asthma - Duonebs 3ml INH q2h PRN - Ventolin 1 puff q4h PRN - Mucinex 600mg po bid - Guaifenesin 100mg po q4 prn - Breo Ellipta 1 puff daily Mood Disorder: Bipolar Depression with Anxiety - Lexapro 10mg PO daily - Mirtazapine 30mg PO HS - Trazodone 200mg PO HS PRN - Klonopin 1mg po BID Alcohol Use Disorder - US Abd (11/03): hepatomegaly/hepatic steatosis; - CT A/P (11/03): severe fatty liver - ECHO (11/03): LVEF: 59.5% - Clonidine 0.1mg PO q4h PRN - Folic acid 1mg PO daily - Multivitamin 1 tab PO daily - Thiamine 100mg PO daily - Zofran 1mg IM q6 prn Opioid Use Disorder - Methadone 140mg po daily - UDS and repeat UDS pos only for Methadone Nicotine Use Disorder - Nicotine patch 14mg/day td daily PPX - DVT: Heparin 5000 U SC Q8 - GI: Protonix 40mg po daily - Diet: Regular - Ibuprofen 600mg po q6 prn Dispo: Patient will require home O2 upon discharge. SW/CM is on the case. Patient is clear for discharge per Psych and Pulm (once obtaining home O2). d/w Dr. Kristi Gaming PGY-1
[2018-11-14] MEDS: Simethicone 80 mg Chewtab PO SCH ×3 (13:27→21:44)
--- NOTE | 2018-11-15 00:20 | CP.PCM.PN ---
Subjective - Date & Time of Evaluation Date of Evaluation: 11/15/18 Time of Evaluation: 00:17 - Subjective Subjective: PGY-1 Medicine Progress Note for Dr. Berry Patient was seen and evaluated today in bed in no acute distress. Nurse reports no acute events. Patient is comfortable on 2L O2 via NC. She is resting comfortably in bed. Denies chest pain, headache, numbness, tingling, fever, chills. Objective - Vital Signs/Intake and Output Vital Signs (last 24 hours): Temp Pulse Resp BP Pulse Ox 98.5 F 76 20 104/69 95 11/14/18 15:00 11/14/18 15:00 11/14/18 15:00 11/14/18 15:00 11/14/18 15:00 Intake and Output: 11/14/18 11/15/18 18:59 06:59 Intake Total 480 340 Balance 480 340 - Medications Medications: Current Medications Albuterol (Ventolin Hfa 90 Mcg/Actuation (8 G)) 1 puff INH RQ4 PRN PRN Reason: SOB Last Admin: 11/04/18 06:57 Dose: 1 puff Albuterol/Ipratropium (Duoneb 3 Mg/0.5 Mg (3 Ml) Ud) 3 ml INH RQ2 PRN PRN Reason: Severe SOB or wheezing Last Admin: 11/07/18 08:20 Dose: 3 ml Clonazepam (Klonopin) 1 mg PO BID [facility] Last Admin: 11/14/18 17:04 Dose: 1 mg Clonidine HCl (Catapres) 0.1 mg PO Q4H PRN PRN Reason: Symptoms of alcohol withdrawl Last Admin: 11/11/18 09:58 Dose: 0.1 mg Escitalopram Oxalate (Lexapro) 10 mg PO DAILY [facility] Last Admin: 11/14/18 09:23 Dose: 10 mg Fluticasone/Vilanterol (Breo Ellipta 100-25 Mcg Inh) 1 puff INH RQD [facility] Last Admin: 11/14/18 07:50 Dose: Not Given Folic Acid (Folic Acid) 1 mg PO DAILY [facility] Last Admin: 11/14/18 09:23 Dose: 1 mg Guaifenesin (Robitussin) 100 mg PO Q4H PRN PRN Reason: Cough Last Admin: 11/09/18 10:05 Dose: 100 mg Heparin Sodium (Porcine) (Heparin) 5,000 units SC Q8 [facility] Last Admin: 11/14/18 21:43 Dose: 5,000 units Ibuprofen (Motrin Tab) 600 mg PO Q6H PRN PRN Reason: Pain, moderate (4-7) Last Admin: 11/05/18 10:00 Dose: 600 mg Methadone HCl (Methadose) 120 mg PO DAILY [facility] Last Admin: 11/14/18 09:23 Dose: 120 mg Methadone HCl (Methadone) 20 mg PO DAILY [facility] Last Admin: 11/14/18 09:23 Dose: 20 mg Mirtazapine (Remeron) 30 mg PO HS [facility] Last Admin: 11/14/18 21:44 Dose: 30 mg Multivitamins (Hexavitamin) 1 tab PO DAILY [facility] Last Admin: 11/14/18 09:23 Dose: 1 tab Nicotine (Nicoderm Cq) 1 patch TD DAILY [facility] Last Admin: 11/14/18 09:23 Dose: 1 patch Ondansetron HCl (Zofran Inj) 4 mg IM Q6H PRN PRN Reason: Nausea/Vomiting Last Admin: 11/09/18 09:45 Dose: 4 mg Pantoprazole Sodium (Protonix Ec Tab) 40 mg PO DAILY [facility] Last Admin: 11/14/18 09:23 Dose: 40 mg Simethicone (Mylicon Chew Tab) 80 mg PO QID [facility] Last Admin: 11/14/18 21:44 Dose: 80 mg Thiamine HCl (Vitamin B1 Tab) 100 mg PO DAILY [facility] Last Admin: 11/14/18 09:23 Dose: 100 mg Trazodone HCl (Desyrel) 200 mg PO HS PRN PRN Reason: Insomnia Last Admin: 11/14/18 21:44 Dose: 200 mg - Labs Labs: 11/14/18 07:38 11/14/18 07:38 - Constitutional Appears: Non-toxic, No Acute Distress - Head Exam Head Exam: ATRAUMATIC, NORMAL INSPECTION - Eye Exam Eye Exam: EOMI, Normal appearance - ENT Exam ENT Exam: Mucous Membranes Moist - Respiratory Exam Respiratory Exam: Clear to Ausculation Bilateral, NORMAL BREATHING PATTERN. absent: Rhonchi, Wheezes Additional comments: 2L NC - Cardiovascular Exam Cardiovascular Exam: REGULAR RHYTHM, +S1, +S2 - GI/Abdominal Exam GI & Abdominal Exam: Soft, Normal Bowel Sounds. absent: Tenderness - Extremities Exam Extremities Exam: absent: Pedal Edema, Tenderness - Neurological Exam Neurological Exam: Alert, Awake, Oriented x3 - Psychiatric Exam Psychiatric exam: Normal Affect, Normal Mood - Skin Skin Exam: Dry, Intact Assessment and Plan - Assessment and Plan (Free Text) Assessment: 48yo F with past medical history of asthma, depression, diverticulitis, bipolar disorder, opioid abuse (on methadone) and alcohol abuse, admitted to psychiatry unit for bipolar disorder and alcohol abuse. Medicine consulted then transferred for evaluation of b/l lower extremity edema, which has now resolved. She is still having SOB and desaturating when not on supplemental O2. Plan: Oxygen desaturation with elevated d-dimer likely bilateral pulmonary fibrosis - patient snorted heroin for years prior to quitting. continues to smoke tobacco daily - CTA (11/04): neg for PE - patient failed 6 min pre- post- walk on 11/05. Was 95% pre-walk, Desat down to 77% after 4.5 min walk. - patient again failed on 11/06. Was taken off oxygen and interviewed. Desat down to 76% prior to walk. - 6 minute walk 11/14: desatted from 98% on 2L to 92% immediately when removed O2. desatted to 91% after 5 minute walk with increasing shortness of breath. Patient asked to stop walking before the 6 minutes were up - Pulm consulted: Dr. Pond - patsy appreciated - agree to d/c with home O2 LE Edema with elevated d-dimer - resolved - d-dimer: 302 - LE Doppler (11/03): neg for DVT - XR R Foot (11/03): No acute Fx or dislocation Asthma - Duonebs 3ml INH q2h PRN - Ventolin 1 puff q4h PRN - Mucinex 600mg po bid - Guaifenesin 100mg po q4 prn - Breo Ellipta 1 puff daily Mood Disorder: Bipolar Depression with Anxiety - Lexapro 10mg PO daily - Mirtazapine 30mg PO HS - Trazodone 200mg PO HS PRN - Klonopin 1mg po BID Alcohol Use Disorder - US Abd (11/03): hepatomegaly/hepatic steatosis; - CT A/P (11/03): severe fatty liver - ECHO (11/03): LVEF: 59.5% - Clonidine 0.1mg PO q4h PRN - Folic acid 1mg PO daily - Multivitamin 1 tab PO daily - Thiamine 100mg PO daily - Zofran 1mg IM q6 prn Opioid Use Disorder - Methadone 140mg po daily - UDS and repeat UDS pos only for Methadone Nicotine Use Disorder - Nicotine patch 14mg/day td daily PPX - DVT: Heparin 5000 U SC Q8 - GI: Protonix 40mg po daily - Diet: Regular - Ibuprofen 600mg po q6 prn Dispo: Patient will require home O2 upon discharge. SW/CM is on the case. Patient is clear for discharge per Psych and Pulm (once obtaining home O2). d/w Dr. Kristi White PGY-1
[2018-11-15 07:34] LABS: BASO # 0.1 K/uL (0.0-0.2); BASO % 1.3 % (0.0-2.0); EOS # 0.2 K/uL (0.0-0.7); EOS % 2.6 % (0.0-4.0); LYMPH # 1.5 K/uL (1.0-4.3); LYMPH % 22.6 % (20.0-40.0); MEAN CELL VOLUME 99.4 fL (81.0-99.0); MEAN CORPUSCULAR HEMOGLOBIN 33.5 pg (27.0-31.0); MEAN CORPUSCULAR HGB CONC 33.7 g/dL (33.0-37.0); MEAN PLATELET VOLUME 9.8 fL (7.2-11.7); MONO # 0.8 K/uL (0.0-0.8); MONO % 11.6 % (0.0-10.0); NEUT # 4.2 K/uL (1.8-7.0); NEUT % 61.9 % (50.0-75.0); NRBC % 0.1 % (0.0-2.0); RBC 4.49 Mil/uL (3.80-5.20); RED CELL DISTRIBUTION WIDTH 15.2 % (11.5-14.5); WHITE BLOOD COUNT 6.8 K/uL (4.8-10.8)
[2018-11-15 08:23] LABS: ALB/GLOB RATIO 1.1 (1.0-2.1); ALBUMIN 3.4 g/dL (3.5-5.0); ALT/SGPT 137 U/L (9-52); AST/SGOT 138 U/L (14-36); BLOOD UREA NITROGEN 11 mg/dL (7-17); CALCIUM 8.6 mg/dl (8.6-10.4); GFR NON-AFRICAN AMERICAN > 60
[2018-11-15] MEDS: Fluticasone-Vilanterol 100/25mcg Diskus INH SCH (08:46)
[2018-11-15] MEDS: Methadone 40 mg Tab PO SCH (09:47)
[2018-11-15] MEDS: Simethicone 80 mg Chewtab PO SCH ×4 (09:48→21:27)
[2018-11-15] MEDS: Multiple Vitamins Tab PO SCH (09:48)
[2018-11-15] MEDS: Pantoprazole 40 mg EC Tab PO SCH (09:48)
--- NOTE | 2018-11-16 00:33 | CP.PCM.PN ---
<Ras White - Last Filed: 11/16/18 00:30> Subjective - Date & Time of Evaluation Date of Evaluation: 11/16/18 Time of Evaluation: 00:31 - Subjective Subjective: PGY-[address] Berry Patient seen and examined at bedside. No acute events overnight. She has no complaints at this time. Breathing comfortably on NC. Still admits to getting short of breath occasionally when walking. ROS otherwise negative. Objective - Vital Signs/Intake and Output Vital Signs (last 24 hours): Temp Pulse Resp BP Pulse Ox 98.4 F 101 H 22 113/78 96 11/15/18 17:35 11/15/18 17:35 11/15/18 17:35 11/15/18 17:35 11/15/18 17:35 Intake and Output: 11/15/18 11/16/18 18:59 06:59 Intake Total 900 Balance 900 - Medications Medications: Current Medications Albuterol (Ventolin Hfa 90 Mcg/Actuation (8 G)) 1 puff INH RQ4 PRN PRN Reason: SOB Last Admin: 11/04/18 06:57 Dose: 1 puff Albuterol/Ipratropium (Duoneb 3 Mg/0.5 Mg (3 Ml) Ud) 3 ml INH RQ2 PRN PRN Reason: Severe SOB or wheezing Last Admin: 11/07/18 08:20 Dose: 3 ml Clonazepam (Klonopin) 1 mg PO BID [facility] Last Admin: 11/15/18 17:54 Dose: 1 mg Clonidine HCl (Catapres) 0.1 mg PO Q4H PRN PRN Reason: Symptoms of alcohol withdrawl Last Admin: 11/11/18 09:58 Dose: 0.1 mg Escitalopram Oxalate (Lexapro) 10 mg PO DAILY [facility] Last Admin: 11/15/18 09:48 Dose: 10 mg Fluticasone/Vilanterol (Breo Ellipta 100-25 Mcg Inh) 1 puff INH RQD [facility] Last Admin: 11/15/18 08:46 Dose: 1 puff Folic Acid (Folic Acid) 1 mg PO DAILY [facility] Last Admin: 11/15/18 09:47 Dose: 1 mg Guaifenesin (Robitussin) 100 mg PO Q4H PRN PRN Reason: Cough Last Admin: 11/09/18 10:05 Dose: 100 mg Heparin Sodium (Porcine) (Heparin) 5,000 units SC Q8 [facility] Last Admin: 11/15/18 21:26 Dose: 5,000 units Ibuprofen (Motrin Tab) 600 mg PO Q6H PRN PRN Reason: Pain, moderate (4-7) Last Admin: 11/05/18 10:00 Dose: 600 mg Methadone HCl (Methadose) 120 mg PO DAILY [facility] Last Admin: 11/15/18 09:47 Dose: 120 mg Methadone HCl (Methadone) 20 mg PO DAILY [facility] Last Admin: 11/15/18 09:47 Dose: 20 mg Mirtazapine (Remeron) 30 mg PO HS [facility] Last Admin: 11/15/18 21:27 Dose: 30 mg Multivitamins (Hexavitamin) 1 tab PO DAILY [facility] Last Admin: 11/15/18 09:48 Dose: 1 tab Nicotine (Nicoderm Cq) 1 patch TD DAILY [facility] Last Admin: 11/15/18 09:54 Dose: 1 patch Ondansetron HCl (Zofran Inj) 4 mg IM Q6H PRN PRN Reason: Nausea/Vomiting Last Admin: 11/09/18 09:45 Dose: 4 mg Pantoprazole Sodium (Protonix Ec Tab) 40 mg PO DAILY [facility] Last Admin: 11/15/18 09:48 Dose: 40 mg Simethicone (Mylicon Chew Tab) 80 mg PO QID [facility] Last Admin: 11/15/18 21:27 Dose: 80 mg Thiamine HCl (Vitamin B1 Tab) 100 mg PO DAILY [facility] Last Admin: 11/15/18 09:48 Dose: 100 mg Trazodone HCl (Desyrel) 200 mg PO HS PRN PRN Reason: Insomnia Last Admin: 11/15/18 21:27 Dose: 200 mg - Labs Labs: 11/15/18 07:19 11/15/18 07:19 - Constitutional Appears: Non-toxic, No Acute Distress - Head Exam Head Exam: ATRAUMATIC, NORMOCEPHALIC Additional comments: facial swelling noted prior has improved - Eye Exam Eye Exam: EOMI - ENT Exam ENT Exam: Mucous Membranes Moist - Respiratory Exam Respiratory Exam: Clear to Ausculation Bilateral, NORMAL BREATHING PATTERN. absent: Rhonchi, Wheezes - Cardiovascular Exam Cardiovascular Exam: REGULAR RHYTHM, +S1, +S2 - GI/Abdominal Exam GI & Abdominal Exam: Soft, Normal Bowel Sounds. absent: Tenderness - Extremities Exam Extremities Exam: Normal Inspection. absent: Pedal Edema, Tenderness - Neurological Exam Neurological Exam: Alert, Awake, Oriented x3 - Psychiatric Exam Psychiatric exam: Normal Affect, Normal Mood - Skin Skin Exam: Dry, Intact, Normal Color Assessment and Plan - Assessment and Plan (Free Text) Assessment: 48yo F with past medical history of asthma, depression, diverticulitis, bipolar disorder, opioid abuse (on methadone) and alcohol abuse, admitted to psychiatry unit for bipolar disorder and alcohol abuse. Medicine consulted then transferred for evaluation of b/l lower extremity edema, which has now resolved. She is still having SOB and desaturating when not on supplemental O2. Plan: Oxygen desaturation with elevated d-dimer likely bilateral pulmonary fibrosis - patient snorted heroin for years prior to quitting. continues to smoke tobacco daily - CTA (11/04): neg for PE - patient failed 6 min pre- post- walk on 11/05. Was 95% pre-walk, Desat down to 77% after 4.5 min walk. - patient again failed on 11/06. Was taken off oxygen and interviewed. Desat down to 76% prior to walk. - 6 minute walk 11/14: desatted from 98% on 2L to 92% immediately when removed O2. desatted to 91% after 5 minute walk with increasing shortness of breath. Patient asked to stop walking before the 6 minutes were up - Pulm consulted: Dr. Pond - patsy appreciated - agree to d/c with home O2 LE Edema with elevated d-dimer - resolved - d-dimer: 302 - LE Doppler (11/03): neg for DVT - XR R Foot (11/03): No acute Fx or dislocation Asthma - Duonebs 3ml INH q2h PRN - Ventolin 1 puff q4h PRN - Mucinex 600mg po bid - Guaifenesin 100mg po q4 prn - Breo Ellipta 1 puff daily Mood Disorder: Bipolar Depression with Anxiety - Lexapro 10mg PO daily - Mirtazapine 30mg PO HS - Trazodone 200mg PO HS PRN - Klonopin 1mg po BID Alcohol Use Disorder - US Abd (11/03): hepatomegaly/hepatic steatosis; - CT A/P (11/03): severe fatty liver - ECHO (12/24): LVEF: 59.5% - Clonidine 0.1mg PO q4h PRN - Folic acid 1mg PO daily - Multivitamin 1 tab PO daily - Thiamine 100mg PO daily - Zofran 1mg IM q6 prn Opioid Use Disorder - Methadone 140mg po daily - UDS and repeat UDS pos only for Methadone Nicotine Use Disorder - Nicotine patch 14mg/day td daily PPX - DVT: Heparin 5000 U SC Q8 - GI: Protonix 40mg po daily - Diet: Regular - Ibuprofen 600mg po q6 prn Dispo: Patient will require home O2 upon discharge. SW/CM is on the case. Patient is clear for discharge per Psych and Pulm (once obtaining home O2). d/w Dr. Kristi White PGY-1 <Maude Berry V - Last Filed: 11/16/18 12:28> Objective - Vital Signs/Intake and Output Vital Signs (last 24 hours): Temp Pulse Resp BP Pulse Ox 97.8 F 63 20 101/64 95 11/16/18 08:34 11/16/18 08:34 11/16/18 08:34 11/16/18 08:34 11/16/18 08:34 Intake and Output: 11/16/18 11/16/18 06:59 18:59 Intake Total 240 Balance 240 - Medications Medications: Current Medications Albuterol (Ventolin Hfa 90 Mcg/Actuation (8 G)) 1 puff INH RQ4 PRN PRN Reason: SOB Last Admin: 11/04/18 06:57 Dose: 1 puff Albuterol/Ipratropium (Duoneb 3 Mg/0.5 Mg (3 Ml) Ud) 3 ml INH RQ2 PRN PRN Reason: Severe SOB or wheezing Last Admin: 11/07/18 08:20 Dose: 3 ml Clonazepam (Klonopin) 1 mg PO BID [facility] Last Admin: 11/16/18 09:34 Dose: 1 mg Clonidine HCl (Catapres) 0.1 mg PO Q4H PRN PRN Reason: Symptoms of alcohol withdrawl Last Admin: 11/11/18 09:58 Dose: 0.1 mg Escitalopram Oxalate (Lexapro) 10 mg PO DAILY [facility] Last Admin: 11/16/18 09:34 Dose: 10 mg Fluticasone/Vilanterol (Breo Ellipta 100-25 Mcg Inh) 1 puff INH RQD [facility] Last Admin: 11/16/18 09:40 Dose: 1 puff Folic Acid (Folic Acid) 1 mg PO DAILY [facility] Last Admin: 11/16/18 09:34 Dose: 1 mg Guaifenesin (Robitussin) 100 mg PO Q4H PRN PRN Reason: Cough Last Admin: 11/09/18 10:05 Dose: 100 mg Heparin Sodium (Porcine) (Heparin) 5,000 units SC Q8 [facility] Last Admin: 11/16/18 05:50 Dose: 5,000 units Ibuprofen (Motrin Tab) 600 mg PO Q6H PRN PRN Reason: Pain, moderate (4-7) Last Admin: 11/05/18 10:00 Dose: 600 mg Methadone HCl (Methadose) 120 mg PO DAILY [facility] Last Admin: 11/16/18 09:33 Dose: 120 mg Methadone HCl (Methadone) 20 mg PO DAILY [facility] Last Admin: 11/16/18 09:34 Dose: 20 mg Mirtazapine (Remeron) 30 mg PO HS [facility] Last Admin: 11/15/18 21:27 Dose: 30 mg Multivitamins (Hexavitamin) 1 tab PO DAILY [facility] Last Admin: 11/16/18 09:34 Dose: 1 tab Nicotine (Nicoderm Cq) 1 patch TD DAILY [facility] Last Admin: 11/16/18 09:34 Dose: 1 patch Ondansetron HCl (Zofran Inj) 4 mg IM Q6H PRN PRN Reason: Nausea/Vomiting Last Admin: 11/09/18 09:45 Dose: 4 mg Pantoprazole Sodium (Protonix Ec Tab) 40 mg PO DAILY [facility] Last Admin: 11/16/18 09:34 Dose: 40 mg Potassium Chloride (K-Dur 20 Meq Er Tab) 20 meq PO ONCE ONE Stop: 11/16/18 12:19 Simethicone (Mylicon Chew Tab) 80 mg PO QID [facility] Last Admin: 11/16/18 09:34 Dose: 80 mg Thiamine HCl (Vitamin B1 Tab) 100 mg PO DAILY [facility] Last Admin: 11/16/18 09:34 Dose: 100 mg Trazodone HCl (Desyrel) 200 mg PO HS PRN PRN Reason: Insomnia Last Admin: 11/15/18 21:27 Dose: 200 mg - Labs Labs: 11/16/18 09:31 11/16/18 09:31 Attending/Attestation - Attestation I have personally seen and examined this patient.: Yes I have fully participated in the care of the patient.: Yes I have reviewed all pertinent clinical information, including history, physical exam and plan: Yes Notes (Text): This is a 48-year-old female with a prominent asthma history, alcohol history, on maintenance methadone, smoking tobacco use history was initially admitted to the psychiatric unit was transferred out from the unit following desaturation of oxygen. During the course of hospitalization patient was psychiatrically cleared. Patient was evaluated by manager fund. Recommended for home oxygen. Patient's insurance was discontinued. Patient has attempted to call [employer] in the new year however she is still awaiting approval. I have spoken with case management over the past week we are waiting for insurance to approve for home oxygen. Patient is currently on 2 L of oxygen at bedside. Patient potassium mildly low we will replete. Patient reports that she is having a court date on Saturday for SSI and is requesting a letter I had advised her to speak with a director of social work tomorrow to drop a letter to excuse her from needed since I do not personally think she will be able to leave the hospital without home oxygen luz ng provided prior to discharge given the severity of her oxygen desaturations. Assessment/Plan 1) Hypoxia Pulmonary Fibrosis Elevated D-dimer Assessment/Plan * patient snorted heroin for years prior to quitting. continues to smoke tobacco daily (not in the hospital presently) * CTA (11/04): neg for PE * patient failed 6 min walk; noted for prominent desaturations post walk below 88%, * patient was seen and evaluated by pulm recommending for home oxygen * We are awaiting for home oxygen to be arranged for discharge planning 2) LE Edema with elevated d-dimer - resolved Assessment/Plan * d-dimer: 302 * LE Doppler (11/03): neg for DVT * XR R Foot (11/03): No acute Fx or dislocation 3) Asthma, intermittent-moderate Cough Smoker Assessment/Plan * Duonebs 3ml INH q2h PRN * Ventolin 1 puff q4h PRN shortness of breathe * Mucinex 600mg po bid * Guaifenesin 100mg po q4 prn * Breo Ellipta 1 puff daily 4) Mood Disorder: Bipolar Depression with Anxiety * Lexapro 10mg PO daily * Mirtazapine 30mg PO HS * Trazodone 200mg PO HS PRN * Klonopin 1mg po BID 5) Alcohol Use Disorder * US Abd (11/03): hepatomegaly/hepatic steatosis; - CT A/P (11/03): severe fatty liver * ECHO (11/03): LVEF: 59.5% * Clonidine 0.1mg PO q4h PRN * Folic acid 1mg PO daily * Multivitamin 1 tab PO daily * Thiamine 100mg PO daily 4) Opioid Use Disorder Methadone Maintenance dose * Methadone 140mg po daily * UDS and repeat UDS pos only for Methadone 5) Nicotine Use Disorder * Nicotine patch 14mg/day td daily 6) PPX * DVT PPx: Heparin 5000 U SC Q8 * GI: Protonix 40mg po daily * Diet: Regular * Ibuprofen 600mg po q6 prn Dispo: Patient will require home O2 upon discharge. SW/CM is on the case. Patient is clear for discharge per Psych and Pulm (once obtaining home O2).
[2018-11-16 01:17] VITALS: RESP 20
[2018-11-16] MEDS: Methadone 40 mg Tab PO SCH (09:33)
[2018-11-16] MEDS: Simethicone 80 mg Chewtab PO SCH ×4 (09:34→22:07)
[2018-11-16] MEDS: Multiple Vitamins Tab PO SCH (09:34)
[2018-11-16] MEDS: Pantoprazole 40 mg EC Tab PO SCH (09:34)
[2018-11-16 09:39] LABS: BASO # 0.1 K/uL (0.0-0.2); BASO % 1.4 % (0.0-2.0); EOS # 0.3 K/uL (0.0-0.7); HEMOGLOBIN 14.7 g/dL (11.0-16.0); LYMPH # 1.5 K/uL (1.0-4.3); LYMPH % 23.2 % (20.0-40.0); MEAN CORPUSCULAR HEMOGLOBIN 33.7 pg (27.0-31.0); MEAN CORPUSCULAR HGB CONC 33.7 g/dL (33.0-37.0); MEAN PLATELET VOLUME 9.8 fL (7.2-11.7); MONO # 0.8 K/uL (0.0-0.8); MONO % 12.7 % (0.0-10.0); NEUT # 3.8 K/uL (1.8-7.0); NEUT % 58.7 % (50.0-75.0); NRBC % 0.1 % (0.0-2.0); RBC 4.37 Mil/uL (3.80-5.20); RED CELL DISTRIBUTION WIDTH 15.4 % (11.5-14.5); WHITE BLOOD COUNT 6.4 K/uL (4.8-10.8)
[2018-11-16] MEDS: Fluticasone-Vilanterol 100/25mcg Diskus INH SCH (09:40)
[2018-11-16 10:04] LABS: ALB/GLOB RATIO 1.1 (1.0-2.1); ALBUMIN 3.4 g/dL (3.5-5.0); ALT/SGPT 145 U/L (9-52); AST/SGOT 132 U/L (14-36); BLOOD UREA NITROGEN 10 mg/dL (7-17); CALCIUM 8.5 mg/dl (8.6-10.4); GFR NON-AFRICAN AMERICAN > 60
[2018-11-16] MEDS ORDERED: Potassium Chloride 20 mEq ER Tab PO ONE (12:18)
[2018-11-17 08:03] LABS: BASO # 0.1 K/uL (0.0-0.2); BASO % 0.9 % (0.0-2.0); EOS # 0.2 K/uL (0.0-0.7); EOS % 2.7 % (0.0-4.0); HEMOGLOBIN 14.7 g/dL (11.0-16.0); LYMPH # 1.4 K/uL (1.0-4.3); LYMPH % 21.5 % (20.0-40.0); MEAN CELL VOLUME 100.2 fL (81.0-99.0); MEAN CORPUSCULAR HEMOGLOBIN 33.4 pg (27.0-31.0); MEAN CORPUSCULAR HGB CONC 33.3 g/dL (33.0-37.0); MEAN PLATELET VOLUME 8.9 fL (7.2-11.7); MONO # 0.9 K/uL (0.0-0.8); MONO % 13.4 % (0.0-10.0); NEUT % 61.5 % (50.0-75.0); NRBC % 0.1 % (0.0-2.0); RBC 4.4 Mil/uL (3.80-5.20); RED CELL DISTRIBUTION WIDTH 15.4 % (11.5-14.5); WHITE BLOOD COUNT 6.5 K/uL (4.8-10.8)
[2018-11-17 08:23] LABS: ALB/GLOB RATIO 1.2 (1.0-2.1); ALBUMIN 3.4 g/dL (3.5-5.0); ALT/SGPT 147 U/L (9-52); AST/SGOT 130 U/L (14-36); BLOOD UREA NITROGEN 9 mg/dL (7-17); CALCIUM 8.5 mg/dl (8.6-10.4); GFR NON-AFRICAN AMERICAN > 60
[2018-11-17] MEDS: Methadone 40 mg Tab PO SCH (09:20)
[2018-11-17] MEDS: Multiple Vitamins Tab PO SCH (09:20)
[2018-11-17] MEDS: Pantoprazole 40 mg EC Tab PO SCH (09:20)
[2018-11-17] MEDS: Simethicone 80 mg Chewtab PO SCH ×4 (10:50→21:46)
[2018-11-17] MEDS: Fluticasone-Vilanterol 100/25mcg Diskus INH SCH (10:56)
--- NOTE | 2018-11-17 17:25 | CP.PCM.PN ---
<Luis Rivas - Last Filed: 11/17/18 20:02> Subjective - Date & Time of Evaluation Date of Evaluation: 11/17/18 Time of Evaluation: 08:00 - Subjective Subjective: Patient seen and examined at bedside. Patient reports no acute events overnight. Patient denies any current complaints at this time. Patient observed with NC, re sting comfortably. Says she often does not wear NC. Patient states has been ambulating without NC around the hospital floor, and has not experienced SOB or chest pain. admits to mild left calf pain that started yesterday, patient believes is due to walking. Patient admits desires to go home, understands the need of home O2 for her condition. Objective - Vital Signs/Intake and Output Vital Signs (last 24 hours): Temp Pulse Resp BP Pulse Ox 98.4 F 77 20 106/72 94 L 11/17/18 16:00 11/17/18 16:00 11/17/18 16:00 11/17/18 16:00 11/17/18 16:00 Intake and Output: 11/17/18 11/17/18 06:59 18:59 Intake Total 450 240 Balance 450 240 - Medications Medications: Current Medications Albuterol (Ventolin Hfa 90 Mcg/Actuation (8 G)) 1 puff INH RQ4 PRN PRN Reason: SOB Last Admin: 11/04/18 06:57 Dose: 1 puff Albuterol/Ipratropium (Duoneb 3 Mg/0.5 Mg (3 Ml) Ud) 3 ml INH RQ2 PRN PRN Reason: Severe SOB or wheezing Last Admin: 11/07/18 08:20 Dose: 3 ml Clonazepam (Klonopin) 1 mg PO BID [facility] Last Admin: 11/17/18 09:20 Dose: 1 mg Clonidine HCl (Catapres) 0.1 mg PO Q4H PRN PRN Reason: Symptoms of alcohol withdrawl Last Admin: 11/11/18 09:58 Dose: 0.1 mg Escitalopram Oxalate (Lexapro) 10 mg PO DAILY [facility] Last Admin: 11/17/18 09:20 Dose: 10 mg Fluticasone/Vilanterol (Breo Ellipta 100-25 Mcg Inh) 1 puff INH RQD [facility] Last Admin: 11/17/18 10:56 Dose: 1 puff Folic Acid (Folic Acid) 1 mg PO DAILY [facility] Last Admin: 11/17/18 09:20 Dose: 1 mg Guaifenesin (Robitussin) 100 mg PO Q4H PRN PRN Reason: Cough Last Admin: 11/09/18 10:05 Dose: 100 mg Ibuprofen (Motrin Tab) 600 mg PO Q6H PRN PRN Reason: Pain, moderate (4-7) Last Admin: 11/05/18 10:00 Dose: 600 mg Methadone HCl (Methadose) 120 mg PO DAILY [facility] Last Admin: 11/17/18 09:20 Dose: 120 mg Methadone HCl (Methadone) 20 mg PO DAILY [facility] Last Admin: 11/17/18 09:20 Dose: 20 mg Mirtazapine (Remeron) 30 mg PO HS [facility] Last Admin: 11/16/18 22:04 Dose: 30 mg Multivitamins (Hexavitamin) 1 tab PO DAILY [facility] Last Admin: 11/17/18 09:20 Dose: 1 tab Nicotine (Nicoderm Cq) 1 patch TD DAILY [facility] Last Admin: 11/17/18 09:19 Dose: 1 patch Ondansetron HCl (Zofran Inj) 4 mg IM Q6H PRN PRN Reason: Nausea/Vomiting Last Admin: 11/09/18 09:45 Dose: 4 mg Pantoprazole Sodium (Protonix Ec Tab) 40 mg PO DAILY [facility] Last Admin: 11/17/18 09:20 Dose: 40 mg Simethicone (Mylicon Chew Tab) 80 mg PO QID [facility] Last Admin: 11/17/18 13:30 Dose: 80 mg Thiamine HCl (Vitamin B1 Tab) 100 mg PO DAILY [facility] Last Admin: 11/17/18 09:20 Dose: 100 mg Trazodone HCl (Desyrel) 200 mg PO HS PRN PRN Reason: Insomnia Last Admin: 11/16/18 22:05 Dose: 200 mg - Labs Labs: 11/17/18 07:53 11/17/18 07:53 - Constitutional Appears: Non-toxic, No Acute Distress - Head Exam Head Exam: ATRAUMATIC, NORMAL INSPECTION, NORMOCEPHALIC - Eye Exam Eye Exam: EOMI, Normal appearance - ENT Exam ENT Exam: Mucous Membranes Moist - Neck Exam Neck Exam: Full ROM - Respiratory Exam Respiratory Exam: Clear to Ausculation Bilateral, NORMAL BREATHING PATTERN - Cardiovascular Exam Cardiovascular Exam: REGULAR RHYTHM, +S1, +S2 - GI/Abdominal Exam GI & Abdominal Exam: Soft, Normal Bowel Sounds. absent: Distended, Tenderness - Extremities Exam Extremities Exam: Full ROM, Normal Inspection. absent: Pedal Edema, Tenderness - Back Exam Back Exam: Full ROM, NORMAL INSPECTION - Neurological Exam Neurological Exam: Alert, Awake, Oriented x3 - Psychiatric Exam Psychiatric exam: Normal Affect, Normal Mood - Skin Skin Exam: Dry, Intact, Normal Color, Warm Assessment and Plan - Assessment and Plan (Free Text) Plan: Oxygen desaturation with elevated d-dimer likely bilateral pulmonary fibrosis - patient snorted heroin for years prior to quitting. continues to smoke tobacco daily - CTA (11/04): neg for PE - patient failed 6 min pre- post- walk on 11/05. Was 95% pre-walk, Desat down to 77% after 4.5 min walk. - patient again failed on 11/06. Was taken off oxygen and interviewed. Desat down to 76% prior to walk. - 6 minute walk 11/14: desatted from 98% on 2L to 92% immediately when removed O2. desatted to 91% after 5 minute walk with increasing shortness of breath. Patient asked to stop walking before the 6 minutes were up - Pulm consulted: Dr. Pond - recs appreciated - agree to d/c with home O2 LE Edema with elevated d-dimer - resolved - d-dimer: 302 - LE Doppler (11/03): neg for DVT - XR R Foot (11/03): No acute Fx or dislocation Asthma - Duonebs 3ml INH q2h PRN - Ventolin 1 puff q4h PRN - Mucinex 600mg po bid - Guaifenesin 100mg po q4 prn - Breo Ellipta 1 puff daily Mood Disorder: Bipolar Depression with Anxiety - Lexapro 10mg PO daily - Mirtazapine 30mg PO HS - Trazodone 200mg PO HS PRN - Klonopin 1mg po BID Alcohol Use Disorder - US Abd (11/03): hepatomegaly/hepatic steatosis; - CT A/P (11/03): severe fatty liver - ECHO (11/03): LVEF: 59.5% - Clonidine 0.1mg PO q4h PRN - Folic acid 1mg PO daily - Multivitamin 1 tab PO daily - Thiamine 100mg PO daily - Zofran 1mg IM q6 prn Hypokalemia - K 3.5 11/16/18 -- today K 3.9 - Kdur 20 meq given x 1 - replete as needed, continue to monitor Opioid Use Disorder - Methadone 140mg po daily - UDS and repeat UDS pos only for Methadone Nicotine Use Disorder - Nicotine patch 14mg/day td daily PPX - DVT: Heparin 5000 U SC Q8 - GI: Protonix 40mg po daily - Diet: Regular - Ibuprofen 600mg po q6 prn Dispo: Patient will require home O2 upon discharge. TRE/BIJU is currently working on process of obtaining patient insurance coverage in order to obtain home O2. SW to continue finding other alternatives to provide patient with home O2 . Upon patient's request , SW to provide letter indicating patient cannot attend a court date assigned for 11/19/18 due to patient's admission to the hospital. will continue to follow up with SW and with patient. Plan discussed with Dr Kristi Rivas, PGY-1 <Maude Berry V - Last Filed: 11/18/18 12:13> Objective - Vital Signs/Intake and Output Vital Signs (last 24 hours): Temp Pulse Resp BP Pulse Ox 97.9 F 64 20 102/65 96 11/18/18 08:09 11/18/18 08:09 11/18/18 08:09 11/18/18 08:09 11/18/18 08:09 Intake and Output: 11/18/18 11/18/18 06:59 18:59 Intake Total 640 Balance 640 - Medications Medications: Current Medications Albuterol (Ventolin Hfa 90 Mcg/Actuation (8 G)) 1 puff INH RQ4 PRN PRN Reason: SOB Last Admin: 11/04/18 06:57 Dose: 1 puff Albuterol/Ipratropium (Duoneb 3 Mg/0.5 Mg (3 Ml) Ud) 3 ml INH RQ2 PRN PRN Reason: Severe SOB or wheezing Last Admin: 11/07/18 08:20 Dose: 3 ml Clonazepam (Klonopin) 1 mg PO BID [facility] Last Admin: 11/18/18 10:28 Dose: 1 mg Clonidine HCl (Catapres) 0.1 mg PO Q4H PRN PRN Reason: Symptoms of alcohol withdrawl Last Admin: 11/11/18 09:58 Dose: 0.1 mg Escitalopram Oxalate (Lexapro) 10 mg PO DAILY [facility] Last Admin: 11/18/18 10:28 Dose: 10 mg Fluticasone/Vilanterol (Breo Ellipta 100-25 Mcg Inh) 1 puff INH RQD [facility] Last Admin: 11/17/18 10:56 Dose: 1 puff Folic Acid (Folic Acid) 1 mg PO DAILY [facility] Last Admin: 11/18/18 10:28 Dose: 1 mg Guaifenesin (Robitussin) 100 mg PO Q4H PRN PRN Reason: Cough Last Admin: 11/09/18 10:05 Dose: 100 mg Ibuprofen (Motrin Tab) 600 mg PO Q6H PRN PRN Reason: Pain, moderate (4-7) Last Admin: 11/05/18 10:00 Dose: 600 mg Methadone HCl (Methadose) 120 mg PO DAILY [facility] Last Admin: 11/18/18 10:28 Dose: 120 mg Methadone HCl (Methadone) 20 mg PO DAILY [facility] Last Admin: 11/18/18 10:27 Dose: 20 mg Mirtazapine (Remeron) 30 mg PO HS [facility] Last Admin: 11/17/18 21:53 Dose: 30 mg Multivitamins (Hexavitamin) 1 tab PO DAILY [facility] Last Admin: 11/18/18 10:27 Dose: 1 tab Nicotine (Nicoderm Cq) 1 patch TD DAILY [facility] Last Admin: 11/18/18 10:28 Dose: 1 patch Ondansetron HCl (Zofran Inj) 4 mg IM Q6H PRN PRN Reason: Nausea/Vomiting Last Admin: 11/09/18 09:45 Dose: 4 mg Pantoprazole Sodium (Protonix Ec Tab) 40 mg PO DAILY [facility] Last Admin: 11/18/18 10:27 Dose: 40 mg Simethicone (Mylicon Chew Tab) 80 mg PO QID [facility] Last Admin: 11/18/18 10:37 Dose: 80 mg Thiamine HCl (Vitamin B1 Tab) 100 mg PO DAILY [facility] Last Admin: 11/18/18 10:28 Dose: 100 mg Trazodone HCl (Desyrel) 200 mg PO HS PRN PRN Reason: Insomnia Last Admin: 11/18/18 10:27 Dose: 200 mg - Labs Labs: 11/17/18 07:53 11/17/18 07:53 Attending/Attestation - Attestation I have personally seen and examined this patient.: Yes I have fully participated in the care of the patient.: Yes I have reviewed all pertinent clinical information, including history, physical exam and plan: Yes Notes (Text): Patient seen, examined, case discussed with medical facilities section director. Patient with prolonged hospitalization and has not been discharged secondary to lack of insurance for noted hypoxia. Patient requires home oxygen. Spoke with both case management social work they are aware the patient requires home oxygen prior to discharge. Patient also requested a letter for social work for pending SSI meeting on Saturday social work will provide such a letter to help facilitate the patient. No other acute complaints.
[2018-11-18] MEDS: Fluticasone-Vilanterol 100/25mcg Diskus INH SCH (08:39)
[2018-11-18] MEDS: Multiple Vitamins Tab PO SCH (10:27)
[2018-11-18] MEDS: Pantoprazole 40 mg EC Tab PO SCH (10:27)
[2018-11-18] MEDS: Methadone 40 mg Tab PO SCH (10:28)
[2018-11-18] MEDS: Simethicone 80 mg Chewtab PO SCH ×4 (10:37→22:27)
--- NOTE | 2018-11-18 11:56 | CP.PCM.PN ---
<Maude Berry V - Last Filed: 11/18/18 12:13> Objective - Vital Signs/Intake and Output Vital Signs (last 24 hours): Temp Pulse Resp BP Pulse Ox 97.9 F 64 20 102/65 96 11/18/18 08:09 11/18/18 08:09 11/18/18 08:09 11/18/18 08:09 11/18/18 08:09 Intake and Output: 11/18/18 11/18/18 06:59 18:59 Intake Total 640 Balance 640 - Medications Medications: Current Medications Albuterol (Ventolin Hfa 90 Mcg/Actuation (8 G)) 1 puff INH RQ4 PRN PRN Reason: SOB Last Admin: 11/04/18 06:57 Dose: 1 puff Albuterol/Ipratropium (Duoneb 3 Mg/0.5 Mg (3 Ml) Ud) 3 ml INH RQ2 PRN PRN Reason: Severe SOB or wheezing Last Admin: 11/07/18 08:20 Dose: 3 ml Clonazepam (Klonopin) 1 mg PO BID [facility] Last Admin: 11/18/18 10:28 Dose: 1 mg Clonidine HCl (Catapres) 0.1 mg PO Q4H PRN PRN Reason: Symptoms of alcohol withdrawl Last Admin: 11/11/18 09:58 Dose: 0.1 mg Escitalopram Oxalate (Lexapro) 10 mg PO DAILY [facility] Last Admin: 11/18/18 10:28 Dose: 10 mg Fluticasone/Vilanterol (Breo Ellipta 100-25 Mcg Inh) 1 puff INH RQD [facility] Last Admin: 11/17/18 10:56 Dose: 1 puff Folic Acid (Folic Acid) 1 mg PO DAILY [facility] Last Admin: 11/18/18 10:28 Dose: 1 mg Guaifenesin (Robitussin) 100 mg PO Q4H PRN PRN Reason: Cough Last Admin: 11/09/18 10:05 Dose: 100 mg Ibuprofen (Motrin Tab) 600 mg PO Q6H PRN PRN Reason: Pain, moderate (4-7) Last Admin: 11/05/18 10:00 Dose: 600 mg Methadone HCl (Methadose) 120 mg PO DAILY [facility] Last Admin: 11/18/18 10:28 Dose: 120 mg Methadone HCl (Methadone) 20 mg PO DAILY [facility] Last Admin: 11/18/18 10:27 Dose: 20 mg Mirtazapine (Remeron) 30 mg PO HS [facility] Last Admin: 11/17/18 21:53 Dose: 30 mg Multivitamins (Hexavitamin) 1 tab PO DAILY [facility] Last Admin: 11/18/18 10:27 Dose: 1 tab Nicotine (Nicoderm Cq) 1 patch TD DAILY [facility] Last Admin: 11/18/18 10:28 Dose: 1 patch Ondansetron HCl (Zofran Inj) 4 mg IM Q6H PRN PRN Reason: Nausea/Vomiting Last Admin: 11/09/18 09:45 Dose: 4 mg Pantoprazole Sodium (Protonix Ec Tab) 40 mg PO DAILY [facility] Last Admin: 11/18/18 10:27 Dose: 40 mg Simethicone (Mylicon Chew Tab) 80 mg PO QID [facility] Last Admin: 11/18/18 10:37 Dose: 80 mg Thiamine HCl (Vitamin B1 Tab) 100 mg PO DAILY [facility] Last Admin: 11/18/18 10:28 Dose: 100 mg Trazodone HCl (Desyrel) 200 mg PO HS PRN PRN Reason: Insomnia Last Admin: 11/18/18 10:27 Dose: 200 mg - Labs Labs: 11/17/18 07:53 11/17/18 07:53 Attending/Attestation - Attestation I have personally seen and examined this patient.: Yes I have fully participated in the care of the patient.: Yes I have reviewed all pertinent clinical information, including history, physical exam and plan: Yes Notes (Text): Patient seen, examined case discussed with medical doctor. Patient is awaiting home oxygen prior to discharge patient noted she still continued to have no noted oxygen saturations on exertion noted to be below 81% while off oxygen. Patient social aware that patient requires home oxygen prior to discharge. Patient does not have any active insurance. Continue to monitor. <Pam Gaming Y - Last Filed: 11/18/18 15:31> Subjective - Date & Time of Evaluation Date of Evaluation: 11/18/18 Time of Evaluation: 10:30 - Subjective Subjective: PGY-1 Medicine Progress Note for Dr. Berry Patient was seen and examined today at bedside in no acute distress. Nurse reports no overnight events. Patient has no new complaints and is calling the insurance company for updates. Denies headache, dizziness, chest pain, abdominal pain. Her appetite is improving, but she's still short of breath without supplemental oxygen. Objective - Vital Signs/Intake and Output Vital Signs (last 24 hours): Temp Pulse Resp BP Pulse Ox 97.9 F 64 20 102/65 96 11/18/18 08:09 11/18/18 08:09 11/18/18 08:09 11/18/18 08:09 11/18/18 08:09 Intake and Output: 11/18/18 11/18/18 06:59 18:59 Intake Total 640 Balance 640 - Medications Medications: Current Medications Albuterol (Ventolin Hfa 90 Mcg/Actuation (8 G)) 1 puff INH RQ4 PRN PRN Reason: SOB Last Admin: 11/04/18 06:57 Dose: 1 puff Albuterol/Ipratropium (Duoneb 3 Mg/0.5 Mg (3 Ml) Ud) 3 ml INH RQ2 PRN PRN Reason: Severe SOB or wheezing Last Admin: 11/07/18 08:20 Dose: 3 ml Clonazepam (Klonopin) 1 mg PO BID [facility] Last Admin: 11/18/18 10:28 Dose: 1 mg Clonidine HCl (Catapres) 0.1 mg PO Q4H PRN PRN Reason: Symptoms of alcohol withdrawl Last Admin: 11/11/18 09:58 Dose: 0.1 mg Escitalopram Oxalate (Lexapro) 10 mg PO DAILY [facility] Last Admin: 11/18/18 10:28 Dose: 10 mg Fluticasone/Vilanterol (Breo Ellipta 100-25 Mcg Inh) 1 puff INH RQD [facility] Last Admin: 11/17/18 10:56 Dose: 1 puff Folic Acid (Folic Acid) 1 mg PO DAILY [facility] Last Admin: 11/18/18 10:28 Dose: 1 mg Guaifenesin (Robitussin) 100 mg PO Q4H PRN PRN Reason: Cough Last Admin: 11/09/18 10:05 Dose: 100 mg Ibuprofen (Motrin Tab) 600 mg PO Q6H PRN PRN Reason: Pain, moderate (4-7) Last Admin: 11/05/18 10:00 Dose: 600 mg Methadone HCl (Methadose) 120 mg PO DAILY [facility] Last Admin: 11/18/18 10:28 Dose: 120 mg Methadone HCl (Methadone) 20 mg PO DAILY [facility] Last Admin: 11/18/18 10:27 Dose: 20 mg Mirtazapine (Remeron) 30 mg PO HS [facility] Last Admin: 11/17/18 21:53 Dose: 30 mg Multivitamins (Hexavitamin) 1 tab PO DAILY [facility] Last Admin: 11/18/18 10:27 Dose: 1 tab Nicotine (Nicoderm Cq) 1 patch TD DAILY [facility] Last Admin: 11/18/18 10:28 Dose: 1 patch Ondansetron HCl (Zofran Inj) 4 mg IM Q6H PRN PRN Reason: Nausea/Vomiting Last Admin: 11/09/18 09:45 Dose: 4 mg Pantoprazole Sodium (Protonix Ec Tab) 40 mg PO DAILY [facility] Last Admin: 11/18/18 10:27 Dose: 40 mg Simethicone (Mylicon Chew Tab) 80 mg PO QID [facility] Last Admin: 11/18/18 10:37 Dose: 80 mg Thiamine HCl (Vitamin B1 Tab) 100 mg PO DAILY [facility] Last Admin: 11/18/18 10:28 Dose: 100 mg Trazodone HCl (Desyrel) 200 mg PO HS PRN PRN Reason: Insomnia Last Admin: 11/18/18 10:27 Dose: 200 mg - Labs Labs: 11/17/18 07:53 11/17/18 07:53 - Constitutional Appears: Well, No Acute Distress - Head Exam Head Exam: ATRAUMATIC, NORMOCEPHALIC - Eye Exam Eye Exam: EOMI, Normal appearance - ENT Exam ENT Exam: Mucous Membranes Moist - Respiratory Exam Respiratory Exam: Clear to Ausculation Bilateral, NORMAL BREATHING PATTERN. absent: Rales, Rhonchi, Wheezes Additional comments: 3L O2 via [place] - Cardiovascular Exam Cardiovascular Exam: REGULAR RHYTHM, +S1, +S2 - GI/Abdominal Exam GI & Abdominal Exam: Soft, Normal Bowel Sounds. absent: Tenderness - Extremities Exam Extremities Exam: Normal Capillary Refill. absent: Calf Tenderness - Neurological Exam Neurological Exam: Alert, Awake, Normal Gait, Oriented x3 - Psychiatric Exam Psychiatric exam: Normal Affect, Normal Mood - Skin Skin Exam: Dry, Intact, Normal Color, Warm Assessment and Plan - Assessment and Plan (Free Text) Assessment: 48yo F with past medical history of asthma, depression, diverticulitis, bipolar disorder, opioid abuse (on methadone) and alcohol abuse, admitted to psychiatry unit for bipolar disorder and alcohol abuse. Medicine consulted then transferred for evaluation of b/l lower extremity edema, which has now resolved. She is still having SOB and desaturating when not on supplemental O2. Plan: Oxygen desaturation with elevated d-dimer likely bilateral pulmonary fibrosis - patient snorted heroin for years prior to quitting. continues to smoke tobacco daily - CTA (11/04): neg for PE - patient failed 6 min pre- post- walk on 11/05. Was 95% pre-walk, Desat down to 77% after 4.5 min walk. - patient again failed on 11/06. Was taken off oxygen and interviewed. Desat down to 76% prior to walk. - Pulm consulted: Dr. Pond - patsy appreciated - agree to d/c with home O2 - 6 minute walk today: desatted from 94% on 3L to 91% immediately when removed O2. desatted to 81% after 6 minute walk without difficulty breathing, sweating, wheezing. immediately returned to 90s when NC reapplied. Patient reported inability to tolerate 2L over weekend. LE Edema with elevated d-dimer - resolved - d-dimer: 302 - LE Doppler (11/03): neg for DVT - XR R Foot (11/03): No acute Fx or dislocation Asthma - Duonebs 3ml INH q2h PRN - Ventolin 1 puff q4h PRN - Mucinex 600mg po bid - Guaifenesin 100mg po q4 prn - Breo Ellipta 1 puff daily Mood Disorder: Bipolar Depression with Anxiety - Lexapro 10mg PO daily - Mirtazapine 30mg PO HS - Trazodone 200mg PO HS PRN - Klonopin 1mg po BID Alcohol Use Disorder - US Abd (11/03): hepatomegaly/hepatic steatosis; - CT A/P (11/03): severe fatty liver - ECHO (11/03): LVEF: 59.5% - Clonidine 0.1mg PO q4h PRN - Folic acid 1mg PO daily - Multivitamin 1 tab PO daily - Thiamine 100mg PO daily - Zofran 1mg IM q6 prn Opioid Use Disorder - Methadone 140mg po daily - UDS and repeat UDS pos only for Methadone Nicotine Use Disorder - Nicotine patch 14mg/day td daily History Hepatitis C - Per patient, previously treated and cleared - f/u HepC subtyping PPx - DVT: Heparin 5000 U SC Q8 - GI: Protonix 40mg po daily - Diet: Regular - Ibuprofen 600mg po q6 prn - Simethecone 80mg po qid Dispo: Patient will require home O2 upon discharge. SW/CM is on the case. Patient is clear for discharge per Psych and Pulm (once obtaining home O2). d/w Dr. Kristi Gaming PGY-1
[2018-11-19 07:23] LABS: BASO # 0.1 K/uL (0.0-0.2); BASO % 1.4 % (0.0-2.0); EOS # 0.2 K/uL (0.0-0.7); EOS % 3.3 % (0.0-4.0); HEMOGLOBIN 14.3 g/dL (11.0-16.0); LYMPH # 2.2 K/uL (1.0-4.3); LYMPH % 30.4 % (20.0-40.0); MEAN CELL VOLUME 99.6 fL (81.0-99.0); MEAN CORPUSCULAR HEMOGLOBIN 33.5 pg (27.0-31.0); MEAN CORPUSCULAR HGB CONC 33.7 g/dL (33.0-37.0); MEAN PLATELET VOLUME 9.5 fL (7.2-11.7); MONO # 0.9 K/uL (0.0-0.8); MONO % 12.6 % (0.0-10.0); NEUT # 3.8 K/uL (1.8-7.0); NEUT % 52.3 % (50.0-75.0); NRBC % 0.1 % (0.0-2.0); RBC 4.28 Mil/uL (3.80-5.20); RED CELL DISTRIBUTION WIDTH 14.8 % (11.5-14.5); WHITE BLOOD COUNT 7.3 K/uL (4.8-10.8)
[2018-11-19 07:40] LABS: ALB/GLOB RATIO 1.1 (1.0-2.1); ALBUMIN 3.3 g/dL (3.5-5.0); ALT/SGPT 135 U/L (9-52); AST/SGOT 107 U/L (14-36); BLOOD UREA NITROGEN 9 mg/dL (7-17); CALCIUM 8.5 mg/dl (8.6-10.4); GFR NON-AFRICAN AMERICAN > 60
[2018-11-19] MEDS ORDERED: Potassium Chloride 20 mEq ER Tab PO ONE (09:30)
[2018-11-19] MEDS: Methadone 40 mg Tab PO SCH (09:43)
[2018-11-19] MEDS: Simethicone 80 mg Chewtab PO SCH ×4 (09:45→21:46)
[2018-11-19] MEDS: Pantoprazole 40 mg EC Tab PO SCH (09:46)
[2018-11-19] MEDS: Multiple Vitamins Tab PO SCH (09:47)
[2018-11-19] MEDS: Fluticasone-Vilanterol 100/25mcg Diskus INH SCH (14:03)
--- NOTE | 2018-11-19 15:47 | CP.PCM.PN ---
Subjective - Date & Time of Evaluation Date of Evaluation: 11/19/18 Time of Evaluation: 13:00 - Subjective Subjective: PGY-1 Medicine Progress Note for Dr. Dyer Patient was seen and examined at bedside in no acute distress. Nurse reports no overnight events. Patient complains of poor sleep due to another patient being unruly overnight. She refused to go for a 6 min walk today in favor of sleeping. Denies chest pain, headache, abdominal pain, difficulty urinating, n/v/c/d. Objective - Vital Signs/Intake and Output Vital Signs (last 24 hours): Temp Pulse Resp BP Pulse Ox 97.9 F 65 20 100/65 98 11/19/18 08:14 11/19/18 08:14 11/19/18 08:14 11/19/18 08:14 11/19/18 08:14 Intake and Output: 11/19/18 11/19/18 06:59 18:59 Intake Total 1000 500 Balance 1000 500 - Medications Medications: Current Medications Albuterol (Ventolin Hfa 90 Mcg/Actuation (8 G)) 1 puff INH RQ4 PRN PRN Reason: SOB Last Admin: 11/04/18 06:57 Dose: 1 puff Albuterol/Ipratropium (Duoneb 3 Mg/0.5 Mg (3 Ml) Ud) 3 ml INH RQ4 [facility] Clonazepam (Klonopin) 1 mg PO BID [facility] Last Admin: 11/19/18 09:47 Dose: 1 mg Clonidine HCl (Catapres) 0.1 mg PO Q4H PRN PRN Reason: Symptoms of alcohol withdrawl Last Admin: 11/11/18 09:58 Dose: 0.1 mg Escitalopram Oxalate (Lexapro) 10 mg PO DAILY [facility] Last Admin: 11/19/18 09:46 Dose: 10 mg Fluticasone/Vilanterol (Breo Ellipta 100-25 Mcg Inh) 1 puff INH RQD [facility] Last Admin: 11/19/18 14:03 Dose: 1 puff Folic Acid (Folic Acid) 1 mg PO DAILY [facility] Last Admin: 11/19/18 09:47 Dose: 1 mg Guaifenesin (Robitussin) 100 mg PO Q4H PRN PRN Reason: Cough Last Admin: 11/09/18 10:05 Dose: 100 mg Heparin Sodium (Porcine) (Heparin) 5,000 units SC Q8 [facility] Last Admin: 11/19/18 13:57 Dose: 5,000 units Ibuprofen (Motrin Tab) 600 mg PO Q6H PRN PRN Reason: Pain, moderate (4-7) Last Admin: 11/05/18 10:00 Dose: 600 mg Methadone HCl (Methadose) 120 mg PO DAILY [facility] Last Admin: 11/19/18 09:43 Dose: 120 mg Methadone HCl (Methadone) 20 mg PO DAILY [facility] Last Admin: 11/19/18 09:45 Dose: 20 mg Mirtazapine (Remeron) 30 mg PO HS [facility] Last Admin: 11/18/18 22:17 Dose: 30 mg Multivitamins (Hexavitamin) 1 tab PO DAILY [facility] Last Admin: 11/19/18 09:47 Dose: 1 tab Nicotine (Nicoderm Cq) 1 patch TD DAILY [facility] Last Admin: 11/19/18 09:48 Dose: 1 patch Ondansetron HCl (Zofran Inj) 4 mg IM Q6H PRN PRN Reason: Nausea/Vomiting Last Admin: 11/09/18 09:45 Dose: 4 mg Pantoprazole Sodium (Protonix Ec Tab) 40 mg PO DAILY [facility] Last Admin: 11/19/18 09:46 Dose: 40 mg Simethicone (Mylicon Chew Tab) 80 mg PO QID [facility] Last Admin: 11/19/18 13:57 Dose: 80 mg Thiamine HCl (Vitamin B1 Tab) 100 mg PO DAILY [facility] Last Admin: 11/19/18 09:45 Dose: 100 mg Trazodone HCl (Desyrel) 200 mg PO HS PRN PRN Reason: Insomnia Last Admin: 11/18/18 22:27 Dose: 200 mg - Labs Labs: 11/19/18 07:02 11/19/18 07:02 - Constitutional Appears: Well, No Acute Distress - Head Exam Head Exam: ATRAUMATIC, NORMOCEPHALIC - Eye Exam Eye Exam: EOMI, Normal appearance - ENT Exam ENT Exam: Mucous Membranes Moist - Respiratory Exam Respiratory Exam: Clear to Ausculation Bilateral, NORMAL BREATHING PATTERN. absent: Rales, Rhonchi, Wheezes Additional comments: 3L O2 via [place] - Cardiovascular Exam Cardiovascular Exam: REGULAR RHYTHM, +S1, +S2 - GI/Abdominal Exam GI & Abdominal Exam: Soft, Normal Bowel Sounds. absent: Tenderness - Extremities Exam Extremities Exam: absent: Calf Tenderness - Neurological Exam Neurological Exam: Alert, Awake, Oriented x3 - Psychiatric Exam Psychiatric exam: Anxious - Skin Skin Exam: Dry, Intact, Normal Color, Warm Assessment and Plan - Assessment and Plan (Free Text) Assessment: 48yo F with past medical history of asthma, depression, diverticulitis, bipolar disorder, opioid abuse (on methadone) and alcohol abuse, admitted to psychiatry unit for bipolar disorder and alcohol abuse. Medicine consulted then transferred for evaluation of b/l lower extremity edema, which has now resolved. She is still having SOB and desaturating when not on supplemental O2. Plan: Oxygen desaturation with elevated d-dimer likely bilateral pulmonary fibrosis - patient snorted heroin for years prior to quitting. continues to smoke tobacco daily - CTA (11/04): neg for PE - patient failed 6 min pre- post- walk on 11/05. Was 95% pre-walk, Desat down to 77% after 4.5 min walk. - patient again failed on 11/06. Was taken off oxygen and interviewed. Desat down to 76% prior to walk. - Pulm consulted: Dr. Pond - patsy appreciated - agree to d/c with home O2 - Pulm reconsulted: Dr. Damon - [place] appreciated - 6 minute walk today: refused today LE Edema with elevated d-dimer - resolved - d-dimer: 302 - LE Doppler (11/03): neg for DVT - XR R Foot (11/03): No acute Fx or dislocation Asthma - Duonebs 3ml INH q4 [facility] - Ventolin 1 puff q4h PRN - Mucinex 600mg po bid - Guaifenesin 100mg po q4 prn - Breo Ellipta 1 puff daily Mood Disorder: Bipolar Depression with Anxiety - Lexapro 10mg PO daily - Mirtazapine 30mg PO HS - Trazodone 200mg PO HS PRN - Klonopin 1mg po BID Alcohol Use Disorder - US Abd (11/03): hepatomegaly/hepatic steatosis; - CT A/P (11/03): severe fatty liver - ECHO (11/03): LVEF: 59.5% - Clonidine 0.1mg PO q4h PRN - Folic acid 1mg PO daily - Multivitamin 1 tab PO daily - Thiamine 100mg PO daily - Zofran 1mg IM q6 prn Opioid Use Disorder - Methadone 140mg po daily - UDS and repeat UDS pos only for Methadone Nicotine Use Disorder - Nicotine patch 14mg/day td daily History Hepatitis C - Per patient, previously treated and cleared - HepC Ab reactive, HCV RNA not detected, NS5a Subtype not detected PPx - DVT: Heparin 5000 U SC Q8 - GI: Protonix 40mg po daily - Diet: Regular - Ibuprofen 600mg po q6 prn - Simethecone 80mg po qid Dispo: Patient will require home O2 upon discharge. SW/CM is on the case. d/w Dr. Gomez Gaming PGY-1
[2018-11-19] MEDS: Albuterol-Ipratrop 3 mg / 0.5 (3 ml) UD INH SCH ×2 (16:11→20:59)
--- NOTE | 2018-11-19 19:32 | CP.PCM.CON ---
History of Present Illness - History of Present Illness History of Present Illness: Pulmonary Consult Note for Dr. Damon Reason for Consult: Persistent Hypoxia, hx of asthma and pulm fibrosis Patient is a 48 year old female that has been admitted to hospital since 11/03/18. Patient has a history of asthma and was a daily smoker upon til her admission to the hospital two weeks ago. She was evaluated at that time and was diagnosed with pulmonary fibrosis. She has been pending discharge with home oxygen but has not completed all necessary tests. Per medicine notes, patient failed 6 min pre- post- walk on 11/05. Was 95% pre-walk, Desat down to 77% after 4.5 min walk. patient again failed on 11/06. Was taken off oxygen and interviewed. Desat down to 76% prior to walk. Patient is currently resting comfortably in bed stating she feels well with the oxygen on, wearing NC @2L during time of interview. PMH: asthma, depression, diverticulitis, bipolar disorder, opioid abuse (on methadone) and alcohol abuse PSH: appendectomy, ovarian cystectomy, partial colectomy, multiple surgeries on R foot (ingrown toenail removal, unknown other) Family: Denies/unknown Social: opioid abuse (on methadone) and alcohol abuse. tobacco use. Denies any current IV drug use. Drinks 2 pints liquor/day. Last drink and cigarette yesterday. Unemployed, lives with mother. Allergies: Ciprofloxacin Meds: trazodone 200mg PO HS, clonazepam 1mg PO BID, geodon 80mg PO BID, Protonix 20mg PO daily, motrin 600mg PO TID, flovent 0.22mg IH daily, Lexapro 10mg PO daily, flexaril 10mg PO TID PMD: Dr. Adair Asthma hx: patient has dogs at home, only uses albuterol inhaler at home (nebulizer as needed), daily smoker, this is her first admission for asthma, never intubated. Review of Systems - Review of Systems All systems: reviewed and no additional remarkable complaints except (as per HPI) Past Patient History - Past Medical History & Family History Past Medical History?: Yes - Past Social History Smoking Status: Heavy Smoker > 10 Cigarettes Daily - CARDIAC Hx Cardiac Disorders: No Hx Hypertension: No - PULMONARY Hx Tuberculosis: No - NEUROLOGICAL HX Cerebrovascular Accident: No Hx Seizures: No - HEENT Hx HEENT Problems: No - RENAL Hx Chronic Kidney Disease: No - ENDOCRINE/METABOLIC Hx Endocrine Disorders: No - HEMATOLOGICAL/ONCOLOGICAL Hx Cancer: No Hx Human Immunodeficiency Virus (HIV): No - INTEGUMENTARY Hx Dermatological Problems: No - MUSCULOSKELETAL/RHEUMATOLOGICAL Hx Falls: No - GASTROINTESTINAL Hx Diverticulitis: Yes - GENITOURINARY/GYNECOLOGICAL Hx Sexually Transmitted Disorders: No - PSYCHIATRIC Hx Substance Use: Yes - SURGICAL HISTORY Hx Appendectomy: Yes - ANESTHESIA Hx Anesthesia: Yes Hx Anesthesia Reactions: No Hx Malignant Hyperthermia: No Meds Home Medications: Home Medication List Medication Instructions Recorded Confirmed Type Escitalopram [Lexapro] 10 mg PO DAILY #30 tab 11/07/18 Rx Mirtazapine [Remeron] 30 mg PO HS #30 tab 11/07/18 Rx traZODone [Desyrel] 100 mg PO HS PRN #60 tab 11/07/18 Rx Allergies/Adverse Reactions: Allergies Allergy/AdvReac Type Severity Reaction Status Date / Time ciprofloxacin Allergy Verified 11/03/18 03:14 - Medications Medications: Current Medications Albuterol (Ventolin Hfa 90 Mcg/Actuation (8 G)) 1 puff INH RQ4 PRN PRN Reason: SOB Last Admin: 11/04/18 06:57 Dose: 1 puff Albuterol/Ipratropium (Duoneb 3 Mg/0.5 Mg (3 Ml) Ud) 3 ml INH RQ4 [facility] Last Admin: 11/19/18 16:11 Dose: 3 ml Clonazepam (Klonopin) 1 mg PO BID [facility] Last Admin: 11/19/18 18:19 Dose: 1 mg Clonidine HCl (Catapres) 0.1 mg PO Q4H PRN PRN Reason: Symptoms of alcohol withdrawl Last Admin: 11/11/18 09:58 Dose: 0.1 mg Escitalopram Oxalate (Lexapro) 10 mg PO DAILY [facility] Last Admin: 11/19/18 09:46 Dose: 10 mg Fluticasone/Vilanterol (Breo Ellipta 100-25 Mcg Inh) 1 puff INH RQD [facility] Last Admin: 11/19/18 14:03 Dose: 1 puff Folic Acid (Folic Acid) 1 mg PO DAILY [facility] Last Admin: 11/19/18 09:47 Dose: 1 mg Guaifenesin (Robitussin) 100 mg PO Q4H PRN PRN Reason: Cough Last Admin: 11/09/18 10:05 Dose: 100 mg Heparin Sodium (Porcine) (Heparin) 5,000 units SC Q8 [facility] Last Admin: 11/19/18 13:57 Dose: 5,000 units Ibuprofen (Motrin Tab) 600 mg PO Q6H PRN PRN Reason: Pain, moderate (4-7) Last Admin: 11/05/18 10:00 Dose: 600 mg Methadone HCl (Methadose) 120 mg PO DAILY [facility] Last Admin: 11/19/18 09:43 Dose: 120 mg Methadone HCl (Methadone) 20 mg PO DAILY [facility] Last Admin: 11/19/18 09:45 Dose: 20 mg Mirtazapine (Remeron) 30 mg PO HS [facility] Last Admin: 11/18/18 22:17 Dose: 30 mg Multivitamins (Hexavitamin) 1 tab PO DAILY [facility] Last Admin: 11/19/18 09:47 Dose: 1 tab Nicotine (Nicoderm Cq) 1 patch TD DAILY [facility] Last Admin: 11/19/18 09:48 Dose: 1 patch Ondansetron HCl (Zofran Inj) 4 mg IM Q6H PRN PRN Reason: Nausea/Vomiting Last Admin: 11/09/18 09:45 Dose: 4 mg Pantoprazole Sodium (Protonix Ec Tab) 40 mg PO DAILY [facility] Last Admin: 11/19/18 09:46 Dose: 40 mg Simethicone (Mylicon Chew Tab) 80 mg PO QID [facility] Last Admin: 11/19/18 18:20 Dose: 80 mg Thiamine HCl (Vitamin B1 Tab) 100 mg PO DAILY [facility] Last Admin: 11/19/18 09:45 Dose: 100 mg Trazodone HCl (Desyrel) 200 mg PO HS PRN PRN Reason: Insomnia Last Admin: 11/18/18 22:27 Dose: 200 mg Physical Exam - Constitutional Appears: Non-toxic, No Acute Distress - Head Exam Head Exam: ATRAUMATIC, NORMOCEPHALIC - Eye Exam Eye Exam: Normal appearance - Respiratory Exam Respiratory Exam: Clear to Auscultation Bilateral, NORMAL BREATHING PATTERN. absent: Rales, Rhonchi, Wheezes Additional comments: 2L o2 NC - Cardiovascular Exam Cardiovascular Exam: REGULAR RHYTHM, +S1, +S2 - GI/Abdominal Exam GI & Abdominal Exam: Diminished Bowel Sounds, Soft. absent: Firm, Guarding, Rigid, Tenderness - Extremities Exam Extremities exam: Negative for: calf tenderness, pedal edema - Neurological Exam Neurological exam: Alert, Oriented x3 - Psychiatric Exam Psychiatric exam: Normal Affect, Normal Mood - Skin Skin Exam: Dry, Warm Results - Vital Signs Recent Vital Signs: Last Vital Signs Temp 98.3 F 11/19/18 16:00 Pulse 78 11/19/18 16:00 Resp 20 11/19/18 16:00 BP 110/74 11/19/18 16:00 Pulse Ox 94 L 11/19/18 16:00 - Labs Result Diagrams: 11/19/18 07:02 11/19/18 07:02 Labs: Laboratory Results - last 24 hr 11/19/18 11/19/18 07:02 07:02 WBC 7.3 RBC 4.28 Hgb 14.3 Hct 42.6 MCV 99.6 H MCH 33.5 H MCHC 33.7 RDW 14.8 H Plt Count 236 MPV 9.5 Neut % (Auto) 52.3 Lymph % (Auto) 30.4 [place] % (Auto) 12.6 H Eos % (Auto) 3.3 Baso % (Auto) 1.4 Neut # (Auto) 3.8 Lymph # (Auto) 2.2 [place] # (Auto) 0.9 H Eos # (Auto) 0.2 Baso # (Auto) 0.1 Sodium 138 Potassium 3.5 L Chloride 101 Carbon Dioxide 32 H Anion Gap 9 L BUN 9 Creatinine 0.5 L Est GFR ( Amer) > 60 Est GFR (Non-Af Amer) > 60 Random Glucose 98 Calcium 8.5 L Total Bilirubin 0.4 AST 107 H ALT 135 H Alkaline Phosphatase 89 Total Protein 6.3 Albumin 3.3 L Globulin 2.9 Albumin/Globulin Ratio 1.1 Assessment & Plan (1) Asthma Assessment and Plan: No wheezing on exam ABG ordered to evaluate for home o2 - ABG to be done on room air continue current medications Status: Acute (2) Pulmonary fibrosis Status: Acute
[2018-11-19] MEDS ORDERED: Albuterol-Ipratrop 3 mg / 0.5 (3 ml) UD INH SCH (20:00)
[2018-11-19 21:48] LABS: ABG ALLEN TEST POS; ARTERIAL BLOOD GAS HCO3 26.9 mmol/L (21-28); ARTERIAL BLOOD GAS HEMOGLOBIN 14.6 g/dL (11.7-17.4); ARTERIAL BLOOD GAS O2 SAT 92.2 % (95-98); ARTERIAL BLOOD GAS PCO2 52 mm/Hg (35-45); ARTERIAL BLOOD GAS PH 7.36 (7.35-7.45); ARTERIAL BLOOD GAS PO2 60 mm/Hg (80-100)
[2018-11-20] MEDS: Albuterol-Ipratrop 3 mg / 0.5 (3 ml) UD INH SCH ×4 (00:48→12:04)
[2018-11-20 01:17] VITALS: O2SAT 95
[2018-11-20 07:11] LABS: BASO # 0.1 K/uL (0.0-0.2); BASO % 1.1 % (0.0-2.0); EOS # 0.3 K/uL (0.0-0.7); EOS % 3.2 % (0.0-4.0); HEMOGLOBIN 14.2 g/dL (11.0-16.0); LYMPH # 2.2 K/uL (1.0-4.3); LYMPH % 28.2 % (20.0-40.0); MEAN CELL VOLUME 99.5 fL (81.0-99.0); MEAN CORPUSCULAR HEMOGLOBIN 33.4 pg (27.0-31.0); MEAN CORPUSCULAR HGB CONC 33.6 g/dL (33.0-37.0); MEAN PLATELET VOLUME 9.4 fL (7.2-11.7); MONO % 12.8 % (0.0-10.0); NEUT # 4.3 K/uL (1.8-7.0); NEUT % 54.7 % (50.0-75.0); NRBC % 0.1 % (0.0-2.0); RBC 4.25 Mil/uL (3.80-5.20); RED CELL DISTRIBUTION WIDTH 15.1 % (11.5-14.5); WHITE BLOOD COUNT 7.8 K/uL (4.8-10.8)
[2018-11-20 07:33] LABS: ALB/GLOB RATIO 1.2 (1.0-2.1); ALBUMIN 3.4 g/dL (3.5-5.0); ALT/SGPT 144 U/L (9-52); AST/SGOT 115 U/L (14-36); BLOOD UREA NITROGEN 9 mg/dL (7-17); CALCIUM 8.3 mg/dl (8.6-10.4); GFR NON-AFRICAN AMERICAN > 60
[2018-11-20 07:50] VITALS: BP 101/66; PULSE 60; TEMP 98.1
[2018-11-20] MEDS: Fluticasone-Vilanterol 100/25mcg Diskus INH SCH (08:18)
[2018-11-20] MEDS: Methadone 40 mg Tab PO SCH (09:28)
[2018-11-20] MEDS: Multiple Vitamins Tab PO SCH (09:29)
[2018-11-20] MEDS: Pantoprazole 40 mg EC Tab PO SCH (09:29)
[2018-11-20] MEDS: Simethicone 80 mg Chewtab PO SCH ×2 (09:29→14:13)
--- NOTE | 2018-11-20 13:24 | CP.PCM.PN ---
Subjective - Date & Time of Evaluation Date of Evaluation: 11/20/18 Time of Evaluation: 13:00 - Subjective Subjective: PGY-1 Medicine Progress Note for Dr. Dyer Patient was seen and examined today at bedside in no acute distress. Nurse reports no overnight events. Patient is extremely tired and was slow in responding to questions. Denies chest pain, shortness of breath, headache, dizziness, abdominal pain, nausea, vomiting, constipation, diarrhea. Objective - Vital Signs/Intake and Output Vital Signs (last 24 hours): Temp Pulse Resp BP Pulse Ox 98.1 F 60 20 101/66 95 11/20/18 07:46 11/20/18 07:46 11/20/18 07:46 11/20/18 07:46 11/20/18 07:46 Intake and Output: 11/20/18 11/20/18 06:59 18:59 Intake Total 800 200 Balance 800 200 - Medications Medications: Current Medications Albuterol (Ventolin Hfa 90 Mcg/Actuation (8 G)) 1 puff INH RQ4 PRN PRN Reason: SOB Last Admin: 11/04/18 06:57 Dose: 1 puff Albuterol/Ipratropium (Duoneb 3 Mg/0.5 Mg (3 Ml) Ud) 3 ml INH RQ4 [facility] Last Admin: 11/20/18 08:18 Dose: 3 ml Clonazepam (Klonopin) 1 mg PO BID [facility] Last Admin: 11/20/18 09:29 Dose: 1 mg Clonidine HCl (Catapres) 0.1 mg PO Q4H PRN PRN Reason: Symptoms of alcohol withdrawl Last Admin: 11/11/18 09:58 Dose: 0.1 mg Escitalopram Oxalate (Lexapro) 10 mg PO DAILY [facility] Last Admin: 11/20/18 09:29 Dose: 10 mg Fluticasone/Vilanterol (Breo Ellipta 100-25 Mcg Inh) 1 puff INH RQD [facility] Last Admin: 11/20/18 08:18 Dose: 1 puff Folic Acid (Folic Acid) 1 mg PO DAILY [facility] Last Admin: 11/20/18 09:29 Dose: 1 mg Guaifenesin (Robitussin) 100 mg PO Q4H PRN PRN Reason: Cough Last Admin: 11/09/18 10:05 Dose: 100 mg Heparin Sodium (Porcine) (Heparin) 5,000 units SC Q8 [facility] Last Admin: 11/20/18 06:47 Dose: 5,000 units Ibuprofen (Motrin Tab) 600 mg PO Q6H PRN PRN Reason: Pain, moderate (4-7) Last Admin: 11/05/18 10:00 Dose: 600 mg Methadone HCl (Methadose) 120 mg PO DAILY [facility] Last Admin: 11/20/18 09:28 Dose: 120 mg Methadone HCl (Methadone) 20 mg PO DAILY [facility] Last Admin: 11/20/18 09:29 Dose: 20 mg Mirtazapine (Remeron) 30 mg PO HS [facility] Last Admin: 11/19/18 21:48 Dose: 30 mg Multivitamins (Hexavitamin) 1 tab PO DAILY [facility] Last Admin: 11/20/18 09:29 Dose: 1 tab Nicotine (Nicoderm Cq) 1 patch TD DAILY [facility] Last Admin: 11/20/18 09:29 Dose: 1 patch Ondansetron HCl (Zofran Inj) 4 mg IM Q6H PRN PRN Reason: Nausea/Vomiting Last Admin: 11/09/18 09:45 Dose: 4 mg Pantoprazole Sodium (Protonix Ec Tab) 40 mg PO DAILY [facility] Last Admin: 11/20/18 09:29 Dose: 40 mg Simethicone (Mylicon Chew Tab) 80 mg PO QID [facility] Last Admin: 11/20/18 09:29 Dose: 80 mg Thiamine HCl (Vitamin B1 Tab) 100 mg PO DAILY [facility] Last Admin: 11/20/18 09:29 Dose: 100 mg Trazodone HCl (Desyrel) 200 mg PO HS PRN PRN Reason: Insomnia Last Admin: 11/19/18 21:47 Dose: 200 mg - Labs Labs: 11/20/18 06:59 11/20/18 06:59 - Constitutional Appears: Well, No Acute Distress - Head Exam Head Exam: ATRAUMATIC, NORMOCEPHALIC - Eye Exam Eye Exam: EOMI, Normal appearance - ENT Exam ENT Exam: Mucous Membranes Moist - Respiratory Exam Respiratory Exam: Clear to Ausculation Bilateral, NORMAL BREATHING PATTERN. absent: Rales, Rhonchi, Wheezes Additional comments: 3L O2 via NC - Cardiovascular Exam Cardiovascular Exam: REGULAR RHYTHM, +S1, +S2 - GI/Abdominal Exam GI & Abdominal Exam: Soft, Normal Bowel Sounds. absent: Tenderness - Extremities Exam Extremities Exam: Normal Capillary Refill. absent: Calf Tenderness - Neurological Exam Neurological Exam: Alert, Awake, Normal Gait, Oriented x3 - Psychiatric Exam Psychiatric exam: Normal Affect, Normal Mood - Skin Skin Exam: Dry, Intact, Normal Color, Warm Assessment and Plan - Assessment and Plan (Free Text) Assessment: 48yo F with past medical history of asthma, depression, diverticulitis, bipolar disorder, opioid abuse (on methadone) and alcohol abuse, admitted to psychiatry unit for bipolar disorder and alcohol abuse. Medicine consulted then transferred for evaluation of b/l lower extremity edema, which has now resolved. She is still having SOB and desaturating when not on supplemental O2. Plan: Oxygen desaturation with elevated d-dimer likely bilateral pulmonary fibrosis - patient snorted heroin for years prior to quitting. continues to smoke tobacco daily - CTA (11/04): neg for PE - patient failed 6 min pre- post- walk on 11/05. Was 95% pre-walk, Desat down to 77% after 4.5 min walk. - patient again failed on 11/06. Was taken off oxygen and interviewed. Desat down to 76% prior to walk. - Pulm consulted: Dr. Pond - patsy appreciated - agree to d/c with home O2 - Pulm reconsulted: Dr. Damon - help appreciated - ABG on RA showed she did not need home O2 - 6 minute walk today: LE Edema with elevated d-dimer - resolved - d-dimer: 302 - LE Doppler (11/03): neg for DVT - XR R Foot (11/03): No acute Fx or dislocation Asthma - Duonebs 3ml INH q4 [facility] - Ventolin 1 puff q4h PRN - Mucinex 600mg po bid - Guaifenesin 100mg po q4 prn - Breo Ellipta 1 puff daily Mood Disorder: Bipolar Depression with Anxiety - Lexapro 10mg PO daily - Mirtazapine 30mg PO HS - Trazodone 200mg PO HS PRN - Klonopin 1mg po BID Alcohol Use Disorder - US Abd (11/03): hepatomegaly/hepatic steatosis; - CT A/P (11/03): severe fatty liver - ECHO (11/03): LVEF: 59.5% - Clonidine 0.1mg PO q4h PRN - Folic acid 1mg PO daily - Multivitamin 1 tab PO daily - Thiamine 100mg PO daily - Zofran 1mg IM q6 prn Opioid Use Disorder - Methadone 140mg po daily - UDS and repeat UDS pos only for Methadone Nicotine Use Disorder - Nicotine patch 14mg/day td daily History Hepatitis C - Per patient, previously treated and cleared - HepC Ab reactive, HCV RNA not detected, NS5a Subtype not detected PPx - DVT: Heparin 5000 U SC Q8 - GI: Protonix 40mg po daily - Diet: Regular - Ibuprofen 600mg po q6 prn - Simethecone 80mg po qid Dispo: Patient will require home O2 upon discharge. SW/CM is on the case. d/w Dr. Gomez [employer] PGY-1
--- NOTE | 2018-11-20 15:16 | CP.PCM.DIS ---
Provider - Provider Date of Admission: 11/03/18 06:38 Attending physician: Denys Dyer MD Consults: 11/19/18 14:19 Pulmonology Consult Routine Comment: Consulting Provider: Rush Damon Consulting Physician: Rush Damon Reason for Consult: persistent hypoxia 11/03/18 15:46 Hospitalist Consult Routine Comment: Consulting Provider: Devin Herring Consulting Physician: Devin Herring Reason for Consult: swollen legs and feet and pain to right foot 11/04/18 06:32 Hospitalist Consult Routine Comment: Consulting Provider: Devin Herring Consulting Physician: Devin Herring Reason for Consult: O2 sat 80% room air, 90% 2L nasal cannula, dizziness. 11/04/18 19:41 Physician Consult Routine Comment: Consulting Provider: Brent Carrasco Consulting Physician: Brent Carrasco Reason for Consult: bipolar disorder 11/06/18 11:24 Pulmonology Consult Routine Comment: Hx Snorting Heroine Consulting Provider: Vinay Pond Consulting Physician: Vinay Pond Reason for Consult: Drops in O2. Likely 2nd Pulm Fibrosis. Needs Home O2 Time Spent in preparation of Discharge (in minutes): 45 Diagnosis - Discharge Diagnosis (1) Asthma Status: Acute (2) Bipolar disorder Status: Acute (3) Pulmonary fibrosis Status: Acute Hospital Course - Lab Results Lab Results: Most Recent Lab Values WBC 7.8 K/uL (4.8-10.8) 11/20/18 06:59 RBC 4.25 Mil/uL (3.80-5.20) 11/20/18 06:59 Hgb 14.2 g/dL (11.0-16.0) 11/20/18 06:59 Hct 42.3 % (34.0-47.0) 11/20/18 06:59 MCV 99.5 fL (81.0-99.0) H 11/20/18 06:59 MCH 33.4 pg (27.0-31.0) H 11/20/18 06:59 MCHC 33.6 g/dL (33.0-37.0) 11/20/18 06:59 RDW 15.1 % (11.5-14.5) H 11/20/18 06:59 Plt Count 242 K/uL (130-400) 11/20/18 06:59 MPV 9.4 fL (7.2-11.7) 11/20/18 06:59 Neut % (Auto) 54.7 % (50.0-75.0) 11/20/18 06:59 Lymph % (Auto) 28.2 % (20.0-40.0) 11/20/18 06:59 Davidson % (Auto) 12.8 % (0.0-10.0) H 11/20/18 06:59 Eos % (Auto) 3.2 % (0.0-4.0) 11/20/18 06:59 Baso % (Auto) 1.1 % (0.0-2.0) 11/20/18 06:59 Neut # (Auto) 4.3 K/uL (1.8-7.0) 11/20/18 06:59 Lymph # (Auto) 2.2 K/uL (1.0-4.3) 11/20/18 06:59 Davidson # (Auto) 1.0 K/uL (0.0-0.8) H 11/20/18 06:59 Eos # (Auto) 0.3 K/uL (0.0-0.7) 11/20/18 06:59 Baso # (Auto) 0.1 K/uL (0.0-0.2) 11/20/18 06:59 Differential Comment 11/05/18 09:52 D-Dimer, Quantitative 302 ng/mlDDU (0-243) H 11/03/18 19:33 Puncture Site Rradial 11/19/18 21:40 pCO2 52 mm/Hg (35-45) H 11/19/18 21:40 pO2 60 mm/Hg (80-100) L 11/19/18 21:40 HCO3 26.9 mmol/L (21-28) 11/19/18 21:40 ABG pH 7.36 (7.35-7.45) 11/19/18 21:40 ABG Total CO2 31.0 mmol/L (22-28) H 11/19/18 21:40 ABG O2 Saturation 92.2 % (95-98) L 11/19/18 21:40 ABG Base Excess 2.8 mmol/L (-2.0-3.0) 11/19/18 21:40 ABG Hemoglobin 14.6 g/dL (11.7-17.4) 11/19/18 21:40 ABG Carboxyhemoglobin 2.4 % (0.5-1.5) H 11/19/18 21:40 POC ABG HHb (Measured) 7.5 % (0.0-5.0) H 11/19/18 21:40 ABG Methemoglobin 1.1 % (0.0-3.0) 11/19/18 21:40 Bunny Test Pos 11/19/18 21:40 A-a O2 Difference 25.0 mm/Hg 11/19/18 21:40 Respiratory Index 0.4 11/19/18 21:40 Hgb O2 Saturation 89.0 % (95.0-98.0) L 11/19/18 21:40 FiO2 21.0 % 11/19/18 21:40 Sodium 137 mmol/L (132-148) 11/20/18 06:59 Potassium 3.6 mmol/L (3.6-5.2) 11/20/18 06:59 Chloride 101 mmol/L (98-107) 11/20/18 06:59 Carbon Dioxide 30 mmol/L (22-30) 11/20/18 06:59 Anion Gap 10 (10-20) 11/20/18 06:59 BUN 9 mg/dL (7-17) 11/20/18 06:59 Creatinine 0.5 mg/dL (0.7-1.2) L 11/20/18 06:59 Est GFR ( Amer) > 60 11/20/18 06:59 Est GFR (Non-Af Amer) > 60 11/20/18 06:59 Random Glucose 97 mg/dL (65-105) 11/20/18 06:59 Uric Acid 6.9 mg/dL (2.2-7.5) 11/05/18 06:41 Calcium 8.3 mg/dl (8.6-10.4) L 11/20/18 06:59 Phosphorus 4.2 mg/dL (2.5-4.5) 11/17/18 07:53 Magnesium 1.9 mg/dL (1.6-2.3) 11/17/18 07:53 Total Bilirubin 0.6 mg/dL (0.2-1.3) 11/20/18 06:59 AST 115 U/L (14-36) H 11/20/18 06:59 ALT 144 U/L (9-52) H 11/20/18 06:59 Alkaline Phosphatase 87 U/L (38-126) 11/20/18 06:59 NT-Pro-B Natriuret Pep 37.7 pg/mL (0-450) 11/03/18 19:33 Total Protein 6.2 g/dL (6.3-8.3) L 11/20/18 06:59 Albumin 3.4 g/dL (3.5-5.0) L 11/20/18 06:59 Globulin 2.8 gm/dL (2.2-3.9) 11/20/18 06:59 Albumin/Globulin Ratio 1.2 (1.0-2.1) 11/20/18 06:59 Lipase 516 U/L (23-300) H 11/03/18 04:25 Urine Color Yellow (YELLOW) 11/03/18 04:18 Urine Clarity Clear (Clear) 11/03/18 04:18 Urine pH 8.0 (5.0-8.0) 11/03/18 04:18 Ur Specific [place] 1.006 (1.003-1.030) 11/03/18 04:18 Urine Protein 1+ mg/dL (NEGATIVE) H 11/03/18 04:18 Urine Glucose (UA) Normal mg/dL (Normal) 11/03/18 04:18 Urine Ketones Negative mg/dL (NEGATIVE) 11/03/18 04:18 Urine Blood Negative (NEGATIVE) 11/03/18 04:18 Urine Nitrate Negative (NEGATIVE) 11/03/18 04:18 Urine Bilirubin Negative (NEGATIVE) 11/03/18 04:18 Urine Urobilinogen 2.0 mg/dL (0.2-1.0) H 11/03/18 04:18 Ur Leukocyte Esterase Trace [place]/uL (Negative) 11/03/18 04:18 Urine WBC (Auto) 1 /hpf (0-5) 11/03/18 04:18 Urine RBC (Auto) 1 /hpf (0-3) 11/03/18 04:18 Ur Squamous Epith Cells 2 /hpf (0-5) 11/03/18 04:18 Urine Bacteria Rare (<OCC) 11/03/18 04:18 Urine HCG, Qual Negative (NEGATIVE) 11/03/18 04:18 Urine Opiates Screen Negative (NEGATIVE) 11/11/18 22:26 Urine Methadone Screen Positive (NEGATIVE) H 11/11/18 22:26 Ur Barbiturates Screen Negative (NEGATIVE) 11/11/18 22:26 Ur Phencyclidine Scrn Negative (NEGATIVE) 11/11/18 22:26 Ur Amphetamines Screen Negative (NEGATIVE) 11/11/18 22:26 U Benzodiazepines Scrn Negative (NEGATIVE) 11/11/18 22:26 U Oth Cocaine Metabols Negative (NEGATIVE) 11/11/18 22:26 U Cannabinoids Screen Negative (NEGATIVE) 11/11/18 22:26 Alcohol, Quantitative 212 mg/dl (0-10) H 11/03/18 04:25 Hepatitis A IgM Ab Negative (NEGATIVE) 11/12/18 07:00 Hep Bs Antigen Negative (NEGATIVE) 11/12/18 07:00 Hep B Core IgM Ab Negative (NEGATIVE) 11/12/18 07:00 Hepatitis C Antibody Reactive (NEGATIVE) 11/12/18 07:00 Hep C NS5a Subtype Not detected 11/13/18 11:51 HCV RNA Qual (TMA) Not detected 11/13/18 11:[address] [facility] 11/13/18 11:[address] [facility] 11/13/18 11:[address] [facility] 11/13/18 11:[address] [facility] 11/13/18 11:[address] [facility] 11/13/18 11:51 HIV 1&2 Antibody Screen Negative (NEGATIVE) 11/12/18 07:00 - Hospital Course Hospital Course: Patient has a past medical history of asthma, depression, diverticulitis, bipolar disorder, opioid abuse (on methadone) and alcohol abuse. Medicine consulted for unilateral R leg edema. Patient states that she noticed swelling of her right foot and ankle about 2-3 days ago which came on suddenly. The pain is 10/10 and does not radiate to proximal leg or foot. Patient notes increased numbness/tingling. States she has an allergy to Cipro, but has not taken recently. She denies any recent trauma to the area including cuts, scrapes, bruises, or walking barefoot. Denies history of DVT/PE. Pt is a 1/2 ppd smoker. Denies OCP use. She is currently unemployed and lives at home with her mother. Patient does also report facial swelling, though states she gets this from drinking. Denies facial pain, does report blurry vision though states she gets this from withdrawal. Denies shortness of breath out of proportion to her usual asthma. 48yo F with past medical history of asthma, depression, diverticulitis, bipolar disorder, opioid abuse (on methadone) and alcohol abuse, admitted to psychiatry unit for bipolar disorder and alcohol abuse. Medicine consulted then transferred for evaluation of b/l lower extremity edema, which has now resolved. LE Doppler was negative for DVT and XR showed no fracture or dislocation. She was still having SOB and desaturating when not on supplemental O2. CTA was neg for PE, but patient continuously failed 6 min walks and would desaturate. Duonebs and Ventolin with Mucinex and Guaifenesin and Breo were used to aid her breathing. Her oxygen desaturation slowly improved until a room air ABG showed hypoxia, but no need for home oxygen. Her psychiatric conditions were managed by psychiatry. She was tapered off Alcohol. US Abd showed hepatomegaly and hepatic steatosis. CT A/P showed sever fatty liver, consistent with her history of hepatitis C. ECHO showed normal LVEF 59.5%. Her methadone 140mg daily was continued. She stopped smoking for the hospitalization and controlled with nicotine patch while admitted. Primary Diagnosis: Pulmonary fibrosis, Asthma exacerbation, Bipolar disorder Patient is clear for discharge per Dr. Dyer. Patient can restart all of her medications. In addition to the medications that psychiatry has given you, please also take the two breathing medications: Breo Ellipta 1 puff per day. This is your maintenance inhaler Albuterol 1 puff q4 prn, when you are short of breath as this is your rescue inhaler You will need to follow up with your PMD, Dr. Adair, within a week to keep up with this. Also, follow up with pulmonology and psychiatry as needed. To restart your methadone, you will need to start going back to the [facility]. If your breathing becomes labored, or you start decompensating: you get dizzy, short of breath, wheezing, please come back to the ED. You also need to stop smoking - the patch you've had during your hospital stay is also available over the counter. Plan was discussed with patient who understood and agreed. This is a summary of the hospital events. Please refer to the EMR for more detail. - Date & Time of H&P Date of H&P: 11/20/18 Time of H&P: 14:00 Discharge Exam - Head Exam Head Exam: ATRAUMATIC, NORMOCEPHALIC - Eye Exam Eye Exam: EOMI, Normal appearance, PERRL - ENT Exam ENT Exam: Mucous Membranes Moist - Respiratory Exam Respiratory Exam: Clear to PA & Lateral, NORMAL BREATHING PATTERN. absent: Decreased Breath Sounds, Rales, Rhonchi, Wheezes Additional comments: 6 min walk: 91% O2 saturation RA prior to walk. desatted to 88% after a full 6 minutes without difficulty, chest tightness, shortness of breath. - Cardiovascular Exam Cardiovascular Exam: REGULAR RHYTHM, +S1, +S2 - GI/Abdominal Exam GI & Abdominal Exam: Normal Bowel Sounds, Soft. absent: Tenderness - Extremities Exam Extremities exam: normal capillary refill, pedal pulses present - Neurological Exam Neurological exam: Alert, CN II-XII Intact, Normal Gait, Oriented x3, Reflexes Normal - Psychiatric Exam Psychiatric exam: Normal Affect, Normal Mood - Skin Skin Exam: Dry, Intact, Normal Color, Warm Discharge Plan - Discharge Medications Prescriptions: Albuterol HFA [Ventolin HFA 90 mcg/actuation (8 g)] 1 puff INH RQ4 PRN #1 inhaler PRN Reason: SOB Escitalopram [Lexapro] 10 mg PO DAILY #30 tab Fluticasone/Vilanterol 100/25 [Breo Ellipta 100-25 MCG INH] 1 puff INH RQD #1 puff Mirtazapine [Remeron] 30 mg PO HS #30 tab traZODone [Desyrel] 100 mg PO HS PRN #60 tab PRN Reason: Insomnia - Follow Up Plan Disposition: HOME/ ROUTINE Instructions: Asthma, Adult (DC), Alcohol Abuse and Alcoholism (DC), Albuterol, Fluticasone and Vilanterol, Escitalopram, Mirtazapine, Trazodone, Alcohol Use Disorder (DC) Additional Instructions: Patient is clear for discharge per Dr. Dyer. Patient can restart all of her medications. In addition to the medications that psychiatry has given you, please also take the two breathing medications: Breo Ellipta 1 puff per day. This is your maintenance inhaler Albuterol 1 puff q4 prn, when you are short of breath as this is your rescue inhaler You will need to follow up with your PMD, Dr. Adair, within a week to keep up with this. Also, follow up with pulmonology and psychiatry as needed. To restart your methadone, you will need to start going back to the [facility]. If your breathing becomes labored, or you start decompensating: you get dizzy, short of breath, wheezing, please come back to the ED. You also need to stop smoking - the patch you've had during your hospital stay is also available over the counter. Plan was discussed with patient who understood and agreed. Referrals: Rush Damon MD [Staff Provider] - Markus Adair MD [Non-Staff] -
== END 2018-11-20 16:45 | disposition home or self-care (01) | DRG 751 ==
LOC: C.ER 02:46 → C.5E 06:38 → C.3T 11-04 19:43
PROVIDERS: ADMIT Internal Medicine; ATTEND Internal Medicine
PROC: GZHZZZZ Group Psychotherapy (ICD-10-PCS; principal; 2018-11-03)
PROC: GZ56ZZZ Individual Psychotherapy, Supportive (ICD-10-PCS; 2018-11-03)
DX: F33.2 Major depressive disorder, recurrent severe without psychotic features (principal); J84.10 Pulmonary fibrosis, unspecified; F11.20 Opioid dependence, uncomplicated; J45.21 Mild intermittent asthma with (acute) exacerbation; R13.10 Dysphagia, unspecified; R45.851 Suicidal ideations; F31.30 Bipolar disorder, current episode depressed, mild or moderate severity, unspecified; F41.8 Other specified anxiety disorders; F17.210 Nicotine dependence, cigarettes, uncomplicated; J44.9 Chronic obstructive pulmonary disease, unspecified; J98.11 Atelectasis; K21.9 Gastro-esophageal reflux disease without esophagitis; K44.9 Diaphragmatic hernia without obstruction or gangrene; R09.02 Hypoxemia; Y90.7 Blood alcohol level of 200-239 mg/100 ml; R79.1 Abnormal coagulation profile; Z99.81 Dependence on supplemental oxygen; F10.230 Alcohol dependence with withdrawal, uncomplicated

== ENCOUNTER 2019-02-12 08:24 | Outpatient (CLI) | payer OTHER | END 2019-02-12 08:25 | disposition home or self-care (01) | LOC: C.MAMMO 08:24 | DX: Z12.31 Encounter for screening mammogram for malignant neoplasm of breast (principal) ==